=== PATIENT | male | born 1940 | race Caucasian/White ===

== ENCOUNTER 2017-03-15 11:11 | Inpatient (IN) | payer MEDICARE ==
[~2017-03-15] VITALS: Ht 170.2 cm; Wt 67.3 kg
[2017-03-15] VITALS (8 sets, daily range): BP systolic 90–130; BP diastolic 56–84; PULSE 89–118; RESP 20–40; TEMP 98.1; Ht 170.2 cm; Wt 67.3 kg
--- NOTE | 2017-03-15 11:39 | RADRPT ---
PROCEDURE: XR Chest. CLINICAL INDICATION: Shortness of breath TECHNIQUE: Chest AP portable. COMPARISON: No comparison available. FINDINGS: The mediastinal structures are unremarkable. There is calcification of the thoracic aorta (consiste nt with atherosclerosis). There is mild cardiomegaly. The pulmonary vascularity is normal. There is extensive bilateral interstitial nodular disease. No consolidation is identified. The pleural s paces are unremarkable. There are senescent changes of the axial skeleton. IMPRESSION: Calcification of the thoracic aorta (consistent with atherosclerosis) Mild cardiomegaly Extensive bilateral interstitial nodular disease Recommendations: CT chest for further evaluation RPTAT: HGDB .Louie Connelly MD, MD Date Time Electronically viewed and signed by .Louie Connelly MD, MD on 03/15/2017 11:38 .B/
[2017-03-15 11:44] LABS: AADO2 Arterial 403.9 mmHg (7.0-24.0); Allen Test ACCEPTAB; Arterial Base Excess 7.6 mmol/L (-3.0-3); Arterial COHb 0.8 % (0.0-3.0); Arterial HCO3 33.8 mmol/L (22.0-26.0); Arterial MetHb 0.4 % (0.0-1.5); Arterial Total Hemglobin 13.8 g/dl (12.0-18.0); Blood Gas IEPAP 15/8; Blood Gas PS 7; MODE MASK - BIPAP
[2017-03-15] MEDS ORDERED: LEVOFLOXACIN 750MG/D5W (PMX) 150 ML IVPB ONE (12:00)
[2017-03-15] MEDS ORDERED: VANCOMYCIN 1 GM (PMX) 250 ML IVPB SCH (12:00)
[2017-03-15] MEDS ORDERED: ACET325S PO (12:00)
[2017-03-15] MEDS ORDERED: PIPER-TAZO 3.375 GM IV (PMX) 100 ML IVPB ONE (12:00)
[2017-03-15 12:06] LABS: ADD SCAN DIFF NO
[2017-03-15 12:15] LABS: BASOPHILS % 0.3 % (0.0-2.0); EOSINOPHILS % 0.3 % (0.0-7.0); HEMATOCRIT 41.9 % (42.0-52.0); HEMOGLOBIN 13.8 g/dl (14.0-18.0); LYMPHOCYTES # 0.8 10^3/ul (0.8-2.9); LYMPHOCYTES % 8.3 % (15.0-51.0); MEAN CORPUSCULAR HEMOGLOBIN 31.3 pg (29.0-33.0); MEAN CORPUSCULAR HGB CONC 32.9 g/dl (32.0-37.0); MONOCYTE # 0.5 10^3/ul (0.3-0.9); MONOCYTES % 5.4 % (0.0-11.0); NEUTROPHIL # 8.4 10^3/ul (1.6-7.5); NEUTROPHILS % 83.7 % (39.0-77.0); PLATELET COUNT 243 10^3/UL (140-415); RED BLOOD COUNT 4.41 10^6/ul (4.70-6.10); RED CELL DISTRIBUTION WIDTH 13.2 % (11.5-14.5)
[2017-03-15] MEDS ORDERED: SERT25TA PO (12:17)
[2017-03-15] MEDS ORDERED: LACTINEX PO (12:17)
[2017-03-15] MEDS ORDERED: SENN-53 PO (12:17)
[2017-03-15] MEDS ORDERED: IPRA3AMP INHALATION (12:17)
[2017-03-15] MEDS ORDERED: MYL80 PO (12:17)
[2017-03-15] MEDS ORDERED: NOVO3I SC (12:17)
[2017-03-15] MEDS ORDERED: CHOL400T10 PO (12:17)
[2017-03-15] MEDS ORDERED: MIRT7.5T8 PO (12:17)
[2017-03-15] MEDS ORDERED: ATOR10TA65 PO (12:17)
[2017-03-15] MEDS ORDERED: CALC200T3 PO (12:17)
[2017-03-15] MEDS ORDERED: CLON-379 PO (12:17)
[2017-03-15] MEDS ORDERED: ALPR0.254 PO (12:17)
[2017-03-15] MEDS ORDERED: DICY10CA60 PO ×2 (12:17→12:19)
[2017-03-15] MEDS ORDERED: PANT40TA3 PO (12:17)
[2017-03-15] MEDS ORDERED: BISA10SU75 PR (12:17)
[2017-03-15] MEDS ORDERED: MULT-276 PO (12:17)
[2017-03-15] MEDS ORDERED: FLUT9.9S NASAL (12:17)
[2017-03-15] MEDS ORDERED: PRED10TA PO (12:17)
[2017-03-15] MEDS ORDERED: MAG355OR15 PO (12:17)
[2017-03-15] MEDS ORDERED: SYMB80120 INHALATION (12:17)
[2017-03-15] MEDS ORDERED: FOLI-49 PO (12:17)
[2017-03-15] MEDS ORDERED: GUAI120011 PO (12:17)
[2017-03-15 12:23] LABS: ALBUMIN 3.7 g/dl (3.3-4.9)
[2017-03-15 12:24] LABS: CHLORIDE 94 mmol/L (97-110); INR 0.96; PARTIAL THROMBOPLASTIN TIME 28.5 Sec (25.0-35.0); POTASSIUM 5.1 mmol/L (3.5-5.1); PROTIME 12.8 Sec (12.2-14.2); SODIUM 134 mmol/L (135-144)
[2017-03-15 12:26] LABS: BILIRUBIN,INDIRECT 0.5 mg/dl (0-1.1); BILIRUBIN,TOTAL 0.5 mg/dl (0.2-1.3); CREATININE 0.55 mg/dl (0.61-1.24)
[2017-03-15 12:27] LABS: ALANINE AMINOTRANSFERASE 43 IU/L (13-69); ALKALINE PHOSPHATASE 74 IU/L (42-121); ANION GAP 10 (8-16); ASPARTATE AMINO TRANSFERASE 27 IU/L (15-46); BLOOD UREA NITROGEN 14 mg/dl (7-20); CALCIUM 9.4 mg/dl (8.4-10.2); CARBON DIOXIDE 35 mmol/L (21-31); GLUCOSE 146 mg/dl (70-220); TOTAL PROTEIN 7.4 g/dl (6.1-8.1)
[2017-03-15 12:50] LABS: TROPONIN-I < 0.012 ng/ml (0.00-0.12)
--- NOTE | 2017-03-15 12:59 | ERA ---
ER Documentation Chief Complaint Date/Time DATE: 03/15/17 TIME: 1119 Chief Complaint BIB RA FOR EVAL OF SOB. CPAP ON ARRIVAL HPI 76-year-old male brought to the emergency department by ambulance for evaluation of shortness of breath. Patient arrives in respiratory distress unable to provide history. History available from my conversations with the patient's daughter. Patient has an extensive history of pulmonary fibrosis with previous episodes of decompensation. Over the last few hours, patient's been having increasing shortness of breath. He reports no chest pain, fevers, hemoptysis, sputum production. 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 Pre-hospital vital signs were reviewed. Pre-hospital diagnostic tests were reviewed. BiPAP was initiated from the paramedics Upon arrival, patient remains in respiratory distress. ROS All systems reviewed and are negative except as per history of present illness. Medications Home Meds Reported Medications Dicyclomine Hcl* (Bentyl*) 10 Mg Capsule, 20 MG PO QID, CAP 03/15/17 Cholecalciferol* (Vitamin D*) 400 Unit Tablet, 1200 UNIT PO DAILY, TAB 03/15/17 Simethicone* (Mylicon*) 80 Mg Tab, 80 MG PO Q8H, TAB 03/15/17 Sennosides* (Senna Lax*) 8.6 Mg Tablet, 1 TAB PO BID, TAB 03/15/17 Sertraline Hcl* (Zoloft*) 25 Mg Tablet, 25 MG PO DAILY, #30 TAB 03/15/17 Pantoprazole* (Protonix*) 40 Mg Tablet.dr, 40 MG PO DAILY, TAB 03/15/17 Multivit,Tx,Iron/Calcm/FA/Mins (Thera-M Caplet) 1 Each Tablet, 1 TAB PO DAILY, TAB 03/15/17 Prednisone* (Prednisone*) 10 Mg Tab, 10 MG PO DAILY, TAB 03/15/17 Mag Hydrox/Al Hydrox/Simeth (Maalox Plus X-Strength Susp) 355 Ml Oral.susp, 30 ML PO Q4H Y for STOMACH UPSET 03/15/17 Lactobacillus Acidophilus* (Lactinex*) 1 Tab Chew, 1 TAB PO DAILY, TAB 03/15/17 Insulin Aspart* (Novolog Insulin Pen*) 100 Unit/Ml Soln, 0-12 SC .SLIDING SCALE AC, EA 03/15/17 Guaifenesin (Mucinex) 1,200 Mg Tab.er.12h, 600 MG PO BID WITH MEALS, TAB 03/15/17 Fluticasone Propionate (Flonase Allergy Relief) 9.9 Ml Anthony.susp, 1 SPRAY NASAL BID, #1 BOTTLE TO EACH NOSTRIL 03/15/17 Ipratropium-Albuterol (Ipratropium-Albuterol) 0.5-3 Mg/3 Ml Ampul.neb, 3 ML INHALATION Q4, #30 VIAL 03/15/17 Dicyclomine Hcl* (Bentyl*) 10 Mg Capsule, 10 MG PO QID, CAP 03/15/17 Clonidine Hcl* (Clonidine Hcl*) 0.1 Mg Tab, 0.1 MG PO Q6 Y for HTN, TAB 03/15/17 Calcium Carbonate (Tums) 200MG Calcium Chew, 1000 TAB PO Q4 Y for heart burn, TAB.CHEW 03/15/17 Mirtazapine* (Mirtazapine*) 7.5 Mg Tablet, 7.5 MG PO HS, TAB 03/15/17 Budesonide-Formoterol Fumarate* (Symbicort*) 80-4.5 Inha, 2 PUFFS INHALATION BID , #1 EACH 03/15/17 Bisacodyl* (Bisacodyl*) 10 Mg Supp, 10 MG CA Q24H Y for CONSTIPATION, SUPP 03/15/17 Atorvastatin Calcium (Atorvastatin Calcium) 10 Mg Tablet, 10 MG PO QHS, #30 TAB 03/15/17 Folic Acid* (Folic Acid*) 1 Mg Tablet, 1 MG PO DAILY, TAB 03/15/17 Alprazolam* (Alprazolam*) 0.25 Mg Tablet, 0.25 MG PO DAILY Y for ANXIETY, TAB 03/15/17 Acetaminophen* (Acetaminophen* Susp) 325 Mg/10.15 Ml Solution, 650 MG PO Q4H Y for PAIN LEVEL 1-5, ML 03/15/17 Allergies Allergies: Coded Allergies: No Known Allergy (Unverified , 03/15/17) PMhx/Soc Medical and Surgical Hx: pt denies Surgical Hx Hx Respiratory Disorders: Yes (pulmonary fibrosis) Hx Cardiac Disorders: No Hx Psychiatric Problems: Yes (anxiety.) Hx Miscellaneous Medical Probl: No (gerd) Hx Alcohol Use: No Hx Substance Use: No Hx Tobacco Use: No Smoking Status: Never smoker FmHx Noncontributory for chief complaint Physical Exam Vitals Vital Signs Date Time Temp Pulse Resp B/P Pulse Ox O2 Delivery O2 Flow Rate FiO2 03/15/17 11:41 Simple Mask 03/15/17 11:20 119 100 100 03/15/17 11:18 117 19 152/93 97 Physical Exam GENERAL: Patient is well-developed well-nourished and significant respiratory distress HEENT: Pupils equal, round, and reactive to light. EOMI. There is no scleral icterus. NECK: C-spine is soft and supple, there is no meningismus. There is no cervical lymphadenopathy. No tracheal deviation or JVD LUNGS: Crackles at bilateral bases. Patient is tachypneic and requiring assistance with BiPAP HEART: Sinus tachycardia with no murmurs rubs or gallops ABDOMEN: Soft, non-tender, non-distended. There are bowel sounds in all four quadrants. No rebound or guarding. EXTREMITIES: There is no peripheral cyanosis or edema. No focal swelling or erythema. NEURO: The patient moves all four extremities with 5/5 strength. Cranial nerves II - XII are intact. Normal gait. Alert and oriented SKIN: There is no apparent rash or petechiae. HEME/LYMPHATIC: There is no evidence of excessive bruising or lymphedema. PSYCHIATRIC: The patient does not appear anxious or depressed. Result Diagram: 03/15/17 1150 03/15/17 1150 Results 24 hrs Laboratory Tests Test 03/15/17 11:19 03/15/17 11:50 Blood Gas Specimen Source Blood arterial Arterial Blood Date Drawn 03/15/2017 11:27:00 AM Arterial Blood pH (Temp corrected) 7.417 Arterial Blood pCO2 (Temp correct) 53.7mmhg Arterial Blood pO2 (Temp corrected) 255.4mmHG Arterial Blood HCO3 33.8mmol/L Arterial Blood Base Excess 7.6mmol/L Arterial Blood Oxygen Saturation 99.2mmHG Murtaza Test ACCEPTAB Arterial Blood Gas Puncture Site Left Radial Arterial Blood Carboxyhemoglobin 0.8% Arterial Blood Methemoglobin 0.4% Blood Gas A-a O2 Differential 403.9mmHg Oxyhemoglobin Percent 98.0% Total Hemoglobin 13.8g/dl Blood Gas Temperature 37.0C Blood Gas Respiration Rate 20.0 Blood Gas Actual Respiration Rate 36 Blood Gas Modality MASK - BIPAP FiO2 100.0% Blood Gas Pressure Support 7 Blood Gas IPAP/EPAP Ratio 15/8 Blood Gas Notified Whom Rena Blood Gas Notified Time 03/15/2017 11:43:50 AM White Blood Count 10.010^3/ul Red Blood Count 4.4110^6/ul Hemoglobin 13.8g/dl Hematocrit 41.9% Mean Corpuscular Volume 95.0fl Mean Corpuscular Hemoglobin 31.3pg Mean Corpuscular Hemoglobin Concent 32.9g/dl Red Cell Distribution Width 13.2% Platelet Count 58339^3/UL Mean Platelet Volume 9.0fl Neutrophils % 83.7% Lymphocytes % 8.3% Monocytes % 5.4% Eosinophils % 0.3% Basophils % 0.3% Nucleated Red Blood Cells % 0.0/100WBC Neutrophils # 8.410^3/ul Lymphocytes # 0.810^3/ul Monocytes # 0.510^3/ul Eosinophils # 0.010^3/ul Basophils # 0.010^3/ul Nucleated Red Blood Cells # 0.010^3/ul Prothrombin Time 12.8Sec Prothrombin Time Ratio 1.0 INR International Normalized Ratio 0.96 Activated Partial Thromboplast Time 28.5Sec Sodium Level 134mmol/L Potassium Level 5.1mmol/L Chloride Level 94mmol/L Carbon Dioxide Level 35mmol/L Anion Gap 10 Blood Urea Nitrogen 14mg/dl Creatinine 0.55mg/dl Glucose Level 146mg/dl Lactic Acid Level 3.5mmol/L Calcium Level 9.4mg/dl Total Bilirubin 0.5mg/dl Direct Bilirubin 0.00mg/dl Indirect Bilirubin 0.5mg/dl Aspartate Amino Transf (AST/SGOT) 27IU/L Alanine Aminotransferase (ALT/SGPT) 43IU/L Alkaline Phosphatase 74IU/L Troponin I < 0.012ng/ml Total Protein 7.4g/dl Albumin 3.7g/dl Globulin 3.70g/dl Albumin/Globulin Ratio 1.00 Current Medications Medications (Trade) Dose Ordered Sig/Kash Route PRN Reason Start Time Stop Time Status Last Admin Dose Admin Vancomycin HCl 250 ml @ 125 mls/hr ONCE IVPB 03/15/17 12:00 03/15/17 13:59 Piperacillin Sod/ Tazobactam Sod 100 ml @ 200 mls/hr ONCE ONCE IVPB 03/15/17 12:00 03/15/17 12:29 DC 03/15/17 11:52 Levofloxacin/ Dextrose (Levaquin 750 Mg/ D5W 150 ml (Pmx)) 150 ml @ 100 mls/hr ONCE ONCE IVPB 03/15/17 12:00 03/15/17 13:29 03/15/17 12:18 Procedures/MDM Patient was taken to a room, seen and evaluated. Comfort measures were initiated. BiPAP was continued. Intubation was considered, but the patient had stated that he did not wish to be intubated and therefore this was not done. Diagnostic tests were ordered and reviewed. 3 LEAD RHYTHM STRIP: Sinus tachycardia EK lead EKG reviewed by myself: Sinus tachycardia Normal Leroy and intervals Nonspecific ST and T-wave changes with no obvious ST elevation. There are T- wave inversion inferiorly and anteriorly Impression: Abnormal EKG RADIOLOGY: reviewed with the radiologist CONSULTATION: Dr. Lazar was notified for admission for the patient's primary care doctor REEVALUATION: Patient improved on BiPAP and did not require further intubation. His work of breathing improved as well. MEDICAL DECISION MAKING: Patient presents for shortness of breath. Differential diagnosis entertained included asthma, pneumonia, other cardiac and pulmonary concerns. After reviewing the patient's diagnostic tests and clinical presentation, patient appears to have a decompensation of his pulmonary fibrosis likely complicated by a pneumonia. His pneumonia is healthcare associated and he has been started on broad-spectrum antibiotics. Patient has required significant respiratory support with BiPAP and does not wish to be intubated. Fortunately, his saturations are being maintained and his work of breathing is improving with BiPAP. Patient's lactate is noted to be elevated and antibiotics have been initiated. I have withheld fluids, because of his tenuous respiratory status that I believe will be better served without aggressive high-volume fluid resuscitation. Patient will be admitted for further IV antibiotics and supportive care. CRITICAL CARE: Time:>35 minutes Patient has a significant chance of clinical deterioration Treatments/Evaluations: Close monitoring and treatment of unstable vital signs, cardiorespiratory, and neurologic status, while maintaining tight balance of fluid, respiratory, and cardiac interventions. Departure Diagnosis: Primary Impression: Respiratory failure Additional Impressions: Pulmonary fibrosis Healthcare-associated pneumonia Condition: Critical RAFIQ DEL TORO March 15, 2017 12:59
[2017-03-15] MEDS ORDERED: ONDANSETRON 4 MG INJ IV PRN (13:30)
[2017-03-15] MEDS ORDERED: morphine 2 MG INJ IV PRN (13:30)
[2017-03-15] MEDS ORDERED: LORAZEPAM 2 MG INJ ONE (15:44)
[2017-03-15] MEDS ORDERED: LORAZEPAM 2 MG INJ IV ONE (16:00)
[2017-03-15] MEDS ORDERED: GLUCOSE GEL 15 GRAM TUBE BUCCAL PRN (16:00)
[2017-03-15] MEDS ORDERED: GLUCAGON 1 MG INJ IM PRN (16:00)
[2017-03-15] MEDS ORDERED: GLUCOSE GEL 15 GRAM TUBE PO PRN ×2 (16:00)
[2017-03-15] MEDS ORDERED: LORAZEPAM 2 MG INJ IV PRN (16:00)
[2017-03-15] MEDS ORDERED: DEXTROSE 50% 50 ML SYRINGE IV PRN ×2 (16:00)
[2017-03-15] MEDS: METHYLPRED. NA SUCC 500 MG in DEXTROSE 5% 50 ML IVPB SCH (16:38)
--- NOTE | 2017-03-15 16:59 | CONS ---
DATE OF ADMISSION: 03/15/2017 DATE OF CONSULTATION: 03/15/2017 TYPE OF CONSULTATION: Pulmonary. PRIMARY PHYSICIAN: Dr. Tessa Lazar REASON FOR CONSULTATION: Hypoxemic respiratory insufficiency. HISTORY OF PRESENT ILLNESS: Briefly, this is a 76-year-old gentleman with a history of idiopathic p ulmonary fibrosis diagnosed approximately 1 year ago, initially treated at [facility] [place], followed more recently at [facility] and most recent prolonged stay at [facility] where he was managed and had his oxygen requirements reduced to 6 liters. He has subsequ ently been transferred to [facility] where he has been for the past 1 week. Of note, [place] [facility] [place] is currently not on either medication. PAST MEDICAL HISTORY: As noted above. PAST SURGICAL HISTORY: None. MEDICATIONS: Please see MAR. ALLERGIES: NONE. SOCIAL HISTORY: No tobacco, alcohol or illicit drug use. FAMILY HISTORY: Noncontributory. REVIEW OF SYSTEMS: As noted in the HPI. MEDICATIONS: See MAR. PHYSICAL EXAMINATION VITAL SIGNS: Oxygen saturation 98% on 10 liter high flow nasal cannula, blood pressure 105/71, hear t rate is 100, temperature is 98.1. HEENT: Normocephalic, atraumatic. NECK: Jugular venous pressures are mildly distended. CARDIOVASCULAR: Regular rate and rhythm, prominent S2 of the second heart sound with a II/ systol ic murmur heard at the left upper sternal border. CHEST: There are bibasilar fine rales heard bilaterally. ABDOMEN: Soft, nontender. EXTREMITIES: No cyanosis, clubbing or edema. Mucous membranes actually appear dry. LABORATORY DATA: WBC is 10.1, hemoglobin is 13.8. Bicarbonate is 35. ABG: pH is 7.42, pCO2 is 54 , pO2 is 255. BNP is 1980. Chest x-ray shows extremely low lung volumes, very advanced bilateral r eticular interstitial markings noted. IMPRESSION: Hypoxemic respiratory insufficiency secondary to possible acute exacerbated of IPF. The re is no evidence of significant volume overload despite the BNP, although this may represent some R V overload. Also, there is no obvious evidence of an active infectious process. RECOMMENDATIONS: 1. Vapotherm via high-flow nasal cannula to keep sats 88% to 92. 2. Pulse dose steroids with Solu-Medrol 500 IV daily x3 days and then rapid titration. 3. Check a 2D echo. 4. Will hold off diuresis given that he appears somewhat dry; however, overall would favor slight d iuresis. 5. Broad spectrum antibiotics for the time being with plans to de-escalate. 6. DVT and gastrointestinal prophylaxis to be implemented. 7. Very close monitoring of fingersticks and insulin sliding scale. Dictated By: EFRAIN FLORES MD NK/AMY Conf#: [id number] DID#: [id number] CC: LIZ FISHER MD; DE BENSON MD; Cady;*Delores*
[2017-03-15] MEDS ORDERED: PENDING SANTYL ORDER FOR WOUND CARE XX PRN (19:30)
[2017-03-15] MEDS: INSULIN ASPART [NOVOLOG] 3 ML PEN SC SCH ×2 (19:30→20:54)
[2017-03-15] MEDS: FAMOTIDINE 20 MG INJ IV SCH (20:54)
[2017-03-16] VITALS (22 sets, daily range): BP systolic 92–124; BP diastolic 64–86; PULSE 100–118; RESP 20–41
[2017-03-16 06:19] LABS: ADD SCAN DIFF NO
[2017-03-16 06:27] LABS: HEMATOCRIT 38.8 % (42.0-52.0); LYMPHOCYTES # 0.6 10^3/ul (0.8-2.9); LYMPHOCYTES % 8.5 % (15.0-51.0); MEAN CORPUSCULAR HEMOGLOBIN 31.6 pg (29.0-33.0); MEAN CORPUSCULAR HGB CONC 33.5 g/dl (32.0-37.0); MEAN CORPUSCULAR VOLUME 94.4 fl (82.0-101.0); MEAN PLATELET VOLUME 9.2 fl (7.4-10.4); MONOCYTE # 0.2 10^3/ul (0.3-0.9); MONOCYTES % 3.4 % (0.0-11.0); NEUTROPHIL # 6.1 10^3/ul (1.6-7.5); NEUTROPHILS % 85.8 % (39.0-77.0); PLATELET COUNT 206 10^3/UL (140-415); RED BLOOD COUNT 4.11 10^6/ul (4.70-6.10); RED CELL DISTRIBUTION WIDTH 13.1 % (11.5-14.5); WHITE BLOOD COUNT 7.1 10^3/ul (4.8-10.8)
[2017-03-16 06:58] LABS: CALCIUM 9.3 mg/dl (8.4-10.2); CREATININE 0.53 mg/dl (0.61-1.24)
[2017-03-16] MEDS: INSULIN ASPART [NOVOLOG] 3 ML PEN SC SCH ×4 (07:45→20:47)
[2017-03-16 08:01] LABS: AADO2 Arterial 566.5 mmHg (7.0-24.0); Allen Test ACCEPTAB; Arterial Base Excess 8.6 mmol/L (-3.0-3); Arterial COHb 0.6 % (0.0-3.0); Arterial Fraction of Oxyhgb 95.3 % (93.0-99.0); Arterial HCO3 35.4 mmol/L (22.0-26.0); Arterial MetHb 0.4 % (0.0-1.5); Arterial Total Hemglobin 13.9 g/dl (12.0-18.0); MODE HFNC
[2017-03-16] MEDS ORDERED: ENOXAPARIN 30 MG/0.3 ML SYG SC SCH (09:00)
[2017-03-16] MEDS: FAMOTIDINE 20 MG INJ IV SCH ×2 (09:12→20:32)
[2017-03-16] MEDS: METHYLPRED. NA SUCC 500 MG in DEXTROSE 5% 50 ML IVPB SCH (09:13)
[2017-03-16] MEDS: ENOXAPARIN 40 MG/0.4 ML SYG SC SCH (09:16)
--- NOTE | 2017-03-16 09:32 | CONS ---
Date/Time of Note Date/Time of Note DATE: 03/16/17 TIME: 09:27 Assessment/Plan Assessment/Plan Additional Assessment/Plan Assessment recommendations; next 1. Patient admitted with exacerbation of primary fibrosis currently on Solu- Medrol. Also getting high flow oxygen. Patient did not tolerate BiPAP well. 2. Possibly some element of bronchopneumonia, patient on broad-spectrum antibiotic coverage. 3. Mild CHF. Continue current treatment. Patient can be transferred to medical floor. Prognosis is poor. Consultation Date/Type/Reason Admit Date/Time March 15, 2017 at 12:55 Initial Consult Date Type of Consultation: Pulmonary/critical care 24 HR Interval Summary Free Text/Dictation Patient condition is tenuous but stable. Patient reports minimal shortness of breath. Denies any wheezing, chest pain, fever chills. General exam; elderly male, awake alert currently in no distress. Exam/Review of Systems Vital Signs Vitals Vital Signs Date Time Temp Pulse Resp B/P Pulse Ox O2 Delivery O2 Flow Rate FiO2 03/16/17 08:00 107 03/16/17 07:42 94 100 03/16/17 06:00 29 109/82 High Flow 03/16/17 04:00 97.8 03/15/17 17:26 10.0 Intake and Output 03/15/17 03/15/17 03/16/17 15:00 23:00 07:00 Output Total 400 ml Balance -400 ml Exam HEENT exam is; supple neck, no JVD. No lymphadenopathy. Midline trachea. No thyromegaly. Patient has upper denture. Has multiple lower jaw carious teeth. Has bilateral intraocular lens implants. Chest examination; diffuse bilateral crackles. S1-S2 audible, no murmurs. Regular rhythm. Abdomen examination; protuberant. No organomegaly. Bowel sounds audible. No clubbing. Extremity examination; no peripheral edema. TRAVEL CLERK examination; no focal deficit. Results Result Diagram: 03/16/17 0556 03/16/17 0556 Results 24 hrs Laboratory Tests Test 03/15/17 11:19 03/15/17 11:50 03/15/17 12:45 03/15/17 19:30 Blood Gas Specimen Source Blood arterial Arterial Blood Date Drawn 03/15/2017 11:27:00 AM Arterial Blood pH (Temp corrected) 7.417 Arterial Blood pCO2 (Temp correct) 53.7 H Arterial Blood pO2 (Temp corrected) 255.4 H Arterial Blood HCO3 33.8 H Arterial Blood Base Excess 7.6 H Arterial Blood Oxygen Saturation 99.2 Murtaza Test ACCEPTAB Arterial Blood Gas Puncture Site Left Radial Arterial Blood Carboxyhemoglobin 0.8 Arterial Blood Methemoglobin 0.4 Blood Gas A-a O2 Differential 403.9 H Oxyhemoglobin Percent 98.0 Total Hemoglobin 13.8 Blood Gas Temperature 37.0 Blood Gas Respiration Rate 20.0 Blood Gas Actual Respiration Rate 36 Blood Gas Modality MASK - BIPAP FiO2 100.0 Blood Gas Pressure Support 7 Blood Gas IPAP/EPAP Ratio 15/8 Blood Gas Notified Whom M.DPetey Blood Gas Notified Time 03/15/2017 11:43:50 AM White Blood Count 10.0 Red Blood Count 4.41 L Hemoglobin 13.8 L Hematocrit 41.9 L Mean Corpuscular Volume 95.0 Mean Corpuscular Hemoglobin 31.3 Mean Corpuscular Hemoglobin Concent 32.9 Red Cell Distribution Width 13.2 Platelet Count 243 Mean Platelet Volume 9.0 Neutrophils % 83.7 H Lymphocytes % 8.3 L Monocytes % 5.4 Eosinophils % 0.3 Basophils % 0.3 Nucleated Red Blood Cells % 0.0 Neutrophils # 8.4 H Lymphocytes # 0.8 Monocytes # 0.5 Eosinophils # 0.0 Basophils # 0.0 Nucleated Red Blood Cells # 0.0 Prothrombin Time 12.8 Prothrombin Time Ratio 1.0 INR International Normalized Ratio 0.96 Activated Partial Thromboplast Time 28.5 Sodium Level 134 L Potassium Level 5.1 Chloride Level 94 L Carbon Dioxide Level 35 H Anion Gap 10 Blood Urea Nitrogen 14 Creatinine 0.55 L Glucose Level 146 Lactic Acid Level 3.5 H 1.3 1.0 Calcium Level 9.4 Total Bilirubin 0.5 Direct Bilirubin 0.00 Indirect Bilirubin 0.5 Aspartate Amino Transf (AST/SGOT) 27 Alanine Aminotransferase (ALT/SGPT) 43 Alkaline Phosphatase 74 Troponin I < 0.012 B-Type Natriuretic Peptide 1980 H Total Protein 7.4 Albumin 3.7 Globulin 3.70 H Albumin/Globulin Ratio 1.00 Test 03/15/17 20:53 03/16/17 05:56 03/16/17 07:00 03/16/17 07:52 Bedside Glucose 126 120 White Blood Count 7.1 # Red Blood Count 4.11 L Hemoglobin 13.0 L Hematocrit 38.8 L Mean Corpuscular Volume 94.4 Mean Corpuscular Hemoglobin 31.6 Mean Corpuscular Hemoglobin Concent 33.5 Red Cell Distribution Width 13.1 Platelet Count 206 Mean Platelet Volume 9.2 Neutrophils % 85.8 H Lymphocytes % 8.5 L Monocytes % 3.4 Eosinophils % 0.0 Basophils % 0.0 Nucleated Red Blood Cells % 0.0 Neutrophils # 6.1 Lymphocytes # 0.6 L Monocytes # 0.2 L Eosinophils # 0.0 Basophils # 0.0 Nucleated Red Blood Cells # 0.0 Sodium Level 133 L Potassium Level 5.0 Chloride Level 97 Carbon Dioxide Level 33 H Anion Gap 8 Blood Urea Nitrogen 19 Creatinine 0.53 L Glucose Level 124 Calcium Level 9.3 Blood Gas Specimen Source Blood arterial Arterial Blood Date Drawn 03/16/2017 7:52:34 AM Arterial Blood pH (Temp corrected) 7.406 Arterial Blood pCO2 (Temp correct) 57.6 H Arterial Blood pO2 (Temp corrected) 88.9 Arterial Blood HCO3 35.4 H Arterial Blood Base Excess 8.6 H Arterial Blood Oxygen Saturation 96.3 Murtaza Test ACCEPTAB Arterial Blood Gas Puncture Site Right Radial Arterial Blood Carboxyhemoglobin 0.6 Arterial Blood Methemoglobin 0.4 Blood Gas A-a O2 Differential 566.5 H Oxyhemoglobin Percent 95.3 Total Hemoglobin 13.9 Blood Gas Temperature 37.0 Blood Gas Modality HFNC FiO2 100.0 Blood Gas Notified Whom JLD Blood Gas Notified Time 03/16/2017 8:01:13 AM Medications Medications Current Medications Ondansetron HCl (Zofran Inj) 4 mg Q6H PRN IV NAUSEA AND/OR VOMITING; Start at 13:30 Acetaminophen (Tylenol Liquid) 650 mg Q6H PRN PO PAIN LEVEL 1-3 OR FEVER; Start 03/15/17 at 13:30 Morphine Sulfate (morphine) 2 mg Q4H PRN IV PAIN LEVEL 7-10; Start 03/15/17 at 13:30 Famotidine 20 mg 20 mg Q12 IV Last administered on 03/16/17 09:12; Admin Dose 20 MG; Start 03/15/17 at 21:00 Methylprednisolone Sodium Succinate/ Dextrose (Solu-Medrol/D5W) 50 ml @ 100 mls /hr DAILY IVPB Last administered on 03/16/17 09:13; Admin Dose 100 MLS/HR; Start 03/15/17 at 15:30; Stop 03/18/17 at 15:29 Enoxaparin Sodium (Lovenox) 40 mg DAILY SC Last administered on 03/16/17 09:16 ; Admin Dose 40 MG; Start 03/16/17 at 09:00 Lorazepam (Ativan) 1 mg Q2H PRN IV ANXIETY Last administered on 03/15/17 23:21 ; Admin Dose 1 MG; Start 03/15/17 at 16:00 Miscellaneous Information 1 ea NOTE XX ; Start 03/15/17 at 16:00 Glucose (Glutose) 15 gm Q15M PRN PO DECREASED GLUCOSE; Start 03/15/17 at 16:00 Glucose (Glutose) 22.5 gm Q15M PRN PO DECREASED GLUCOSE; Start 03/15/17 at 16: 00 Dextrose (D50w Syringe) 25 ml Q15M PRN IV DECREASED GLUCOSE; Start 03/15/17 at 16:00 Dextrose (D50w Syringe) 50 ml Q15M PRN IV DECREASED GLUCOSE; Start 03/15/17 at 16:00 Glucagon (Glucagen) 1 mg Q15M PRN IM DECREASED GLUCOSE; Start 03/15/17 at 16:00 Glucose (Glutose) 15 gm Q15M PRN BUCCAL DECREASED GLUCOSE; Start 03/15/17 at 16 :00 [facility]iscellaneous [facility] This patient meade... PRN PRN XX WOUND CARE; Start 03/15/17 at 19:30 POLO HOOKS March 16, 2017 09:32
--- NOTE | 2017-03-16 10:58 | RADRPT ---
Echocardiogram Report Patient Name: NEW ABDUL Gender: Male Date: 1940 Study Date: 16-Mar-2017 Manager Customs: Joe Ziegler RDCS Location: [address] [place] [address]. Physician: EFRAIN FLORES Quality: Technically Difficult Study Procedures: Transthoracic echocardiogram with complete 2D, M-Mode, and doppler examination. Indications: IPF. 2D/M Mode Doppler Measurement Value Normal Ranges Measurement Value Normal Ranges LVIDd 2D 4.1 3.5 - 5.6 cm DANTE Vmax 0.5 cm2 LVIDs 2D 3.7 2.1 - 4.1 cm DANTE VTI 0.5 cm2 LVPWd 2D 1.0 0.6 - 1.1 cm AV Mean Neptali 2.7 m/sec IVSd 2D 1.4 0.6 - 1.1 cm AV Mean PG 35.3 mmHg AoR Diam 2D 2.0 2.0 - 3.7 cm AV Peak Neptali 4.0 m/sec EDV 2D 73.4 cm3 AV Peak PG 63.6 mmHg ESV 2D 49.5 cm3 AV VTI 73.3 cm LA Dimen 2D 4.3 2.3 - 4.0 cm LVOT Mean Neptali 0.5 m/sec LVOT Diam 1.8 cm LVOT Mean PG 1.3 mmHg LVOT Peak Neptali 0.8 m/sec LVOT Peak PG 2.6 mmHg LVOT VTI 17.4 cm MV E Peak Neptali 0.4 m/sec MV A Peak Neptali 0.3 m/sec MV E/A 1.2 MV Decel Time 66 msec MV Decel [place] 6 MV E/A 1.2 Findings Left Ventricle: Normal left ventricular systolic function. Normal left ventricular cavity size. Mild asymmetric septal hypertrophy. Ejection fraction is visually estimated at 65 %. Right Ventricle: Normal right ventricular size. Normal right ventricular systolic function. Left Atrium: There is mild enlargement of left atrium. Right Atrium: The right atrium is normal in size. Mitral Valve: Mild mitral leaflet calcification. Moderate mitral annular calcification. Mild mitral valve regurgitation. Aortic Valve: Aortic valve not well visualized. Severe aortic stenosis. Max PG 63.60 mmHg. Mean PG 35.30 mmHg. Aortic valve area 0.60 cm2. Aortic cusps appear severely calcified. No aortic regurgitation. Tricuspid Valve: Normal appearance of the tricuspid valve. Unable to obtain RVSP due to minimal presence of tricuspid regurgitation. Pulmonic Valve: Pulmonic valve not well visualized. Pericardium: Normal pericardium with no significant pericardial effusion. Aorta: Normal aortic root. IVC: The IVC is not well visualized. Conclusions 1.Normal left ventricular systolic function. Normal left ventricular cavity size. Mild asymmetric septal hypertrophy. Ejection fraction is visually estimated at 65 %. 2.There is mild enlargement of left atrium. 3.Mild mitral leaflet calcification. Moderate mitral annular calcification. Mild mitral valve regurgitation. 4.Aortic valve not well visualized. Severe aortic stenosis. Max PG 63.60 mmHg. Mean PG 35.30 mmHg. Aortic valve area 0.60 cm2. Aortic cusps appear severely calcified. No aortic regurgitation. 5.Normal appearance of the tricuspid valve. Unable to obtain RVSP due to minimal presence of tricuspid regurgitation. 6.The IVC is not well visualized. Electronically Signed By: Yohannes Pereira 16-Mar-2017 10:58:04 -0700 Patient Name: NEW ABDUL Study Date: 16-Mar-2017 [id number]
--- NOTE | 2017-03-16 12:40 | HP ---
DATE OF ADMISSION: 03/15/2017 CHIEF COMPLAINT: Shortness of breath. HISTORY OF PRESENT ILLNESS: The patient is a 76-year-old gentleman with history of pulmonary fibros is. The patient was recuperating at [facility] and was brought to the emergency room for increasing shortness of breath. The patient was on supplemental oxygen via nasal cannula at [facility]. The patient was on BiPAP on arrival by paramedics. The patient underwent a chest x-ray in the emergency room which revealed calcification of thoracic aorta consistent with ath erosclerosis, mild cardiomegaly, extensive bilateral interstitial nodular disease. The patient was placed on BiPAP and started on broad-spectrum antibiotics for possible pneumonia and admitted for fu rther evaluation and management to intensive care unit. No fever reported. The patient is tachycar dic. No nausea, vomiting, diarrhea reported. PAST MEDICAL HISTORY: Positive for GERD, anxiety, and pulmonary fibrosis. PAST SURGICAL HISTORY: The patient is status post bilateral cataract surgery. Denies any other toshia gical interventions. FAMILY HISTORY: Noncontributory. 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 The patient denies any tobacco use , denies any illicit drug use, denies any alcohol use, denies any prior exposure to any chemicals. ALLERGIES: NO KNOWN ALLERGIES. MEDICATIONS ON ADMISSION: 1. Include Bentyl. 2. Vitamin D. 3. Mylicon. 4. Senna. 5. Zoloft. 6. Protonix. 7. Multivitamins. 8. Prednisone. 9. Maalox p.r.n. 10. Lactinex. 11. NovoLog. 12. Flonase. 13. DuoNeb. 14. Clonidine. 15. Symbicort. 16. Dulcolax. 17. Atorvastatin. 18. Folic acid. 19. Alprazolam. 20. Tylenol p.r.n. REVIEW OF SYSTEMS: A 12-point review of systems is negative unless what was mentioned in the HPI. PHYSICAL EXAMINATION: GENERAL: Well-developed, well-nourished gentleman currently is on high-flow oxygen. The patient is awake, alert. VITAL SIGNS: Temperature is 97.8, pulse is 107, blood pressure 109/82, respiratory rate 29, oxygen saturation is 92% on 100% FIO2 Vapotherm. HEENT: Head is atraumatic, normocephalic. Pupils equal, round, reactive to light and accommodation . Oral mucosa is pink and moist. NECK: Supple, no cervical lymphadenopathy. No thyromegaly. CHEST: Lung sounds diminished with diminished air entry bilaterally. CARDIOVASCULAR: Normal S1 and S2. No murmurs, gallops, clicks, rubs noted. ABDOMEN: Round, soft, nondistended, nontender. Bowel sounds present. EXTREMITIES: There is no edema, clubbing, cyanosis. Pulses equal bilaterally, 2+. SKIN: There is no rash, petechiae noted. NEUROLOGIC: The patient is awake, alert, and oriented x4. No focal deficits noted. Motor strength is 5/5 in all extremities. LABORATORY DATA: On admission, CBC: White blood cells 10.0, hemoglobin 13.8, hematocrit 41.9, plat elets 243. Chemistry: Sodium is 133, potassium 5.0, chloride 97, carbon dioxide 33, anion gap 8, B UN is 19, creatinine 0.53, glucose 124, calcium is 9.3. PT is 12.8, INR 0.96, aPTT is 28.5. ASSESSMENT AND PLAN: 1. Hypoxemic respiratory insufficiency secondary to acute exacerbation of idiopathic pulmonary fibr osis. Dr. Santamaria is following in pulmonology consultation. Continue Vapotherm via nasal cannula. C ontinue steroids. 2. Severe aortic stenosis per echocardiogram. Dr. Pereira will be following patient in cardiology c onsultation. 3. Gastroesophageal reflux disease. Will continue Protonix. 4. Anxiety. Continue Xanax p.r.n. Also continue Accu-Cheks with moderate ____ sliding scale cover age for possible hyperglycemia secondary to high-dose steroid use. Continue Lovenox for venous thro mbosis prophylaxis. 5. Possible pneumonia. The patient is started on broad-spectrum antibiotics. Will repeat chest x- ray. Further recommendations based on clinical course. Plan of care discussed with Dr. Benson. Dictated By: CHRISTIANA HARDIN HOE RUNNER for DE BENSON MD SR/NTS Conf#: [id number] DID#: [id number]
--- NOTE | 2017-03-16 13:03 | CONS ---
DATE OF ADMISSION: 03/15/2017 DATE OF CONSULTATION: 03/16/2017 TYPE OF CONSULTATION: Cardiology consultation. REFERRING PHYSICIAN: Dr. Tessa Carey. REASON FOR CONSULTATION: Aortic stenosis. CHIEF COMPLAINT: Respiratory failure. HISTORY OF PRESENT ILLNESS: Thank you for this referral. History obtained from the patient, compa lakeon with the staff and physician, with Dr. Santamaria, extensive review of the chart. This is a very pl easant 76-year-old gentleman with history of diagnosed idiopathic pulmonary fibrosis that was diagno sed about a year ago, who was transferred to the ICU because of increasing respiratory failure. The patient has been transferred to [facility] about a week ago; however, has had increasing worse kylah shortness of breath. He has required increasing oxygen requirement and was transferred to ICU for respiratory care. Echocardiogram was done which shows severe aortic stenosis for which I was ki ndly asked to ____. The patient denies any chest pain or pressure to me. Denies any history of con gestive heart failure, as far as he can tell us. He tells me that about 8 years ago he was told he had valve problems, but has not had any followup since then. PAST MEDICAL HISTORY: History of pulmonary fibrosis, history of dyslipidemia, on statins at home, history of depression, on Zoloft. SOCIAL HISTORY: Patient does not smoke or drink. FAMILY HISTORY: No reported coronary artery disease. ALLERGIES: NO REPORTED ALLERGIES. MEDICATIONS: Per medication reconciliation, personally reviewed. REVIEW OF SYSTEMS: As above mentioned with severe dyspnea on very limited activity. PHYSICAL EXAMINATION: VITAL SIGNS: Temperature 97.8, heart rate of 117, blood pressure of 109/82, respiratory rate of 29, saturating 87%. HEENT: Normocephalic, atraumatic. Appears in mild to moderate respiratory distress, on oxygen. CARDIOVASCULAR: Tachycardic. PULMONARY: With diffuse rhonchi. GENERAL: Tachycardic, systolic ejection murmur radiating to carotids. LUNGS: With diffuse rhonchi. PULSES: Delayed carotid pulses. GASTROINTESTINAL: Soft, nontender. EXTREMITIES: No significant lower extremity edema. NEUROLOGIC: Awake and alert, oriented x3. PSYCHIATRIC: Appears to be calm and very pleasant. DERMATOLOGIC: With no active bleeding signs. LABORATORY DATA: EKG was personally reviewed, shows sinus tachycardia. ST-T abnormalities with ant erior inferior ischemia. LABORATORY: WBC 7.1, hemoglobin 13, platelets of 206. Sodium 133, potassium 5, BUN of 19, creatini ne 0.53, glucose 124 ____. Chest x-ray was also personally reviewed. Radiology report shows calcif ication of thoracic aorta, mild cardiomegaly with bilateral interstitial nodular disease. Echocardi ogram was also personally reviewed, which showed normal LV size and ejection fraction of about 65%. Aortic valve was not well seen, but appeared to be heavily calcified with a mean gradient of 35, pe ak gradient of 63. Calculated aortic valve area was 0.6 cm2. IVC was not well visualized. ASSESSMENT AND PLAN: 1. Hypoxemic ____ respiratory failure, acute on chronic. 2. Severe aortic stenosis. 3. History of hypertension, currently stable. 4. Abnormal EKG secondary to above. 4. Question of mild congestive heart failure. Clinically does not appear to be fluid overloaded at this point. RECOMMENDATIONS: We will continue with the respiratory care which has managed as per pulmonary. Di uresis will be given as needed. Steroid management as per pulmonary team. We will continue to foll ow closely. Oxygen supplement will be continued in the ICU. Dictated By: JIAN RESTREPO MD AV/NTS Conf#: [id number] DID#: [id number] CC: TESSA CAREY MD;*EndCC*
[2017-03-16] MEDS ORDERED: BISACODYL 10 MG SUPP PR PRN (15:30)
[2017-03-16] MEDS ORDERED: CALCIUM CARBONATE 500 MG CHEW TAB PO PRN (15:30)
[2017-03-16] MEDS: DICYCLOMINE 10 MG CAP PO SCH ×2 (18:28→20:34)
[2017-03-16] MEDS: NYSTATIN SUSP 5 ML CUP PO SCH (20:32)
[2017-03-16] MEDS: ASCORBIC ACID 500 MG TAB PO SCH (20:32)
[2017-03-16] MEDS: FLUTICASONE 0.05% 16 GM NAS SPRAY NASAL SCH (20:32)
[2017-03-16] MEDS: SENNA/DOCUSATE NA (8.6MG/50MG) TAB PO SCH ×2 (20:33→20:40)
[2017-03-16] MEDS: DOCUSATE SODIUM 100 MG CAP PO SCH ×2 (20:33→20:39)
[2017-03-16] MEDS: LACTOBACILLUS RHAMNOSUS CAP PO SCH (20:33)
[2017-03-16] MEDS: CALCIUM/VITAMIN D (500/200) TAB PO SCH (20:33)
[2017-03-16] MEDS: ATORVASTATIN 10 MG TAB PO SCH (20:33)
[2017-03-16] MEDS: BUSPIRONE 5 MG TAB PO SCH (20:33)
[2017-03-16] MEDS: GUAIFENESIN/DM (SR) TAB PO SCH (20:34)
[2017-03-16] MEDS: ALPRAZOLAM 0.25 MG TAB PO SCH (22:56)
[2017-03-17] VITALS (12 sets, daily range): BP systolic 101–110; BP diastolic 43–73; PULSE 89–134; RESP 16–26
[2017-03-17] MEDS: ALPRAZOLAM 0.25 MG TAB PO SCH ×3 (06:35→20:33)
[2017-03-17] MEDS: INSULIN ASPART [NOVOLOG] 3 ML PEN SC SCH ×4 (07:55→22:01)
[2017-03-17] MEDS: DICYCLOMINE 10 MG CAP PO SCH ×4 (08:27→20:24)
[2017-03-17] MEDS: FAMOTIDINE 20 MG INJ IV SCH (08:28)
[2017-03-17] MEDS: ASPIRIN 81 MG TAB PO SCH (08:28)
[2017-03-17] MEDS: BUSPIRONE 5 MG TAB PO SCH ×3 (08:29→20:23)
[2017-03-17] MEDS: GUAIFENESIN/DM (SR) TAB PO SCH ×2 (08:30→20:26)
[2017-03-17] MEDS: NYSTATIN SUSP 5 ML CUP PO SCH ×3 (08:30→20:24)
[2017-03-17] MEDS: DOCUSATE SODIUM 100 MG CAP PO SCH ×2 (08:30→20:26)
[2017-03-17] MEDS: LACTOBACILLUS RHAMNOSUS CAP PO SCH ×2 (08:30→20:24)
[2017-03-17] MEDS: CALCIUM/VITAMIN D (500/200) TAB PO SCH ×2 (08:30→20:24)
[2017-03-17] MEDS: ASCORBIC ACID 500 MG TAB PO SCH ×2 (08:31→20:23)
[2017-03-17] MEDS: SENNA/DOCUSATE NA (8.6MG/50MG) TAB PO SCH ×2 (08:31→20:25)
[2017-03-17] MEDS: MULTIVITAMINS THERAPEUTIC TAB PO SCH (08:31)
[2017-03-17] MEDS: SERTRALINE 50 MG TAB PO SCH (08:32)
[2017-03-17] MEDS: CHOLECALCIFEROL 400 UNITS TAB PO SCH (08:32)
[2017-03-17] MEDS: ENOXAPARIN 40 MG/0.4 ML SYG SC SCH (08:49)
[2017-03-17] MEDS: METHYLPRED. NA SUCC 500 MG in DEXTROSE 5% 50 ML IVPB SCH (08:50)
[2017-03-17] MEDS: FLUTICASONE 0.05% 16 GM NAS SPRAY NASAL SCH ×2 (08:50→20:26)
--- NOTE | 2017-03-17 09:59 | PN ---
DATE: 03/17/2017 CARDIOLOGY FOLLOWUP SUBJECTIVE: Discussed with the staff. Rhythm strip was reviewed. The patient continues to complai n of shortness of breath. No chest pain or pressure, does remain tachycardic, also has been hypoxem ic, intermittently down to 80s O2 sat. No palpitation. No chest pain. No bleeding. MEDICATIONS: Reviewed, which include: 1. Aspirin. 2. Multivitamins. 3. Zoloft. 4. Xanax. 5. Vitamins. 6. Lipitor. 7. BuSpar. 8. Docusate. 9. Lovenox 40. 10. Pepcid. 11. Insulin. 12. Albuterol. PHYSICAL EXAMINATION: VITAL SIGNS: Temperature 98, heart rate of 100, blood pressure 110/71, respiratory rate of 24, satu rating 92% on 100% FIO2. HEENT: Normocephalic, atraumatic. GENERAL: Appears in mild to moderate respiratory distress. CARDIOVASCULAR: Tachycardic, systolic ejection murmur radiating to carotids. PULMONARY: With mild rhonchi, diffuse. GASTROINTESTINAL: Soft, nontender. EXTREMITIES: No cyanosis or edema. NEUROLOGIC: Awake and alert. PSYCHIATRIC: Appears to be calm and pleasant. LABORATORY: Most recent glucose 136. ASSESSMENT AND PLAN: 1. Severe aortic stenosis. 2. Hypoxemic hypercapnic respiratory failure. 3. History of documented pulmonary fibrosis. 4. History of hypertension, currently stable. 5. Abnormal EKG as above. 6. Mild congestive heart failure, probably secondary to valvular heart disease. At this point does not appear to be too fluid overloaded. RECOMMENDATIONS: Continue with the respiratory care. Diuresis will be given p.r.n. Statin correct ed will be continued. Will continue to monitor on telemetry. Blood pressure currently remains stab le off any blood pressure medication. Dictated By: JIAN RESTREPO MD AV/AMY Conf#: [id number] DID#: [id number] CC: CHRISTIANA HARDIN AUTHOR'S AGENT;*EndCC*
[2017-03-17 10:00] LABS: ADD SCAN DIFF NO
[2017-03-17 10:04] LABS: ABNORMAL IP MESSAGE 1; BASOPHILS % 0.1 % (0.0-2.0); HEMATOCRIT 37.5 % (42.0-52.0); HEMOGLOBIN 12.3 g/dl (14.0-18.0); LYMPHOCYTES # 0.5 10^3/ul (0.8-2.9); LYMPHOCYTES % 3.3 % (15.0-51.0); MEAN CORPUSCULAR HEMOGLOBIN 31.1 pg (29.0-33.0); MEAN CORPUSCULAR HGB CONC 32.8 g/dl (32.0-37.0); MEAN CORPUSCULAR VOLUME 94.7 fl (82.0-101.0); MONOCYTE # 0.6 10^3/ul (0.3-0.9); MONOCYTES % 3.9 % (0.0-11.0); NEUTROPHIL # 13.6 10^3/ul (1.6-7.5); PLATELET COUNT 192 10^3/UL (140-415); RED BLOOD COUNT 3.96 10^6/ul (4.70-6.10); RED CELL DISTRIBUTION WIDTH 13.2 % (11.5-14.5); WHITE BLOOD COUNT 14.8 10^3/ul (4.8-10.8)
[2017-03-17 10:21] LABS: POTASSIUM 4.3 mmol/L (3.5-5.1)
[2017-03-17 10:23] LABS: CREATININE 0.51 mg/dl (0.61-1.24)
[2017-03-17 10:24] LABS: CALCIUM 8.9 mg/dl (8.4-10.2)
--- NOTE | 2017-03-17 13:02 | CONS ---
Date/Time of Note Date/Time of Note DATE: 03/17/17 TIME: 13:00 Assessment/Plan Assessment/Plan Additional Assessment/Plan Assessment recommendations; next 1. Patient admitted for pulmonary fibrosis exacerbation with significant clinical improvement. On high-dose Solu-Medrol. 2. Some element of CHF, clinically compensated now. 3. Chronic hypoxemia, patient on high flow nasal cannula. Continue current treatment. Patient responding well to current treatment regimen. Steroid tapering starting in 24 hours. Consultation Date/Type/Reason Admit Date/Time March 15, 2017 at 12:55 Type of Consultation: Pulmonary/critical care 24 HR Interval Summary Free Text/Dictation Patient condition is stable. Patient reporting decreased shortness of breath. Denies any coughing chest pain, sputum production. Patient has been transferred out of ICU to telemetry unit. General exam; elderly male, awake alert currently in no distress. Exam/Review of Systems Vital Signs Vitals Vital Signs Date Time Temp Pulse Resp B/P Pulse Ox O2 Delivery O2 Flow Rate FiO2 03/17/17 12:35 113 03/17/17 11:28 98.5 24 109/72 90 03/17/17 11:15 100 03/16/17 20:00 High Flow 03/15/17 17:26 10.0 Intake and Output 03/16/17 03/16/17 03/17/17 15:00 23:00 07:00 Intake Total 530 ml 560 ml 200 ml Output Total 200 ml 150 ml 350 ml Balance 330 ml 410 ml -150 ml Exam HEENT exam; supple neck, no JVD. No lymphadenopathy. Midline trachea. No thyromegaly. Patient has upper dentures and multiple lower jaw carious teeth. Has bilateral intraocular lens implants. Chest examination; diffuse bilateral crackles more pronounced in overdose. Upper lobes are fairly clear. S1-S2 audible, no murmurs. Regular rhythm. Abdomen examination; soft, nondistended. No organomegaly. Bowel sounds audible. Extremity exam; no peripheral edema. 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 Results Result Diagram: 03/17/1755 03/17/17 0955 Results 24 hrs Laboratory Tests Test 03/16/17 17:31 03/16/17 20:44 03/17/17 08:24 03/17/17 09:55 Bedside Glucose 127 136 100 White Blood Count 14.8 #H Red Blood Count 3.96 L Hemoglobin 12.3 L Hematocrit 37.5 L Mean Corpuscular Volume 94.7 Mean Corpuscular Hemoglobin 31.1 Mean Corpuscular Hemoglobin Concent 32.8 Red Cell Distribution Width 13.2 Platelet Count 192 Mean Platelet Volume 9.0 Neutrophils % 92.0 H Lymphocytes % 3.3 L Monocytes % 3.9 Eosinophils % 0.0 Basophils % 0.1 Nucleated Red Blood Cells % 0.0 Neutrophils # 13.6 H Lymphocytes # 0.5 L Monocytes # 0.6 Eosinophils # 0.0 Basophils # 0.0 Nucleated Red Blood Cells # 0.0 Sodium Level 133 L Potassium Level 4.3 Chloride Level 99 Carbon Dioxide Level 31 Anion Gap 7 L Blood Urea Nitrogen 23 H Creatinine 0.51 L Glucose Level 142 Calcium Level 8.9 Test 03/17/17 11:48 Bedside Glucose 93 Medications Medications Current Medications Ondansetron HCl (Zofran Inj) 4 mg Q6H PRN IV NAUSEA AND/OR VOMITING; Start at 13:30 Acetaminophen (Tylenol Liquid) 650 mg Q6H PRN PO PAIN LEVEL 1-3 OR FEVER; Start 03/15/17 at 13:30 Morphine Sulfate (morphine) 2 mg Q4H PRN IV PAIN LEVEL 7-10; Start 03/15/17 at 13:30 Famotidine 20 mg 20 mg Q12 IV Last administered on 03/17/17 08:28; Admin Dose 20 MG; Start 03/15/17 at 21:00 Methylprednisolone Sodium Succinate/ Dextrose (Solu-Medrol/D5W) 50 ml @ 100 mls /hr DAILY IVPB Last administered on 03/17/17 08:50; Admin Dose 100 MLS/HR; Start 03/15/17 at 15:30; Stop 03/18/17 at 15:29 Enoxaparin Sodium (Lovenox) 40 mg DAILY SC Last administered on 03/17/17 08:49 ; Admin Dose 40 MG; Start 03/16/17 at 09:00 Miscellaneous Information 1 ea NOTE XX ; Start 03/15/17 at 16:00 Glucose (Glutose) 15 gm Q15M PRN PO DECREASED GLUCOSE; Start 03/15/17 at 16:00 Glucose (Glutose) 22.5 gm Q15M PRN PO DECREASED GLUCOSE; Start 03/15/17 at 16: 00 Dextrose (D50w Syringe) 25 ml Q15M PRN IV DECREASED GLUCOSE; Start 03/15/17 at 16:00 Dextrose (D50w Syringe) 50 ml Q15M PRN IV DECREASED GLUCOSE; Start 03/15/17 at 16:00 Glucagon (Glucagen) 1 mg Q15M PRN IM DECREASED GLUCOSE; Start 03/15/17 at 16:00 Glucose (Glutose) 15 gm Q15M PRN BUCCAL DECREASED GLUCOSE; Start 03/15/17 at 16 :00 Miscellaneous Information (Pending Santyl Order For Wound Care) This patient meade... PRN PRN XX WOUND CARE; Start 03/15/17 at 19:30 Ascorbic Acid (Vitamin C) 500 mg BID PO Last administered on 03/17/17 08:31; Admin Dose 500 MG; Start 03/16/17 at 21:00 Aspirin (Aspirin) 81 mg DAILY PO Last administered on 03/17/17 08:28; Admin Dose 81 MG; Start 03/17/17 at 09:00 Atorvastatin Calcium (Lipitor) 10 mg HS PO Last administered on 03/16/17 20:33 ; Admin Dose 10 MG; Start 03/16/17 at 21:00 Bisacodyl (Dulcolax Supp) 10 mg DAILY PRN [place] CONSTIPATION; Start 03/16/17 at 15 :30 Buspirone HCl (Buspar) 7.5 mg TID PO Last administered on 03/17/17 08:29; Admin Dose 7.5 MG; Start 03/16/17 at 21:00 Calcium Carbonate (Tums) 1,000 mg Q4H PRN PO indigestion; Start 03/16/17 at 15: 30 Calcium/Vitamin D (Oyster Shell/ Vit-D (500/200)) 1 tab BID PO Last administered on 03/17/17 08:30; Admin Dose 1 TAB; Start 03/16/17 at 21:00 Clonidine (Catapres) 0.1 mg Q6H PRN PO ELEVATED SYSTOLIC BP; Start 03/16/17 at 15:30 Docusate Sodium (Colace) 200 mg BID PO Last administered on 03/17/17 08:30; Admin Dose 200 MG; Start 03/16/17 at 21:00 Fluticasone Propionate (Flonase 0.05% Nasal) 2 spray BID NASAL Last administered on 03/17/17 08:50; Admin Dose 2 SPRAY; Start 03/16/17 at 21:00 Guaifenesin/ Dextromethorphan (Mucinex Dm) 1 tab BID PO Last administered on 08:30; Admin Dose 1 TAB; Start 03/16/17 at 21:00 Lactobacillus Acidophilus/ Rhamnosus (Culturelle) 1 cap BID PO Last administered on 03/17/17 08:30; Admin Dose 1 CAP; Start 03/16/17 at 21:00 Multivitamins Therapeutic (Theragran) 1 tab DAILY PO Last administered on 08:31; Admin Dose 1 TAB; Start 03/17/17 at 09:00 Nystatin (Nystatin Susp) 5 ml TID PO Last administered on 03/17/17 08:30; Admin Dose 5 ML; Start 03/16/17 at 21:00 Senna/Docusate Sodium (Senokot-S) 1 tab BID PO Last administered on 03/17/17 08:31; Admin Dose 1 TAB; Start 03/16/17 at 21:00 Sertraline HCl (Zoloft) 25 mg DAILY PO Last administered on 03/17/17 08:32; Admin Dose 25 MG; Start 03/17/17 at 09:00 Cholecalciferol (Vitamin D) 1,200 units DAILY PO Last administered on 08:32; Admin Dose 1,200 UNITS; Start 03/17/17 at 09:00 Alprazolam (Xanax) 0.25 mg Q8 PO Last administered on 03/17/17 06:35; Admin Dose 0.25 MG; Start 03/16/17 at 22:00 POLO HOOKS March 17, 2017 13:02
[2017-03-17] MEDS: ACETAMINOPHEN 650MG/20.3ML CUP PO PRN ×2 (14:48→20:33)
--- NOTE | 2017-03-17 17:29 | PN ---
Date/Time of Note Date/Time of Note DATE: 03/17/17 TIME: 17:25 Assessment/Plan VTE Prophylaxis VTE Prophylaxis Intervention: SCD's Lines/[facility]ters [facility] [facility] Urinary Cath still in place: No Assessment/Plan Chief Complaint/Hosp Course Patient is comfortable on Vapotherm, with tachycardia, complains of headache which is not relieved by Tylenol. ASSESSMENT AND PLAN: 1. Hypoxemic respiratory insufficiency secondary to acute exacerbation of idiopathic pulmonary fibrosis. Dr. Santamaria is following in pulmonology consultation. Continue Vapotherm via nasal cannula. Continue steroids. 2. Severe aortic stenosis per echocardiogram. Dr. Preeira is following patient in cardiology consultation. 3. Gastroesophageal reflux disease. Continue Protonix. 4. Anxiety. Continue Xanax p.r.n. Further recommendations based on clinical course. Plan of care discussed with Dr. Cobian. Problems: Exam/Review of Systems Vital Signs Vitals Vital Signs Date Time Temp Pulse Resp B/P Pulse Ox O2 Delivery O2 Flow Rate FiO2 03/17/17 16:41 106 03/17/17 15:12 98.2 26 101/43 86 03/17/17 14:57 100 03/16/17 20:00 High Flow 03/15/17 17:26 10.0 Intake and Output 03/16/17 03/16/17 03/17/17 15:00 23:00 07:00 Intake Total 530 ml 560 ml 200 ml Output Total 200 ml 150 ml 350 ml Balance 330 ml 410 ml -150 ml Exam Constitutional: alert, oriented Head: atraumatic, normocephalic Neck: supple Respiratory: diminished breath sounds Cardiovascular: nl pulses Gastrointestinal: non-tender, soft Musculoskeletal: nl extremities to inspection Extremities: normal pulses Results Result Diagram: 03/17/17 0955 03/17/17 0955 Results 24 hrs Laboratory Tests Test 03/16/17 17:31 03/16/17 20:44 03/17/17 08:24 03/17/17 09:55 Bedside Glucose 127 136 100 White Blood Count 14.8 #H Red Blood Count 3.96 L Hemoglobin 12.3 L Hematocrit 37.5 L Mean Corpuscular Volume 94.7 Mean Corpuscular Hemoglobin 31.1 Mean Corpuscular Hemoglobin Concent 32.8 Red Cell Distribution Width 13.2 Platelet Count 192 Mean Platelet Volume 9.0 Neutrophils % 92.0 H Lymphocytes % 3.3 L Monocytes % 3.9 Eosinophils % 0.0 Basophils % 0.1 Nucleated Red Blood Cells % 0.0 Neutrophils # 13.6 H Lymphocytes # 0.5 L Monocytes # 0.6 Eosinophils # 0.0 Basophils # 0.0 Nucleated Red Blood Cells # 0.0 Sodium Level 133 L Potassium Level 4.3 Chloride Level 99 Carbon Dioxide Level 31 Anion Gap 7 L Blood Urea Nitrogen 23 H Creatinine 0.51 L Glucose Level 142 Calcium Level 8.9 Test 03/17/17 11:48 03/17/17 17:14 Bedside Glucose 93 124 Medications Medications Current Medications Ondansetron HCl (Zofran Inj) 4 mg Q6H PRN IV NAUSEA AND/OR VOMITING; Start at 13:30 Acetaminophen (Tylenol Liquid) 650 mg Q6H PRN PO PAIN LEVEL 1-3 OR FEVER Last administered on 03/17/17 14:48; Admin Dose 650 MG; Start 03/15/17 at 13:30 Morphine Sulfate 2 mg 2 mg Q4H PRN IV PAIN LEVEL 7-10; Start 03/15/17 at 13:30 Methylprednisolone Sodium Succinate/ Dextrose (Solu-Medrol/D5W) 50 ml @ 100 mls /hr DAILY IVPB Last administered on 03/17/17 08:50; Admin Dose 100 MLS/HR; Start 03/15/17 at 15:30; Stop 03/18/17 at 15:29 Enoxaparin Sodium (Lovenox) 40 mg DAILY SC Last administered on 03/17/17 08:49 ; Admin Dose 40 MG; Start 03/16/17 at 09:00 Miscellaneous Information 1 ea NOTE XX ; Start 03/15/17 at 16:00 Glucose (Glutose) 15 gm Q15M PRN PO DECREASED GLUCOSE; Start 03/15/17 at 16:00 Glucose (Glutose) 22.5 gm Q15M PRN PO DECREASED GLUCOSE; Start 03/15/17 at 16: 00 Dextrose (D50w Syringe) 25 ml Q15M PRN IV DECREASED GLUCOSE; Start 03/15/17 at 16:00 Dextrose (D50w Syringe) 50 ml Q15M PRN IV DECREASED GLUCOSE; Start 03/15/17 at 16:00 Glucagon (Glucagen) 1 mg Q15M PRN IM DECREASED GLUCOSE; Start 03/15/17 at 16:00 Glucose (Glutose) 15 gm Q15M PRN BUCCAL DECREASED GLUCOSE; Start 03/15/17 at 16 :00 [facility] This patient meade... PRN PRN XX WOUND CARE; Start 03/15/17 at 19:30 Ascorbic Acid (Vitamin C) 500 mg BID PO Last administered on 03/17/17 08:31; Admin Dose 500 MG; Start 03/16/17 at 21:00 Aspirin (Aspirin) 81 mg DAILY PO Last administered on 03/17/17 08:28; Admin Dose 81 MG; Start 03/17/17 at 09:00 Atorvastatin Calcium (Lipitor) 10 mg HS PO Last administered on 03/16/17 20:33 ; Admin Dose 10 MG; Start 03/16/17 at 21:00 Bisacodyl (Dulcolax Supp) 10 mg DAILY PRN [place] CONSTIPATION; Start 03/16/17 at 15 :30 Buspirone HCl (Buspar) 7.5 mg TID PO Last administered on 03/17/17 13:27; Admin Dose 7.5 MG; Start 03/16/17 at 21:00 Calcium Carbonate (Tums) 1,000 mg Q4H PRN PO indigestion; Start 03/16/17 at 15: 30 Calcium/Vitamin D (Oyster Shell/ Vit-D (500/200)) 1 tab BID PO Last administered on 03/17/17 08:30; Admin Dose 1 TAB; Start 03/16/17 at 21:00 Clonidine (Catapres) 0.1 mg Q6H PRN PO ELEVATED SYSTOLIC BP; Start 03/16/17 at 15:30 Docusate Sodium (Colace) 200 mg BID PO Last administered on 03/17/17 08:30; Admin Dose 200 MG; Start 03/16/17 at 21:00 Fluticasone Propionate (Flonase 0.05% Nasal) 2 spray BID NASAL Last administered on 03/17/17 08:50; Admin Dose 2 SPRAY; Start 03/16/17 at 21:00 Guaifenesin/ Dextromethorphan (Mucinex Dm) 1 tab BID PO Last administered on 08:30; Admin Dose 1 TAB; Start 03/16/17 at 21:00 Lactobacillus Acidophilus/ Rhamnosus (Culturelle) 1 cap BID PO Last administered on 03/17/17 08:30; Admin Dose 1 CAP; Start 03/16/17 at 21:00 Multivitamins Therapeutic (Theragran) 1 tab DAILY PO Last administered on 08:31; Admin Dose 1 TAB; Start 03/17/17 at 09:00 Nystatin (Nystatin Susp) 5 ml TID PO Last administered on 03/17/17 13:27; Admin Dose 5 ML; Start 03/16/17 at 21:00 Senna/Docusate Sodium (Senokot-S) 1 tab BID PO Last administered on 03/17/17 08:31; Admin Dose 1 TAB; Start 03/16/17 at 21:00 Sertraline HCl (Zoloft) 25 mg DAILY PO Last administered on 03/17/17 08:32; Admin Dose 25 MG; Start 03/17/17 at 09:00 Cholecalciferol (Vitamin D) 1,200 units DAILY PO Last administered on 08:32; Admin Dose 1,200 UNITS; Start 03/17/17 at 09:00 Alprazolam (Xanax) 0.25 mg Q8 PO Last administered on 03/17/17 13:27; Admin Dose 0.25 MG; Start 03/16/17 at 22:00 Famotidine (Pepcid) 20 mg Q12 PO ; Start 03/17/17 at 21:00 CHRISTIANA HARDIN March 17, 2017 17:28
[2017-03-17] MEDS: HYDROCODONE/APAP (5/325) TAB PO PRN (17:46)
[2017-03-17] MEDS: ATORVASTATIN 10 MG TAB PO SCH (20:24)
[2017-03-17] MEDS: FAMOTIDINE 20 MG TAB PO SCH (20:24)
[2017-03-18] VITALS (12 sets, daily range): BP systolic 92–148; BP diastolic 63–76; PULSE 82–107; RESP 15–18
[2017-03-18] MEDS: ALPRAZOLAM 0.25 MG TAB PO SCH ×3 (06:20→20:35)
[2017-03-18 06:49] LABS: ADD SCAN DIFF NO
[2017-03-18 07:04] LABS: BASOPHILS % 0.1 % (0.0-2.0); HEMATOCRIT 38.6 % (42.0-52.0); HEMOGLOBIN 12.7 g/dl (14.0-18.0); LYMPHOCYTES # 0.7 10^3/ul (0.8-2.9); LYMPHOCYTES % 6.9 % (15.0-51.0); MEAN CORPUSCULAR HEMOGLOBIN 31.4 pg (29.0-33.0); MEAN CORPUSCULAR HGB CONC 32.9 g/dl (32.0-37.0); MEAN CORPUSCULAR VOLUME 95.3 fl (82.0-101.0); MEAN PLATELET VOLUME 9.3 fl (7.4-10.4); MONOCYTE # 0.5 10^3/ul (0.3-0.9); MONOCYTES % 4.9 % (0.0-11.0); NEUTROPHIL # 9.2 10^3/ul (1.6-7.5); NEUTROPHILS % 86.7 % (39.0-77.0); PLATELET COUNT 204 10^3/UL (140-415); RED BLOOD COUNT 4.05 10^6/ul (4.70-6.10); RED CELL DISTRIBUTION WIDTH 13.1 % (11.5-14.5); WHITE BLOOD COUNT 10.6 10^3/ul (4.8-10.8)
[2017-03-18 07:27] LABS: CREATININE 0.51 mg/dl (0.61-1.24); POTASSIUM 4.6 mmol/L (3.5-5.1)
[2017-03-18] MEDS: INSULIN ASPART [NOVOLOG] 3 ML PEN SC SCH ×4 (07:55→20:38)
[2017-03-18] MEDS: DICYCLOMINE 10 MG CAP PO SCH ×4 (08:26→20:29)
[2017-03-18] MEDS: METHYLPRED. NA SUCC 500 MG in DEXTROSE 5% 50 ML IVPB SCH (08:27)
[2017-03-18] MEDS: ASPIRIN 81 MG TAB PO SCH (08:27)
[2017-03-18] MEDS: FLUTICASONE 0.05% 16 GM NAS SPRAY NASAL SCH ×2 (08:27→20:35)
[2017-03-18] MEDS: DOCUSATE SODIUM 100 MG CAP PO SCH ×2 (08:28→20:30)
[2017-03-18] MEDS: BUSPIRONE 5 MG TAB PO SCH ×3 (08:28→20:31)
[2017-03-18] MEDS: CALCIUM/VITAMIN D (500/200) TAB PO SCH ×2 (08:29→20:29)
[2017-03-18] MEDS: LACTOBACILLUS RHAMNOSUS CAP PO SCH ×2 (08:29→20:29)
[2017-03-18] MEDS: GUAIFENESIN/DM (SR) TAB PO SCH ×2 (08:29→20:30)
[2017-03-18] MEDS: FAMOTIDINE 20 MG TAB PO SCH ×2 (08:29→20:31)
[2017-03-18] MEDS: NYSTATIN SUSP 5 ML CUP PO SCH ×3 (08:29→20:30)
[2017-03-18] MEDS: MULTIVITAMINS THERAPEUTIC TAB PO SCH (08:30)
[2017-03-18] MEDS: SENNA/DOCUSATE NA (8.6MG/50MG) TAB PO SCH ×2 (08:30→20:29)
[2017-03-18] MEDS: ASCORBIC ACID 500 MG TAB PO SCH ×2 (08:30→20:31)
[2017-03-18] MEDS: CHOLECALCIFEROL 400 UNITS TAB PO SCH (08:31)
[2017-03-18] MEDS: SERTRALINE 50 MG TAB PO SCH (08:31)
[2017-03-18] MEDS: ENOXAPARIN 40 MG/0.4 ML SYG SC SCH (08:52)
--- NOTE | 2017-03-18 09:05 | PN ---
DATE: 03/18/2017 CARDIOLOGY FOLLOWUP SUBJECTIVE: Discussed with the staff. Rhythm strip was reviewed. The patient remains in sinus rhy thm. Heart rate has improved. Less tachycardic. His breathing has improved as well, appeared to b e less short of breath and distressed. MEDICATIONS: Reviewed, as per medication reconciliation, was personally reviewed. PHYSICAL EXAMINATION: VITAL SIGNS: Temperature 98.2, heart rate of 98, blood pressure 109/67, respiratory rate of 18, sat urating 98%. HEENT: Normocephalic, atraumatic. Appears in mild respiratory distress. CARDIOVASCULAR: Regular rate and rhythm, a systolic ejection murmur. PULMONARY: Anteriorly with no wheezes with mild diffuse rhonchi. GASTROINTESTINAL: Soft, nontender. No rebound or guarding. EXTREMITIES: With no significant lower extremity edema. No cyanosis. NEUROLOGIC: Awake, alert and oriented x3. PSYCHIATRIC: Appears to be calm and very pleasant. DERMATOLOGIC: With multiple ecchymoses, but no active bleeding site. LABORATORY: WBC of 10.6, hemoglobin 12.7, platelets of 204. Sodium 134, potassium 4.6, BUN of 23, creatinine 0.51, glucose 103. ASSESSMENT AND PLAN: 1. Aortic stenosis. Appears to be severe based on the echo. 2. Congestive heart failure. Appears to be stable, mostly related to above, but at this point does not appear to be fluid overloaded. 3. Severe hypoxemic and hypercapneic respiratory failure. 4. History of pulmonary fibrosis. 5. Hypertension, under good control. 6. Abnormal EKG, secondary to above. RECOMMENDATIONS: Continue with the respiratory care. Diuresis will be given on an needed basis. S tatins will be continued as tolerated. Will continue to monitor on telemetry. Dictated By: JIAN RESTREPO MD AV/AMY Conf#: [id number] DID#: [id number] CC: DE BENSON MD;*End*
[2017-03-18] MEDS: ALBUTEROL/IPRATROPIUM (NEB) 3 ML AMP NEB PRN (12:00)
--- NOTE | 2017-03-18 12:34 | CONS ---
Date/Time of Note Date/Time of Note DATE: 03/18/17 TIME: 12:32 Assessment/Plan Assessment/Plan Additional Assessment/Plan Assessment recommendations; next 1. Patient admitted for pulmonary fibrosis exacerbation with significant clinical improvement. Currently on high-dose Solu-Medrol. 2. Mild CHF, clinically compensated. 3. Chronic hypoxemia. Discontinue Solu-Medrol at current dosing. Start Solu-Medrol at 40 mg IV every 6 hours. Continue current supportive measures. Overall prognosis remains poor. Consultation Date/Type/Reason Admit Date/Time March 15, 2017 at 12:55 Type of Consultation: Pulmonary/critical care 24 HR Interval Summary Free Text/Dictation Patient condition is stable. Denies any chest pain, complains of very scant cough. Denies any wheezing. Any hemoptysis. Any sputum production. Shortness of breath is continually improving. General exam; elderly male, awake alert currently in no distress. Exam/Review of Systems Vital Signs Vitals Vital Signs Date Time Temp Pulse Resp B/P Pulse Ox O2 Delivery O2 Flow Rate FiO2 03/18/17 12:01 96 26 91 100 03/18/17 11:50 97.2 107/72 03/16/17 20:00 High Flow 03/15/17 17:26 10.0 Intake and Output 03/17/17 03/17/17 03/18/17 15:00 23:00 07:00 Intake Total 50 ml 800 ml 250 ml Output Total 600 ml 480 ml Balance 50 ml 200 ml -230 ml Exam HEENT exam; supple neck, no JVD. No lymphadenopathy. Midline trachea. No thyromegaly. Patient has bilateral intraocular lens implants. He wears upper dentures. Patient has a multiple carious teeth and lower jaw. Chest examined; upper lobes are clear with bibasilar crackles. S1-S2 audible, no murmurs. Regular rhythm. Abdomen examination; soft, nontender. No organomegaly. Bowel sounds audible. Extremity examination; no peripheral edema. No clubbing. Pulses 1+ bilaterally. PO[employer] examination; no focal deficit. Results Result Diagram: 03/18/17 0630 03/18/17 0630 Results 24 hrs Laboratory Tests Test 03/17/17 17:14 03/17/17 20:28 03/18/17 06:30 03/18/17 07:48 Bedside Glucose 124 194 112 White Blood Count 10.6 # Red Blood Count 4.05 L Hemoglobin 12.7 L Hematocrit 38.6 L Mean Corpuscular Volume 95.3 Mean Corpuscular Hemoglobin 31.4 Mean Corpuscular Hemoglobin Concent 32.9 Red Cell Distribution Width 13.1 Platelet Count 204 Mean Platelet Volume 9.3 Neutrophils % 86.7 H Lymphocytes % 6.9 L Monocytes % 4.9 Eosinophils % 0.0 Basophils % 0.1 Nucleated Red Blood Cells % 0.0 Neutrophils # 9.2 H Lymphocytes # 0.7 L Monocytes # 0.5 Eosinophils # 0.0 Basophils # 0.0 Nucleated Red Blood Cells # 0.0 Sodium Level 134 L Potassium Level 4.6 Chloride Level 95 L Carbon Dioxide Level 36 H Anion Gap 8 Blood Urea Nitrogen 23 H Creatinine 0.51 L Glucose Level 103 Calcium Level 9.0 Test 03/18/17 11:37 Bedside Glucose 118 Medications Medications Current Medications Ondansetron HCl (Zofran Inj) 4 mg Q6H PRN IV NAUSEA AND/OR VOMITING; Start at 13:30 Acetaminophen (Tylenol Liquid) 650 mg Q6H PRN PO PAIN LEVEL 1-3 OR FEVER Last administered on 03/17/17 20:33; Admin Dose 650 MG; Start 03/15/17 at 13:30 Morphine Sulfate 2 mg 2 mg Q4H PRN IV PAIN LEVEL 7-10; Start 03/15/17 at 13:30 Methylprednisolone Sodium Succinate/ Dextrose (Solu-Medrol/D5W) 50 ml @ 100 mls /hr DAILY IVPB Last administered on 03/18/17 08:27; Admin Dose 100 MLS/HR; Start 03/15/17 at 15:30; Stop 03/18/17 at 15:29 Enoxaparin Sodium (Lovenox) 40 mg DAILY SC Last administered on 03/18/17 08:52 ; Admin Dose 40 MG; Start 03/16/17 at 09:00 Miscellaneous Information 1 ea NOTE XX ; Start 03/15/17 at 16:00 Glucose (Glutose) 15 gm Q15M PRN PO DECREASED GLUCOSE; Start 03/15/17 at 16:00 Glucose (Glutose) 22.5 gm Q15M PRN PO DECREASED GLUCOSE; Start 03/15/17 at 16: 00 Dextrose (D50w Syringe) 25 ml Q15M PRN IV DECREASED GLUCOSE; Start 03/15/17 at 16:00 Dextrose (D50w Syringe) 50 ml Q15M PRN IV DECREASED GLUCOSE; Start 03/15/17 at 16:00 Glucagon (Glucagen) 1 mg Q15M PRN IM DECREASED GLUCOSE; Start 03/15/17 at 16:00 Glucose (Glutose) 15 gm Q15M PRN BUCCAL DECREASED GLUCOSE; Start 03/15/17 at 16 :00 [facility]iscellaneous Information [facility] This patient meade... PRN PRN XX WOUND CARE; Start 03/15/17 at 19:30 Ascorbic Acid (Vitamin C) 500 mg BID PO Last administered on 03/18/17 08:30; Admin Dose 500 MG; Start 03/16/17 at 21:00 Aspirin (Aspirin) 81 mg DAILY PO Last administered on 03/18/17 08:27; Admin Dose 81 MG; Start 03/17/17 at 09:00 Atorvastatin Calcium (Lipitor) 10 mg HS PO Last administered on 03/17/17 20:24 ; Admin Dose 10 MG; Start 03/16/17 at 21:00 Bisacodyl (Dulcolax Supp) 10 mg DAILY PRN [place] CONSTIPATION; Start 03/16/17 at 15 :30 Buspirone HCl (Buspar) 7.5 mg TID PO Last administered on 03/18/17 12:12; Admin Dose 7.5 MG; Start 03/16/17 at 21:00 Calcium Carbonate (Tums) 1,000 mg Q4H PRN PO indigestion; Start 03/16/17 at 15: 30 Calcium/Vitamin D (Oyster Shell/ Vit-D (500/200)) 1 tab BID PO Last administered on 03/18/17 08:29; Admin Dose 1 TAB; Start 03/16/17 at 21:00 Clonidine (Catapres) 0.1 mg Q6H PRN PO ELEVATED SYSTOLIC BP; Start 03/16/17 at 15:30 Docusate Sodium (Colace) 200 mg BID PO Last administered on 03/17/17 08:30; Admin Dose 200 MG; Start 03/16/17 at 21:00 Fluticasone Propionate (Flonase 0.05% Nasal) 2 spray BID NASAL Last administered on 03/18/17 08:27; Admin Dose 2 SPRAY; Start 03/16/17 at 21:00 Guaifenesin/ Dextromethorphan (Mucinex Dm) 1 tab BID PO Last administered on 08:29; Admin Dose 1 TAB; Start 03/16/17 at 21:00 Lactobacillus Acidophilus/ Rhamnosus (Culturelle) 1 cap BID PO Last administered on 03/18/17 08:29; Admin Dose 1 CAP; Start 03/16/17 at 21:00 Multivitamins Therapeutic (Theragran) 1 tab DAILY PO Last administered on 08:30; Admin Dose 1 TAB; Start 03/17/17 at 09:00 Nystatin (Nystatin Susp) 5 ml TID PO Last administered on 03/18/17 12:12; Admin Dose 5 ML; Start 03/16/17 at 21:00 Senna/Docusate Sodium (Senokot-S) 1 tab BID PO Last administered on 03/17/17 08:31; Admin Dose 1 TAB; Start 03/16/17 at 21:00 Sertraline HCl (Zoloft) 25 mg DAILY PO Last administered on 03/18/17 08:31; Admin Dose 25 MG; Start 03/17/17 at 09:00 Cholecalciferol (Vitamin D) 1,200 units DAILY PO Last administered on 03/18/17 08:31; Admin Dose 1,200 UNITS; Start 03/17/17 at 09:00 Alprazolam (Xanax) 0.25 mg Q8 PO Last administered on 03/18/17 06:20; Admin Dose 0.25 MG; Start 03/16/17 at 22:00 Famotidine (Pepcid) 20 mg Q12 PO Last administered on 03/18/17 08:29; Admin Dose 20 MG; Start 03/17/17 at 21:00 Acetaminophen/ Hydrocodone Bitart ([place] (5/325)) 1 tab Q4H PRN PO PAIN LEVEL 4 -6 Last administered on 03/17/17 17:46; Admin Dose 1 TAB; Start 03/17/17 at 17: 30 POLO HOOKS Mar 18, 2017 12:34
--- NOTE | 2017-03-18 15:08 | PN ---
Date/Time of Note Date/Time of Note DATE: 03/18/17 TIME: 15:02 Assessment/Plan VTE Prophylaxis VTE Prophylaxis Intervention: other Lines/Catheters IV [facility] Type ([facility] Urinary Cath still in place: No Assessment/Plan Assessment/Plan 1. Hypoxemic respiratory insufficiency secondary to acute exacerbation of idiopathic pulmonary fibrosis. Dr. Santamaria is following in pulmonology consultation. Continue Vapotherm via nasal cannula. Continue steroids. 2. Severe aortic stenosis per echocardiogram. Dr. Pereira is following patient in cardiology consultation. 3. 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 Gastroesophageal reflux disease. Continue Protonix. 4. Anxiety. Continue Xanax p.r.n. Further recommendations based on clinical course. Plan of care discussed with Dr. Cobian. Subjective 24 Hr Interval Summary Free Text/Dictation alert, desats on gladys flow 35% o2 - arnulfo Santamaria is following.stated he has hx of Deviated Nasal Septum. Also hx of vocal cord Palsy- will get Dr Aguero- notified. dw staff Eyes: no complaints ENT: other (Deviated Nasal Septum. Also hx of vocal cord Palsy-) Respiratory: shortness of breath Cardiovascular: no complaints Gastrointestinal: no complaints Genitourinary: no complaints Musculoskeletal: no complaints Exam/Review of Systems Vital Signs Vitals Vital Signs Date Time Temp Pulse Resp B/P Pulse Ox O2 Delivery O2 Flow Rate FiO2 03/18/17 13:21 88 100 03/18/17 12:01 96 26 03/18/17 11:50 97.2 107/72 03/16/17 20:00 High Flow 03/15/17 17:26 10.0 Intake and Output 03/17/17 03/17/17 03/18/17 15:00 23:00 07:00 Intake Total 50 ml 800 ml 250 ml Output Total 600 ml 480 ml Balance 50 ml 200 ml -230 ml Exam Constitutional: alert ENMT: nl external ears & nose Neck: non-tender, supple Respiratory: other, wheezing Cardiovascular: nl pulses, regular rate and rhythm Gastrointestinal: non-tender, soft Musculoskeletal: nl extremities to inspection Extremities: normal pulses Neurological: nl mental status, nl speech Skin: nl turgor Lymph: nontender Results Result Diagram: 03/18/1730 6/1/17 0630 Results 24 hrs Laboratory Tests Test 03/17/17 17:14 03/17/17 20:28 03/18/17 06:30 03/18/17 07:48 Bedside Glucose 124 194 112 White Blood Count 10.6 # Red Blood Count 4.05 L Hemoglobin 12.7 L Hematocrit 38.6 L Mean Corpuscular Volume 95.3 Mean Corpuscular Hemoglobin 31.4 Mean Corpuscular Hemoglobin Concent 32.9 Red Cell Distribution Width 13.1 Platelet Count 204 Mean Platelet Volume 9.3 Neutrophils % 86.7 H Lymphocytes % 6.9 L Monocytes % 4.9 Eosinophils % 0.0 Basophils % 0.1 Nucleated Red Blood Cells % 0.0 Neutrophils # 9.2 H Lymphocytes # 0.7 L Monocytes # 0.5 Eosinophils # 0.0 Basophils # 0.0 Nucleated Red Blood Cells # 0.0 Sodium Level 134 L Potassium Level 4.6 Chloride Level 95 L Carbon Dioxide Level 36 H Anion Gap 8 Blood Urea Nitrogen 23 H Creatinine 0.51 L Glucose Level 103 Calcium Level 9.0 Test 03/18/17 11:37 Bedside Glucose 118 Medications Medications Current Medications Ondansetron HCl (Zofran Inj) 4 mg Q6H PRN IV NAUSEA AND/OR VOMITING; Start at 13:30 Acetaminophen (Tylenol Liquid) 650 mg Q6H PRN PO PAIN LEVEL 1-3 OR FEVER Last administered on 03/17/17 20:33; Admin Dose 650 MG; Start 03/15/17 at 13:30 Morphine Sulfate (morphine) 2 mg Q4H PRN IV PAIN LEVEL 7-10; Start 03/15/17 at 13:30 Enoxaparin Sodium (Lovenox) 40 mg DAILY SC Last administered on 03/18/17 08:52 ; Admin Dose 40 MG; Start 03/16/17 at 09:00 Miscellaneous Information 1 ea NOTE XX ; Start 03/15/17 at 16:00 Glucose (Glutose) 15 gm Q15M PRN PO DECREASED GLUCOSE; Start 03/15/17 at 16:00 Glucose (Glutose) 22.5 gm Q15M PRN PO DECREASED GLUCOSE; Start 03/15/17 at 16: 00 Dextrose (D50w Syringe) 25 ml Q15M PRN IV DECREASED GLUCOSE; Start 03/15/17 at 16:00 Dextrose (D50w Syringe) 50 ml Q15M PRN IV DECREASED GLUCOSE; Start 03/15/17 at 16:00 Glucagon (Glucagen) 1 mg Q15M PRN IM DECREASED GLUCOSE; Start 03/15/17 at 16:00 Glucose (Glutose) 15 gm Q15M PRN BUCCAL DECREASED GLUCOSE; Start 03/15/17 at 16 :00 Miscellaneous Information ([facility] This patient meade... PRN PRN XX WOUND CARE; Start 03/15/17 at 19:30 Ascorbic Acid (Vitamin C) 500 mg BID PO Last administered on 03/18/17 08:30; Admin Dose 500 MG; Start 03/16/17 at 21:00 Aspirin (Aspirin) 81 mg DAILY PO Last administered on 03/18/17 08:27; Admin Dose 81 MG; Start 03/17/17 at 09:00 Atorvastatin Calcium (Lipitor) 10 mg HS PO Last administered on 03/17/17 20:24 ; Admin Dose 10 MG; Start 03/16/17 at 21:00 Bisacodyl (Dulcolax Supp) 10 mg DAILY PRN [place] CONSTIPATION; Start 03/16/17 at 15 :30 Buspirone HCl (Buspar) 7.5 mg TID PO Last administered on 03/18/17 12:12; Admin Dose 7.5 MG; Start 03/16/17 at 21:00 Calcium Carbonate (Tums) 1,000 mg Q4H PRN PO indigestion; Start 03/16/17 at 15: 30 Calcium/Vitamin D (Oyster Shell/ Vit-D (500/200)) 1 tab BID PO Last administered on 03/18/17 08:29; Admin Dose 1 TAB; Start 03/16/17 at 21:00 Clonidine (Catapres) 0.1 mg Q6H PRN PO ELEVATED SYSTOLIC BP; Start 03/16/17 at 15:30 Docusate Sodium (Colace) 200 mg BID PO Last administered on 03/17/17 08:30; Admin Dose 200 MG; Start 03/16/17 at 21:00 Fluticasone Propionate (Flonase 0.05% Nasal) 2 spray BID NASAL Last administered on 03/18/17 08:27; Admin Dose 2 SPRAY; Start 03/16/17 at 21:00 Guaifenesin/ Dextromethorphan (Mucinex Dm) 1 tab BID PO Last administered on 08:29; Admin Dose 1 TAB; Start 03/16/17 at 21:00 Lactobacillus Acidophilus/ Rhamnosus (Culturelle) 1 cap BID PO Last administered on 03/18/17 08:29; Admin Dose 1 CAP; Start 03/16/17 at 21:00 Multivitamins Therapeutic (Theragran) 1 tab DAILY PO Last administered on 08:30; Admin Dose 1 TAB; Start 03/17/17 at 09:00 Nystatin (Nystatin Susp) 5 ml TID PO Last administered on 03/18/17 12:12; Admin Dose 5 ML; Start 03/16/17 at 21:00 Senna/Docusate Sodium (Senokot-S) 1 tab BID PO Last administered on 03/17/17 08:31; Admin Dose 1 TAB; Start 03/16/17 at 21:00 Sertraline HCl (Zoloft) 25 mg DAILY PO Last administered on 03/18/17 08:31; Admin Dose 25 MG; Start 03/17/17 at 09:00 Cholecalciferol (Vitamin D) 1,200 units DAILY PO Last administered on 03/18/17 08:31; Admin Dose 1,200 UNITS; Start 03/17/17 at 09:00 Alprazolam (Xanax) 0.25 mg Q8 PO Last administered on 03/18/17 14:03; Admin Dose 0.25 MG; Start 03/16/17 at 22:00 Famotidine (Pepcid) 20 mg Q12 PO Last administered on 03/18/17 08:29; Admin Dose 20 MG; Start 03/17/17 at 21:00 Acetaminophen/ Hydrocodone Bitart ([place] (5/325)) 1 tab Q4H PRN PO PAIN LEVEL 4 -6 Last administered on 03/17/17 17:46; Admin Dose 1 TAB; Start 03/17/17 at 17: 30 Methylprednisolone Sodium Succinate (Solu-Medrol) 40 mg Q6 IV ; Start 03/18/17 at 18:00 MAXIMUS SANCHEZ Mar 18, 2017 15:08
--- NOTE | 2017-03-18 17:05 | HP ---
DATE OF ADMISSION: 03/15/2017 HISTORY OF PRESENT ILLNESS: Mushtaq Sol is a 76-year-old gentleman with a history of idiopathic pulmonary fibrosis who was admitted 3 days ago to [facility] with hypoxic respira tory failure. He is presently on the floor getting nasal cannula oxygen, but he has been having cru sting in his nose and ENT was consulted to evaluate for difficulty breathing and a deviated septum. PAST MEDICAL HISTORY: Pulmonary fibrosis, CHF. PAST SURGICAL HISTORY: None. ALLERGIES: NO KNOWN DRUG ALLERGIES. MEDICATIONS: Was reviewed. SOCIAL HISTORY: Negative for tobacco, alcohol or drug abuse. FAMILY HISTORY: Negative for any heart, lung, kidney failure, liver disease. REVIEW OF SYSTEMS: A 12-point review of systems otherwise noncontributory. PHYSICAL EXAMINATION: HEENT: On examination today, his ear canals show mild cerumen. Eardrums are intact. There is no f luid, erythema, infection. Bilateral nasal endoscopy was performed. He has significant crusting bi laterally and inferiorly, there is a good airway. I see no evidence of a deviated septum yet with c rusting I am not getting any great view of the oral cavity. Oropharynx showed tongue and floor of m outh are normal. Oropharynx shows thick mucoid discharge. NECK: Reveals no lymphadenopathy or thyromegaly. Trachea is midline. ___ lesion. IMPRESSION: Hypoxic chronic respiratory failure, nasal obstruction due to crusting. PLAN: At this point, I believe the cause is his high volume nasal cannula oxygen. While he is refu sing face mask oxygen, it is reasonable to try humidified face tent. That may work better for him t schaeffer what he is getting which is drying him out quite a bit. Even if we remove the crusting that is there now, it will come right back. I would also suggest using a lot of saline nasal spray every ho ur while he is awake to help moisturize and allow him to remove some that crusting. The humidified face tent in the meanwhile may prevent this recurring in the future. Dictated By: KASHIF CAMARENA/AMY Conf#: [id number] DID#: [id number]
[2017-03-18] MEDS: METHYLPREDNISOLONE 40 MG INJ IV SCH (17:16)
[2017-03-18] MEDS: ATORVASTATIN 10 MG TAB PO SCH (20:30)
[2017-03-19] VITALS (11 sets, daily range): BP systolic 102–115; BP diastolic 68–77; PULSE 81–106; RESP 15–22
[2017-03-19] MEDS: METHYLPREDNISOLONE 40 MG INJ IV SCH ×4 (00:32→17:15)
[2017-03-19] MEDS: ALBUTEROL/IPRATROPIUM (NEB) 3 ML AMP NEB PRN (04:50)
[2017-03-19 06:02] LABS: ADD SCAN DIFF NO
[2017-03-19] MEDS: ALPRAZOLAM 0.25 MG TAB PO SCH ×3 (06:03→21:42)
[2017-03-19 06:09] LABS: ABNORMAL IP MESSAGE 1; BASOPHILS % 0.1 % (0.0-2.0); HEMATOCRIT 37.8 % (42.0-52.0); HEMOGLOBIN 12.5 g/dl (14.0-18.0); LYMPHOCYTES # 0.5 10^3/ul (0.8-2.9); LYMPHOCYTES % 4.3 % (15.0-51.0); MEAN CORPUSCULAR HEMOGLOBIN 31.3 pg (29.0-33.0); MEAN CORPUSCULAR HGB CONC 33.1 g/dl (32.0-37.0); MEAN CORPUSCULAR VOLUME 94.5 fl (82.0-101.0); MEAN PLATELET VOLUME 9.6 fl (7.4-10.4); MONOCYTE # 0.4 10^3/ul (0.3-0.9); MONOCYTES % 3.6 % (0.0-11.0); NEUTROPHIL # 9.4 10^3/ul (1.6-7.5); NEUTROPHILS % 90.7 % (39.0-77.0); PLATELET COUNT 167 10^3/UL (140-415); WHITE BLOOD COUNT 10.4 10^3/ul (4.8-10.8)
[2017-03-19 06:50] LABS: CALCIUM 8.8 mg/dl (8.4-10.2); CREATININE 0.42 mg/dl (0.61-1.24); POTASSIUM 4.3 mmol/L (3.5-5.1)
[2017-03-19] MEDS: DICYCLOMINE 10 MG CAP PO SCH ×4 (08:22→21:23)
[2017-03-19] MEDS: INSULIN ASPART [NOVOLOG] 3 ML PEN SC SCH ×4 (08:25→21:00)
[2017-03-19] MEDS: SENNA/DOCUSATE NA (8.6MG/50MG) TAB PO SCH ×2 (09:00→21:00)
[2017-03-19] MEDS: DOCUSATE SODIUM 100 MG CAP PO SCH ×2 (09:00→21:00)
[2017-03-19] MEDS: FLUTICASONE 0.05% 16 GM NAS SPRAY NASAL SCH ×2 (09:00→21:21)
[2017-03-19] MEDS: LACTOBACILLUS RHAMNOSUS CAP PO SCH ×2 (09:01→21:24)
[2017-03-19] MEDS: CHOLECALCIFEROL 400 UNITS TAB PO SCH (09:01)
[2017-03-19] MEDS: GUAIFENESIN/DM (SR) TAB PO SCH ×2 (09:01→21:24)
[2017-03-19] MEDS: BUSPIRONE 5 MG TAB PO SCH ×3 (09:01→21:24)
[2017-03-19] MEDS: NYSTATIN SUSP 5 ML CUP PO SCH ×3 (09:01→21:25)
[2017-03-19] MEDS: ASPIRIN 81 MG TAB PO SCH (09:01)
[2017-03-19] MEDS: ASCORBIC ACID 500 MG TAB PO SCH ×2 (09:02→21:25)
[2017-03-19] MEDS: FAMOTIDINE 20 MG TAB PO SCH ×2 (09:02→21:25)
[2017-03-19] MEDS: MULTIVITAMINS THERAPEUTIC TAB PO SCH (09:02)
[2017-03-19] MEDS: SERTRALINE 50 MG TAB PO SCH (09:02)
[2017-03-19] MEDS: CALCIUM/VITAMIN D (500/200) TAB PO SCH ×2 (09:02→21:24)
[2017-03-19] MEDS: ENOXAPARIN 40 MG/0.4 ML SYG SC SCH (09:04)
--- NOTE | 2017-03-19 11:31 | CONS ---
Date/Time of Note Date/Time of Note DATE: 03/19/17 TIME: 11:29 Consult Date/Type/Reason Admit Date/Time March 15, 2017 at 12:55 Initial Consult Date Type of Consultation: Pulmonary/critical care Subjective Patient continues high flow O2 states his breathing is somewhat worse this morning Currently on 35 L/min Objective Vital Signs Date Time Temp Pulse Resp B/P Pulse Ox O2 Delivery O2 Flow Rate FiO2 03/19/17 11:16 90 100 03/19/17 08:00 91 03/19/17 07:21 98.1 21 108/74 03/16/17 20:00 High Flow 03/15/17 17:26 10.0 Intake and Output 03/18/17 03/18/17 03/19/17 15:00 23:00 07:00 Intake Total 800 ml 240 ml Output Total 1200 ml 800 ml Balance -400 ml -560 ml Exam GENERAL: Elderly appearing gentleman comfortable at rest talking in full complete sentences on high flow oxygen VITAL SIGNS: per chart NECK: Supple. No JVD or lymphadenopathy. CARDIAC EXAM: S1, S2. No added sounds or murmurs. CHEST: Diminished air entry bilaterally with crackles ABDOMEN: Soft, nontender. No guarding or rebound. EXTREMITIES: No cyanosis, clubbing or edema. NEUROLOGIC: Generalized weakness. No focal deficits. Results/Medications Result Diagram: 03/19/17 0540 03/19/17 0540 Results 24 hrs Laboratory Tests Test 03/18/17 11:37 03/18/17 17:12 03/18/17 17:14 03/18/17 20:37 Bedside Glucose 118 260 H 137 129 Test 03/19/17 05:40 03/19/17 08:19 White Blood Count 10.4 Red Blood Count 4.00 L Hemoglobin 12.5 L Hematocrit 37.8 L Mean Corpuscular Volume 94.5 Mean Corpuscular Hemoglobin 31.3 Mean Corpuscular Hemoglobin Concent 33.1 Red Cell Distribution Width 13.0 Platelet Count 167 Mean Platelet Volume 9.6 Neutrophils % 90.7 H Lymphocytes % 4.3 L Monocytes % 3.6 Eosinophils % 0.0 Basophils % 0.1 Nucleated Red Blood Cells % 0.0 Neutrophils # 9.4 H Lymphocytes # 0.5 L Monocytes # 0.4 Eosinophils # 0.0 Basophils # 0.0 Nucleated Red Blood Cells # 0.0 Sodium Level 136 Potassium Level 4.3 Chloride Level 96 L Carbon Dioxide Level 33 H Anion Gap 11 Blood Urea Nitrogen 24 H Creatinine 0.42 L Glucose Level 115 Calcium Level 8.8 Bedside Glucose 155 Medications Current Medications Ondansetron HCl (Zofran Inj) 4 mg Q6H PRN IV NAUSEA AND/OR VOMITING; Start at 13:30 Acetaminophen (Tylenol Liquid) 650 mg Q6H PRN PO PAIN LEVEL 1-3 OR FEVER Last administered on 03/17/17 20:33; Admin Dose 650 MG; Start 03/15/17 at 13:30 Morphine Sulfate (morphine) 2 mg Q4H PRN IV PAIN LEVEL 7-10; Start 03/15/17 at 13:30 Enoxaparin Sodium (Lovenox) 40 mg DAILY SC Last administered on 03/19/17 09:04 ; Admin Dose 40 MG; Start 03/16/17 at 09:00 Miscellaneous Information 1 ea NOTE XX ; Start 03/15/17 at 16:00 Glucose (Glutose) 15 gm Q15M PRN PO DECREASED GLUCOSE; Start 03/15/17 at 16:00 Glucose (Glutose) 22.5 gm Q15M PRN PO DECREASED GLUCOSE; Start 03/15/17 at 16: 00 Dextrose (D50w Syringe) 25 ml Q15M PRN IV DECREASED GLUCOSE; Start 03/15/17 at 16:00 Dextrose (D50w Syringe) 50 ml Q15M PRN IV DECREASED GLUCOSE; Start 03/15/17 at 16:00 Glucagon (Glucagen) 1 mg Q15M PRN IM DECREASED GLUCOSE; Start 03/15/17 at 16:00 Glucose (Glutose) 15 gm Q15M PRN BUCCAL DECREASED GLUCOSE; Start 03/15/17 at 16 :00 Miscellaneous Information (Pending [facility] Order For Wound Care) This patient meade... PRN PRN XX WOUND CARE; Start 03/15/17 at 19:30 Ascorbic Acid (Vitamin C) 500 mg BID PO Last administered on 03/19/17 09:02; Admin Dose 500 MG; Start 03/16/17 at 21:00 Aspirin (Aspirin) 81 mg DAILY PO Last administered on 03/19/17 09:01; Admin Dose 81 MG; Start 03/17/17 at 09:00 Atorvastatin Calcium (Lipitor) 10 mg HS PO Last administered on 03/18/17 20:30 ; Admin Dose 10 MG; Start 03/16/17 at 21:00 Bisacodyl (Dulcolax Supp) 10 mg DAILY PRN [place] CONSTIPATION; Start 03/16/17 at 15 :30 Buspirone HCl (Buspar) 7.5 mg TID PO Last administered on 03/19/17 09:01; Admin Dose 7.5 MG; Start 03/16/17 at 21:00 Calcium Carbonate (Tums) 1,000 mg Q4H PRN PO indigestion; Start 03/16/17 at 15: 30 Calcium/Vitamin D (Oyster Shell/ Vit-D (500/200)) 1 tab BID PO Last administered on 03/19/17 09:02; Admin Dose 1 TAB; Start 03/16/17 at 21:00 Clonidine (Catapres) 0.1 mg Q6H PRN PO ELEVATED SYSTOLIC BP; Start 03/16/17 at 15:30 Docusate Sodium (Colace) 200 mg BID PO Last administered on 03/17/17 08:30; Admin Dose 200 MG; Start 03/16/17 at 21:00 Fluticasone Propionate (Flonase 0.05% Nasal) 2 spray BID NASAL Last administered on 03/19/17 09:00; Admin Dose 2 SPRAY; Start 03/16/17 at 21:00 Guaifenesin/ Dextromethorphan (Mucinex Dm) 1 tab BID PO Last administered on 09:01; Admin Dose 1 TAB; Start 03/16/17 at 21:00 Lactobacillus Acidophilus/ Rhamnosus (Culturelle) 1 cap BID PO Last administered on 03/19/17 09:01; Admin Dose 1 CAP; Start 03/16/17 at 21:00 Multivitamins Therapeutic (Theragran) 1 tab DAILY PO Last administered on 09:02; Admin Dose 1 TAB; Start 03/17/17 at 09:00 Nystatin (Nystatin Susp) 5 ml TID PO Last administered on 03/19/17 09:01; Admin Dose 5 ML; Start 03/16/17 at 21:00 Senna/Docusate Sodium (Senokot-S) 1 tab BID PO Last administered on 03/18/17 20 :29; Admin Dose 1 TAB; Start 03/16/17 at 21:00 Sertraline HCl (Zoloft) 25 mg DAILY PO Last administered on 03/19/17 09:02; Admin Dose 25 MG; Start 03/17/17 at 09:00 Cholecalciferol (Vitamin D) 1,200 units DAILY PO Last administered on 03/19/17 09:01; Admin Dose 1,200 UNITS; Start 03/17/17 at 09:00 Alprazolam (Xanax) 0.25 mg Q8 PO Last administered on 03/19/17 06:03; Admin Dose 0.25 MG; Start 03/16/17 at 22:00 Famotidine (Pepcid) 20 mg Q12 PO Last administered on 03/19/17 09:02; Admin Dose 20 MG; Start 03/17/17 at 21:00 Acetaminophen/ Hydrocodone Bitart ([place] (5/325)) 1 tab Q4H PRN PO PAIN LEVEL 4 -6 Last administered on 03/17/17 17:46; Admin Dose 1 TAB; Start 03/17/17 at 17: 30 Methylprednisolone Sodium Succinate (Solu-Medrol) 40 mg Q6 IV Last administered on 03/19/17 06:03; Admin Dose 40 MG; Start 03/18/17 at 18:00 Collagenase (Santyl) 1 applic DAILY TOP ; Start 03/19/17 at 11:00 Assessment/Plan Chief Complaint/Hosp Course Assessment 1. Acute on chronic hypoxemic respiratory failure likely secondary to exacerbation of underlying idiopathic pulmonary fibrosis 2. History of gastroesophageal reflux disease 3. Severe aortic stenosis Plan 1. Continue steroids 2. Diuretics as tolerated 3. Supplemental O2 4. Aspiration precautions Prognosis remains guarded. Problems: LIZ FISHER MD, [facility] Mar 19, 2017 11:31
--- NOTE | 2017-03-19 13:42 | PN ---
Date/Time of Note Date/Time of Note DATE: 03/19/17 TIME: 13:38 Assessment/Plan VTE Prophylaxis VTE Prophylaxis Intervention: SCD's Lines/Catheters IV [facility] Type [facility]from [facility] Urinary Cath still in place: No Assessment/Plan Chief Complaint/Hosp Course Patient is a slightly anxious, oxygen saturation is 88% on Vapotherm 35%, however patient does not want BiPAP, remains tachycardic afebrile, continue to monitor on telemetry. ASSESSMENT AND PLAN: 1. Hypoxemic respiratory insufficiency secondary to acute exacerbation of idiopathic pulmonary fibrosis. Dr. Santamaria is following in pulmonology consultation. Continue Vapotherm via nasal cannula. Continue steroids. 2. Severe aortic stenosis per echocardiogram. Dr. Pereira is following patient in cardiology consultation. 3. Gastroesophageal reflux disease. Continue Protonix. 4. Anxiety. Continue Xanax p.r.n. Plan of care discussed with patient and patient's daughter at the bedside. Further recommendations based on clinical course. Plan of care discussed with Dr. Cobian. Problems: Exam/Review of Systems Vital Signs Vitals Vital Signs Date Time Temp Pulse Resp B/P Pulse Ox O2 Delivery O2 Flow Rate FiO2 03/19/17 12:00 99 03/19/17 11:55 97.9 22 103/69 97 03/19/17 11:16 100 03/16/17 20:00 High Flow 03/15/17 17:26 10.0 Intake and Output 03/18/17 03/18/17 03/19/17 15:00 23:00 07:00 Intake Total 800 ml 240 ml Output Total 1200 ml 800 ml Balance -400 ml -560 ml Exam Constitutional: alert, oriented Head: atraumatic, normocephalic Neck: supple Respiratory: diminished breath sounds Cardiovascular: nl pulses Gastrointestinal: non-tender, soft Musculoskeletal: nl extremities to inspection Extremities: normal pulses Results Result Diagram: 03/19/17 0540 03/19/17 0540 Results 24 hrs Laboratory Tests Test 03/18/17 17:12 03/18/17 17:14 03/18/17 20:37 03/19/17 05:40 Bedside Glucose 260 H 137 129 White Blood Count 10.4 Red Blood Count 4.00 L Hemoglobin 12.5 L Hematocrit 37.8 L Mean Corpuscular Volume 94.5 Mean Corpuscular Hemoglobin 31.3 Mean Corpuscular Hemoglobin Concent 33.1 Red Cell Distribution Width 13.0 Platelet Count 167 Mean Platelet Volume 9.6 Neutrophils % 90.7 H Lymphocytes % 4.3 L Monocytes % 3.6 Eosinophils % 0.0 Basophils % 0.1 Nucleated Red Blood Cells % 0.0 Neutrophils # 9.4 H Lymphocytes # 0.5 L Monocytes # 0.4 Eosinophils # 0.0 Basophils # 0.0 Nucleated Red Blood Cells # 0.0 Sodium Level 136 Potassium Level 4.3 Chloride Level 96 L Carbon Dioxide Level 33 H Anion Gap 11 Blood Urea Nitrogen 24 H Creatinine 0.42 L Glucose Level 115 Calcium Level 8.8 Test 03/19/17 08:19 03/19/17 11:37 Bedside Glucose 155 143 Medications Medications Current Medications Ondansetron HCl (Zofran Inj) 4 mg Q6H PRN IV NAUSEA AND/OR VOMITING; Start at 13:30 Acetaminophen (Tylenol Liquid) 650 mg Q6H PRN PO PAIN LEVEL 1-3 OR FEVER Last administered on 03/17/17 20:33; Admin Dose 650 MG; Start 03/15/17 at 13:30 Morphine Sulfate (morphine) 2 mg Q4H PRN IV PAIN LEVEL 7-10; Start 03/15/17 at 13:30 Enoxaparin Sodium (Lovenox) 40 mg DAILY SC Last administered on 03/19/17 09:04 ; Admin Dose 40 MG; Start 03/16/17 at 09:00 Miscellaneous Information 1 ea NOTE XX ; Start 03/15/17 at 16:00 Glucose (Glutose) 15 gm Q15M PRN PO DECREASED GLUCOSE; Start 03/15/17 at 16:00 Glucose (Glutose) 22.5 gm Q15M PRN PO DECREASED GLUCOSE; Start 03/15/17 at 16: 00 Dextrose (D50w Syringe) 25 ml Q15M PRN IV DECREASED GLUCOSE; Start 03/15/17 at 16:00 Dextrose (D50w Syringe) 50 ml Q15M PRN IV DECREASED GLUCOSE; Start 03/15/17 at 16:00 Glucagon (Glucagen) 1 mg Q15M PRN IM DECREASED GLUCOSE; Start 03/15/17 at 16:00 Glucose (Glutose) 15 gm Q15M PRN BUCCAL DECREASED GLUCOSE; Start 03/15/17 at 16 :00 Miscellaneous Information (Pending [facility] Order For Wound Care) This patient meade... PRN PRN XX WOUND CARE; Start 03/15/17 at 19:30 Ascorbic Acid (Vitamin C) 500 mg BID PO Last administered on 03/19/17 09:02; Admin Dose 500 MG; Start 03/16/17 at 21:00 Aspirin (Aspirin) 81 mg DAILY PO Last administered on 03/19/17 09:01; Admin Dose 81 MG; Start 03/17/17 at 09:00 Atorvastatin Calcium (Lipitor) 10 mg HS PO Last administered on 03/18/17 20:30 ; Admin Dose 10 MG; Start 03/16/17 at 21:00 Bisacodyl (Dulcolax Supp) 10 mg DAILY PRN [place] CONSTIPATION; Start 03/16/17 at 15 :30 Buspirone HCl (Buspar) 7.5 mg TID PO Last administered on 03/19/17 09:01; Admin Dose 7.5 MG; Start 03/16/17 at 21:00 Calcium Carbonate (Tums) 1,000 mg Q4H PRN PO indigestion; Start 03/16/17 at 15: 30 Calcium/Vitamin D (Oyster Shell/ Vit-D (500/200)) 1 tab BID PO Last administered on 03/19/17 09:02; Admin Dose 1 TAB; Start 03/16/17 at 21:00 Clonidine (Catapres) 0.1 mg Q6H PRN PO ELEVATED SYSTOLIC BP; Start 03/16/17 at 15:30 Docusate Sodium (Colace) 200 mg BID PO Last administered on 03/17/17 08:30; Admin Dose 200 MG; Start 03/16/17 at 21:00 Fluticasone Propionate (Flonase 0.05% Nasal) 2 spray BID NASAL Last administered on 03/19/17 09:00; Admin Dose 2 SPRAY; Start 03/16/17 at 21:00 Guaifenesin/ Dextromethorphan (Mucinex Dm) 1 tab BID PO Last administered on 09:01; Admin Dose 1 TAB; Start 03/16/17 at 21:00 Lactobacillus Acidophilus/ Rhamnosus (Culturelle) 1 cap BID PO Last administered on 03/19/17 09:01; Admin Dose 1 CAP; Start 03/16/17 at 21:00 Multivitamins Therapeutic (Theragran) 1 tab DAILY PO Last administered on 09:02; Admin Dose 1 TAB; Start 03/17/17 at 09:00 Nystatin (Nystatin Susp) 5 ml TID PO Last administered on 03/19/17 09:01; Admin Dose 5 ML; Start 03/16/17 at 21:00 Senna/Docusate Sodium (Senokot-S) 1 tab BID PO Last administered on 03/18/17 20 :29; Admin Dose 1 TAB; Start 03/16/17 at 21:00 Sertraline HCl (Zoloft) 25 mg DAILY PO Last administered on 03/19/17 09:02; Admin Dose 25 MG; Start 03/17/17 at 09:00 Cholecalciferol (Vitamin D) 1,200 units DAILY PO Last administered on 03/19/17 09:01; Admin Dose 1,200 UNITS; Start 03/17/17 at 09:00 Alprazolam (Xanax) 0.25 mg Q8 PO Last administered on 03/19/17 06:03; Admin Dose 0.25 MG; Start 03/16/17 at 22:00 Famotidine (Pepcid) 20 mg Q12 PO Last administered on 03/19/17 09:02; Admin Dose 20 MG; Start 03/17/17 at 21:00 Acetaminophen/ Hydrocodone Bitart ([place] (5/325)) 1 tab Q4H PRN PO PAIN LEVEL 4 -6 Last administered on 03/17/17 17:46; Admin Dose 1 TAB; Start 03/17/17 at 17: 30 Methylprednisolone Sodium Succinate (Solu-Medrol) 40 mg Q6 IV Last administered on 03/19/17 06:03; Admin Dose 40 MG; Start 03/18/17 at 18:00 Collagenase (Santyl) 1 applic DAILY TOP ; Start 03/19/17 at 11:00 CHRISTIANA HARDIN Mar 19, 2017 13:42
--- NOTE | 2017-03-19 13:56 | CONS ---
DATE OF ADMISSION: 03/15/2017 DATE OF CONSULTATION: Mushtaq Sol had significant crusting of bilateral nasal cavities. It was hard to see everything even with endoscopy. I was, however, able to get into the choanae bilaterally, so I returned today to debride all the crusting. The nose was sprayed with topical lidocaine with oxymetazoline. After sufficient period of time had elapsed, using suction and forceps, I was able to gently debride all the crusting from the inside o f the nose. He does have a moderate-sized septal perforation. He does have an inferior deviation t o the right side as well as significant scar tissue. He has had previous sinus surgery as I can see into the sphenoid sinus bilaterally just with a headlight. With that being said, his breathing is much better. He did complain of wax in his ears, so this too I cleaned using suction. The oral cav ity and oropharynx are quite clear. Tongue, floor and mouth are normal. Neck reveals no lymphadeno quynh or thyromegaly. Trachea is midline. Parotid and submandibular glands without lesion. IMPRESSION: 1. Nasal obstruction. 2. Septal perforation. 3. Deviated septum. 4. Chronic rhinitis. 5. Cerumen impaction. PLAN: At this point, he is feeling much better. Please feel free to reconsult at any time. Dictated By: KASHIF CAMARENA/AMY Conf#: [id number] DID#: [id number]
[2017-03-19] MEDS: COLLAGENASE 30 GM TUBE TOP SCH (15:08)
--- NOTE | 2017-03-19 16:53 | PN ---
DATE: 03/19/2017 CARDIOLOGY FOLLOWUP SUBJECTIVE: Discussed with the staff. Discussed with the patient's daughter. Rhythm strip was rev iewed. The patient remains in sinus rhythm, sinus tachycardia. He is having increasing dyspnea, sh ortness of breath today again. No chest pain or pressure. No palpitation. MEDICATIONS: Reviewed as per medication reconciliation, personally reviewed. PHYSICAL EXAMINATION: VITAL SIGNS: Temperature 97.9, heart rate of 99, blood pressure 103/69, respiratory rate of 22, sat urating 97%. HEENT: Normocephalic, atraumatic. Appears in mild to moderate respiratory distress. CARDIOVASCULAR: Regular rate and rhythm, systolic ejection murmur. PULMONARY: With no wheezes heard. Minimal rhonchi. GASTROINTESTINAL: Soft, nontender. EXTREMITIES: No significant lower extremity edema. NEUROLOGIC: Awake and alert. PSYCHIATRIC: Appears to be calm, pleasant. LABORATORY DATA: WBC of 10.4, hemoglobin 12.5, platelet 167. Sodium 136, potassium 4.3, BUN of 24, creatinine 0.42, glucose 115. ASSESSMENT AND PLAN: 1. Aortic stenosis, severe, based on the echo. 2. Congestive heart failure secondary to above, currently appears to be euvolemic. 3. Severe hypoxemia and hypercapnic respiratory failure. 4. Pulmonary fibrosis. 5. Hypertension, under good control. 6. Abnormal EKG due to above. RECOMMENDATIONS: Continue with patient's respiratory care and management as per pulmonary. Diuresi s as needed. At this point does not appear to be fluid overloaded though. Monitor on telemetry. Dictated By: JIAN RESTREPO MD AV/AMY Conf#: [id number] DID#: [id number] CC: DE BENSON MD;*EndCC*
[2017-03-19] MEDS: ATORVASTATIN 10 MG TAB PO SCH (21:25)
[2017-03-19] MEDS: HYDROCODONE/APAP (5/325) TAB PO PRN (21:42)
[2017-03-20] VITALS (12 sets, daily range): BP systolic 99–123; BP diastolic 71–84; PULSE 77–108; RESP 15–18
[2017-03-20] MEDS: METHYLPREDNISOLONE 40 MG INJ IV SCH ×4 (00:53→17:13)
[2017-03-20] MEDS: ALPRAZOLAM 0.25 MG TAB PO SCH ×3 (06:00→21:01)
[2017-03-20 06:44] LABS: ADD SCAN DIFF NO
[2017-03-20 06:58] LABS: ABNORMAL IP MESSAGE 1; BASOPHILS % 0.1 % (0.0-2.0); HEMATOCRIT 38.3 % (42.0-52.0); LYMPHOCYTES # 0.6 10^3/ul (0.8-2.9); LYMPHOCYTES % 4.8 % (15.0-51.0); MEAN CORPUSCULAR HEMOGLOBIN 32.3 pg (29.0-33.0); MEAN CORPUSCULAR HGB CONC 33.9 g/dl (32.0-37.0); MONOCYTE # 0.3 10^3/ul (0.3-0.9); MONOCYTES % 2.4 % (0.0-11.0); NEUTROPHIL # 10.6 10^3/ul (1.6-7.5); NEUTROPHILS % 91.1 % (39.0-77.0); PLATELET COUNT 193 10^3/UL (140-415); RED BLOOD COUNT 4.03 10^6/ul (4.70-6.10); RED CELL DISTRIBUTION WIDTH 13.1 % (11.5-14.5); WHITE BLOOD COUNT 11.6 10^3/ul (4.8-10.8)
[2017-03-20 07:10] LABS: CALCIUM 8.6 mg/dl (8.4-10.2); CREATININE 0.39 mg/dl (0.61-1.24); POTASSIUM 4.7 mmol/L (3.5-5.1)
[2017-03-20] MEDS: INSULIN ASPART [NOVOLOG] 3 ML PEN SC SCH ×4 (07:55→21:00)
[2017-03-20] MEDS: FLUTICASONE 0.05% 16 GM NAS SPRAY NASAL SCH ×2 (08:44→21:05)
[2017-03-20] MEDS: DICYCLOMINE 10 MG CAP PO SCH ×4 (08:45→21:01)
[2017-03-20] MEDS: ASPIRIN 81 MG TAB PO SCH (08:45)
[2017-03-20] MEDS: LACTOBACILLUS RHAMNOSUS CAP PO SCH ×2 (08:45→21:01)
[2017-03-20] MEDS: NYSTATIN SUSP 5 ML CUP PO SCH ×3 (08:45→21:00)
[2017-03-20] MEDS: FAMOTIDINE 20 MG TAB PO SCH ×2 (08:45→21:00)
[2017-03-20] MEDS: CHOLECALCIFEROL 400 UNITS TAB PO SCH (08:45)
[2017-03-20] MEDS: MULTIVITAMINS THERAPEUTIC TAB PO SCH (08:45)
[2017-03-20] MEDS: BUSPIRONE 5 MG TAB PO SCH ×3 (08:45→22:25)
[2017-03-20] MEDS: SERTRALINE 50 MG TAB PO SCH (08:46)
[2017-03-20] MEDS: ASCORBIC ACID 500 MG TAB PO SCH ×2 (08:46→21:00)
[2017-03-20] MEDS: GUAIFENESIN/DM (SR) TAB PO SCH ×2 (08:46→21:01)
[2017-03-20] MEDS: CALCIUM/VITAMIN D (500/200) TAB PO SCH ×2 (08:46→21:00)
[2017-03-20] MEDS: ENOXAPARIN 40 MG/0.4 ML SYG SC SCH (08:47)
[2017-03-20] MEDS: DOCUSATE SODIUM 100 MG CAP PO SCH ×2 (08:52→21:00)
[2017-03-20] MEDS: SENNA/DOCUSATE NA (8.6MG/50MG) TAB PO SCH ×2 (08:52→21:00)
[2017-03-20] MEDS: COLLAGENASE 30 GM TUBE TOP SCH ×2 (09:00→16:55)
--- NOTE | 2017-03-20 11:46 | CONS ---
Date/Time of Note Date/Time of Note DATE: 03/20/17 TIME: 11:44 Assessment/Plan Assessment/Plan Additional Assessment/Plan Assessment recommendations; 1. Patient admitted for exacerbation of underlying pulmonary fibrosis, no currently on Solu-Medrol 40 mg every 6 hours. Patient also received pulse high- dose Solu-Medrol for 3 days. 2. History of underlying aortic stenosis. 3. Compensated mild congestive heart failure. 4. Severe persistent hypoxemia ID, patient on high flow oxygen. Continue current treatment. Further steroid tapering in 24 hours. Prognosis is poor. Consultation Date/Type/Reason Admit Date/Time March 15, 2017 at 12:55 Type of Consultation: Pulmonary/critical care 24 HR Interval Summary Free Text/Dictation Patient condition is stable. Denies any shortness of breath at rest. But does complain of significant shortness of breath upon minimal exertion. Complains of scant chest congestion. Scant cough. General exam; elderly male, awake alert currently in no distress. Exam/Review of Systems Vital Signs Vitals Vital Signs Date Time Temp Pulse Resp B/P Pulse Ox O2 Delivery O2 Flow Rate FiO2 03/20/17 11:10 91 100 03/20/17 08:46 77 03/20/17 08:00 98.2 17 119/81 03/16/17 20:00 High Flow Intake and Output 03/19/17 03/19/17 03/20/17 15:00 23:00 07:00 Intake Total 960 ml 700 ml Output Total 1200 ml 1200 ml Balance -240 ml -500 ml Exam HEENT exam; supple neck, no JVD. No lymphadenopathy. Midline trachea. No thyromegaly. Patient wears upper dentures. Patient has a multiple carious teeth in the lower jaw. Chest examination; diffuse crackles in lower lobes bilaterally upper lobes are fairly clear. S1-S2 audible, no murmurs. Regular rhythm. Abdomen examination; soft, nondistended. No organomegaly. Bowel sounds audible. Extremity examination; no peripheral edema. No clubbing. Pulses 1+ bilaterally. 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 Results Result Diagram: 03/20/17 0625 03/20/17 0625 Results 24 hrs Laboratory Tests Test 03/19/17 17:14 03/19/17 21:44 03/20/17 06:25 03/20/17 07:27 Bedside Glucose 110 138 109 White Blood Count 11.6 H Red Blood Count 4.03 L Hemoglobin 13.0 L Hematocrit 38.3 L Mean Corpuscular Volume 95.0 Mean Corpuscular Hemoglobin 32.3 Mean Corpuscular Hemoglobin Concent 33.9 Red Cell Distribution Width 13.1 Platelet Count 193 Mean Platelet Volume 10.0 Neutrophils % 91.1 H Lymphocytes % 4.8 L Monocytes % 2.4 Eosinophils % 0.0 Basophils % 0.1 Nucleated Red Blood Cells % 0.0 Neutrophils # 10.6 H Lymphocytes # 0.6 L Monocytes # 0.3 Eosinophils # 0.0 Basophils # 0.0 Nucleated Red Blood Cells # 0.0 Sodium Level 135 Potassium Level 4.7 Chloride Level 95 L Carbon Dioxide Level 37 H Anion Gap 8 Blood Urea Nitrogen 24 H Creatinine 0.39 L Glucose Level 102 Calcium Level 8.6 Medications Medications Current Medications Ondansetron HCl (Zofran Inj) 4 mg Q6H PRN IV NAUSEA AND/OR VOMITING; Start at 13:30 Acetaminophen (Tylenol Liquid) 650 mg Q6H PRN PO PAIN LEVEL 1-3 OR FEVER Last administered on 03/17/17 20:33; Admin Dose 650 MG; Start 03/15/17 at 13:30 Morphine Sulfate (morphine) 2 mg Q4H PRN IV PAIN LEVEL 7-10; Start 03/15/17 at 13:30 Enoxaparin Sodium (Lovenox) 40 mg DAILY SC Last administered on 03/20/17 08:47 ; Admin Dose 40 MG; Start 03/16/17 at 09:00 Miscellaneous Information 1 ea NOTE XX ; Start 03/15/17 at 16:00 Glucose (Glutose) 15 gm Q15M PRN PO DECREASED GLUCOSE; Start 03/15/17 at 16:00 Glucose (Glutose) 22.5 gm Q15M PRN PO DECREASED GLUCOSE; Start 03/15/17 at 16: 00 Dextrose (D50w Syringe) 25 ml Q15M PRN IV DECREASED GLUCOSE; Start 03/15/17 at 16:00 Dextrose (D50w Syringe) 50 ml Q15M PRN IV DECREASED GLUCOSE; Start 03/15/17 at 16:00 Glucagon (Glucagen) 1 mg Q15M PRN IM DECREASED GLUCOSE; Start 03/15/17 at 16:00 Glucose (Glutose) 15 gm Q15M PRN BUCCAL DECREASED GLUCOSE; Start 03/15/17 at 16 :00 [facility] This patient meade... PRN PRN XX WOUND CARE; Start 03/15/17 at 19:30 Ascorbic Acid (Vitamin C) 500 mg BID PO Last administered on 03/20/17 08:46; Admin Dose 500 MG; Start 03/16/17 at 21:00 Aspirin (Aspirin) 81 mg DAILY PO Last administered on 03/20/17 08:45; Admin Dose 81 MG; Start 03/17/17 at 09:00 Atorvastatin Calcium (Lipitor) 10 mg HS PO Last administered on 03/19/17 21:25 ; Admin Dose 10 MG; Start 03/16/17 at 21:00 Bisacodyl (Dulcolax Supp) 10 mg DAILY PRN [place] CONSTIPATION; Start 03/16/17 at 15 :30 Buspirone HCl (Buspar) 7.5 mg TID PO Last administered on 03/20/17 08:45; Admin Dose 7.5 MG; Start 03/16/17 at 21:00 Calcium Carbonate (Tums) 1,000 mg Q4H PRN PO indigestion; Start 03/16/17 at 15: 30 Calcium/Vitamin D (Oyster Shell/ Vit-D (500/200)) 1 tab BID PO Last administered on 03/20/17 08:46; Admin Dose 1 TAB; Start 03/16/17 at 21:00 Clonidine (Catapres) 0.1 mg Q6H PRN PO ELEVATED SYSTOLIC BP; Start 03/16/17 at 15:30 Docusate Sodium (Colace) 200 mg BID PO Last administered on 03/17/17 08:30; Admin Dose 200 MG; Start 03/16/17 at 21:00 Fluticasone Propionate (Flonase 0.05% Nasal) 2 spray BID NASAL Last administered on 03/20/17 08:44; Admin Dose 2 SPRAY; Start 03/16/17 at 21:00 Guaifenesin/ Dextromethorphan (Mucinex Dm) 1 tab BID PO Last administered on 08:46; Admin Dose 1 TAB; Start 03/16/17 at 21:00 Lactobacillus Acidophilus/ Rhamnosus (Culturelle) 1 cap BID PO Last administered on 03/20/17 08:45; Admin Dose 1 CAP; Start 03/16/17 at 21:00 Multivitamins Therapeutic (Theragran) 1 tab DAILY PO Last administered on 08:45; Admin Dose 1 TAB; Start 03/17/17 at 09:00 Nystatin (Nystatin Susp) 5 ml TID PO Last administered on 03/20/17 08:45; Admin Dose 5 ML; Start 03/16/17 at 21:00 Senna/Docusate Sodium (Senokot-S) 1 tab BID PO Last administered on 03/18/17 20 :29; Admin Dose 1 TAB; Start 03/16/17 at 21:00 Sertraline HCl (Zoloft) 25 mg DAILY PO Last administered on 03/20/17 08:46; Admin Dose 25 MG; Start 03/17/17 at 09:00 Cholecalciferol (Vitamin D) 1,200 units DAILY PO Last administered on 03/20/17 08:45; Admin Dose 1,200 UNITS; Start 03/17/17 at 09:00 Alprazolam (Xanax) 0.25 mg Q8 PO Last administered on 03/19/17 21:42; Admin Dose 0.25 MG; Start 03/16/17 at 22:00 Famotidine (Pepcid) 20 mg Q12 PO Last administered on 03/20/17 08:45; Admin Dose 20 MG; Start 03/17/17 at 21:00 Acetaminophen/ Hydrocodone Bitart ([place] (5/325)) 1 tab Q4H PRN PO PAIN LEVEL 4 -6 Last administered on 03/19/17 21:42; Admin Dose 1 TAB; Start 03/17/17 at 17: 30 Methylprednisolone Sodium Succinate (Solu-Medrol) 40 mg Q6 IV Last administered on 03/20/17 05:14; Admin Dose 40 MG; Start 03/18/17 at 18:00 Collagenase (Santyl) 1 applic DAILY TOP Last administered on 03/19/17 15:08; Admin Dose 1 APPLIC; Start 03/19/17 at 11:00 POLO HOOKS Mar 20, 2017 11:46
--- NOTE | 2017-03-20 15:33 | PN ---
Date/Time of Note Date/Time of Note DATE: 03/20/17 TIME: 15:28 Assessment/Plan VTE Prophylaxis VTE Prophylaxis Intervention: other Lines/Catheters IV [facility]ter Type [facility]from [facility] Sal[facility] Lock Urinary Cath still in place: No Assessment/Plan Assessment/Plan 1. Hypoxemic respiratory insufficiency secondary to acute exacerbation of idiopathic pulmonary fibrosis. Dr. Santamaria is following in pulmonology consultation. Continue Vapotherm via nasal cannula. Continue steroids. 2. Severe aortic stenosis per echocardiogram. Dr. Pereira is following patient in cardiology consultation. 3. Gastroesophageal reflux disease. Continue Protonix. 4. Anxiety. Continue Xanax p.r.n. Further recommendations based on clinical course. Plan of care discussed with Dr. Cobian. Subjective 24 Hr Interval Summary Respiratory: shortness of breath Genitourinary: no complaints Musculoskeletal: no complaints Skin: no complaints Exam/Review of Systems Vital Signs Vitals Vital Signs Date Time Temp Pulse Resp B/P Pulse Ox O2 Delivery O2 Flow Rate FiO2 03/20/17 12:27 96 03/20/17 12:00 98.0 18 99/71 96 03/20/17 11:10 100 03/16/17 20:00 High Flow Intake and Output 03/19/17 03/19/17 03/20/17 15:00 23:00 07:00 Intake Total 960 ml 700 ml Output Total 1200 ml 1200 ml Balance -240 ml -500 ml Exam Constitutional: alert, oriented, well developed Respiratory: clear to auscultation, normal air movement Cardiovascular: nl pulses, regular rate and rhythm Gastrointestinal: non-tender, soft Musculoskeletal: nl extremities to inspection Extremities: normal pulses Neurological: nl mental status, nl speech Skin: nl turgor Lymph: nontender Results Result Diagram: 03/20/17 0625 03/20/17 0625 Results 24 hrs Laboratory Tests Test 03/19/17 17:14 03/19/17 21:44 03/20/17 06:25 03/20/17 07:27 Bedside Glucose 110 138 109 White Blood Count 11.6 H Red Blood Count 4.03 L Hemoglobin 13.0 L Hematocrit 38.3 L Mean Corpuscular Volume 95.0 Mean Corpuscular Hemoglobin 32.3 Mean Corpuscular Hemoglobin Concent 33.9 Red Cell Distribution Width 13.1 Platelet Count 193 Mean Platelet Volume 10.0 Neutrophils % 91.1 H Lymphocytes % 4.8 L Monocytes % 2.4 Eosinophils % 0.0 Basophils % 0.1 Nucleated Red Blood Cells % 0.0 Neutrophils # 10.6 H Lymphocytes # 0.6 L Monocytes # 0.3 Eosinophils # 0.0 Basophils # 0.0 Nucleated Red Blood Cells # 0.0 Sodium Level 135 Potassium Level 4.7 Chloride Level 95 L Carbon Dioxide Level 37 H Anion Gap 8 Blood Urea Nitrogen 24 H Creatinine 0.39 L Glucose Level 102 Calcium Level 8.6 Test 03/20/17 12:03 Bedside Glucose 117 Medications Medications Current Medications Ondansetron HCl (Zofran Inj) 4 mg Q6H PRN IV NAUSEA AND/OR VOMITING; Start at 13:30 Acetaminophen (Tylenol Liquid) 650 mg Q6H PRN PO PAIN LEVEL 1-3 OR FEVER Last administered on 03/17/17 20:33; Admin Dose 650 MG; Start 03/15/17 at 13:30 Morphine Sulfate (morphine) 2 mg Q4H PRN IV PAIN LEVEL 7-10; Start 03/15/17 at 13:30 Enoxaparin Sodium (Lovenox) 40 mg DAILY SC Last administered on 03/20/17 08:47 ; Admin Dose 40 MG; Start 03/16/17 at 09:00 Miscellaneous Information 1 ea NOTE XX ; Start 03/15/17 at 16:00 Glucose (Glutose) 15 gm Q15M PRN PO DECREASED GLUCOSE; Start 03/15/17 at 16:00 Glucose (Glutose) 22.5 gm Q15M PRN PO DECREASED GLUCOSE; Start 03/15/17 at 16: 00 Dextrose (D50w Syringe) 25 ml Q15M PRN IV DECREASED GLUCOSE; Start 03/15/17 at 16:00 Dextrose (D50w Syringe) 50 ml Q15M PRN IV DECREASED GLUCOSE; Start 03/15/17 at 16:00 Glucagon (Glucagen) 1 mg Q15M PRN IM DECREASED GLUCOSE; Start 03/15/17 at 16:00 Glucose (Glutose) 15 gm Q15M PRN BUCCAL DECREASED GLUCOSE; Start 03/15/17 at 16 :00 Miscellaneous Information (Pending [facility] Order For Wound Care) This patient meade... PRN PRN XX WOUND CARE; Start 03/15/17 at 19:30 Ascorbic Acid (Vitamin C) 500 mg BID PO Last administered on 03/20/17 08:46; Admin Dose 500 MG; Start 03/16/17 at 21:00 Aspirin (Aspirin) 81 mg DAILY PO Last administered on 03/20/17 08:45; Admin Dose 81 MG; Start 03/17/17 at 09:00 Atorvastatin Calcium (Lipitor) 10 mg HS PO Last administered on 03/19/17 21:25 ; Admin Dose 10 MG; Start 03/16/17 at 21:00 Bisacodyl (Dulcolax Supp) 10 mg DAILY PRN [place] CONSTIPATION; Start 03/16/17 at 15 :30 Buspirone HCl (Buspar) 7.5 mg TID PO Last administered on 03/20/17 13:16; Admin Dose 7.5 MG; Start 03/16/17 at 21:00 Calcium Carbonate (Tums) 1,000 mg Q4H PRN PO indigestion; Start 03/16/17 at 15: 30 Calcium/Vitamin D ([place]yster Shell/ Vit-D (500/200)) 1 tab BID PO Last administered on 03/20/17 08:46; Admin Dose 1 TAB; Start 03/16/17 at 21:00 Clonidine (Catapres) 0.1 mg Q6H PRN PO ELEVATED SYSTOLIC BP; Start 03/16/17 at 15:30 Docusate Sodium (Colace) 200 mg BID PO Last administered on 03/17/17 08:30; Admin Dose 200 MG; Start 03/16/17 at 21:00 Fluticasone Propionate (Flonase 0.05% Nasal) 2 spray BID NASAL Last administered on 03/20/17 08:44; Admin Dose 2 SPRAY; Start 03/16/17 at 21:00 Guaifenesin/ Dextromethorphan (Mucinex Dm) 1 tab BID PO Last administered on 08:46; Admin Dose 1 TAB; Start 03/16/17 at 21:00 Lactobacillus Acidophilus/ Rhamnosus (Culturelle) 1 cap BID PO Last administered on 03/20/17 08:45; Admin Dose 1 CAP; Start 03/16/17 at 21:00 Multivitamins Therapeutic (Theragran) 1 tab DAILY PO Last administered on 08:45; Admin Dose 1 TAB; Start 03/17/17 at 09:00 Nystatin (Nystatin Susp) 5 ml TID PO Last administered on 03/20/17 13:17; Admin Dose 5 ML; Start 03/16/17 at 21:00 Senna/Docusate Sodium (Senokot-S) 1 tab BID PO Last administered on 03/18/17 20 :29; Admin Dose 1 TAB; Start 03/16/17 at 21:00 Sertraline HCl (Zoloft) 25 mg DAILY PO Last administered on 03/20/17 08:46; Admin Dose 25 MG; Start 03/17/17 at 09:00 Cholecalciferol (Vitamin D) 1,200 units DAILY PO Last administered on 03/20/17 08:45; Admin Dose 1,200 UNITS; Start 03/17/17 at 09:00 Alprazolam (Xanax) 0.25 mg Q8 PO Last administered on 03/20/17 13:17; Admin Dose 0.25 MG; Start 03/16/17 at 22:00 Famotidine (Pepcid) 20 mg Q12 PO Last administered on 03/20/17 08:45; Admin Dose 20 MG; Start 03/17/17 at 21:00 Acetaminophen/ Hydrocodone Bitart ([place] (5/325)) 1 tab Q4H PRN PO PAIN LEVEL 4 -6 Last administered on 03/19/17 21:42; Admin Dose 1 TAB; Start 03/17/17 at 17: 30 Methylprednisolone Sodium Succinate (Solu-Medrol) 40 mg Q6 IV Last administered on 03/20/17 12:04; Admin Dose 40 MG; Start 03/18/17 at 18:00 Collagenase (Santyl) 1 applic DAILY TOP Last administered on 03/19/17 15:08; Admin Dose 1 APPLIC; Start 03/19/17 at 11:00 MAXIMUS SANCHEZ Mar 20, 2017 15:33
[2017-03-20] MEDS: ATORVASTATIN 10 MG TAB PO SCH (21:00)
[2017-03-20] MEDS: HYDROCODONE/APAP (5/325) TAB PO PRN (21:01)
[2017-03-21] VITALS (13 sets, daily range): BP systolic 108–115; BP diastolic 50–76; PULSE 63–102; RESP 15–21
[2017-03-21] MEDS: METHYLPREDNISOLONE 40 MG INJ IV SCH ×5 (00:35→23:38)
[2017-03-21] MEDS: ALPRAZOLAM 0.25 MG TAB PO SCH ×4 (06:00→21:25)
[2017-03-21] MEDS: DICYCLOMINE 10 MG CAP PO SCH ×4 (06:46→21:25)
[2017-03-21 07:06] LABS: ADD SCAN DIFF NO
[2017-03-21 07:17] LABS: ABNORMAL IP MESSAGE 1; BASOPHILS % 0.2 % (0.0-2.0); HEMATOCRIT 39.2 % (42.0-52.0); HEMOGLOBIN 12.9 g/dl (14.0-18.0); LYMPHOCYTES # 0.5 10^3/ul (0.8-2.9); LYMPHOCYTES % 4.1 % (15.0-51.0); MEAN CORPUSCULAR HEMOGLOBIN 31.3 pg (29.0-33.0); MEAN CORPUSCULAR HGB CONC 32.9 g/dl (32.0-37.0); MEAN CORPUSCULAR VOLUME 95.1 fl (82.0-101.0); MEAN PLATELET VOLUME 9.8 fl (7.4-10.4); MONOCYTE # 0.4 10^3/ul (0.3-0.9); NEUTROPHIL # 11.6 10^3/ul (1.6-7.5); NEUTROPHILS % 90.6 % (39.0-77.0); PLATELET COUNT 191 10^3/UL (140-415); RED BLOOD COUNT 4.12 10^6/ul (4.70-6.10); RED CELL DISTRIBUTION WIDTH 13.1 % (11.5-14.5); WHITE BLOOD COUNT 12.8 10^3/ul (4.8-10.8)
[2017-03-21 07:34] LABS: CALCIUM 8.7 mg/dl (8.4-10.2); CREATININE 0.45 mg/dl (0.61-1.24); POTASSIUM 4.5 mmol/L (3.5-5.1)
[2017-03-21] MEDS: INSULIN ASPART [NOVOLOG] 3 ML PEN SC SCH ×4 (07:46→21:00)
[2017-03-21] MEDS: FLUTICASONE 0.05% 16 GM NAS SPRAY NASAL SCH ×2 (08:21→21:25)
[2017-03-21] MEDS: BUSPIRONE 5 MG TAB PO SCH ×3 (08:22→21:25)
[2017-03-21] MEDS: NYSTATIN SUSP 5 ML CUP PO SCH ×3 (08:22→21:24)
[2017-03-21] MEDS: FAMOTIDINE 20 MG TAB PO SCH ×2 (08:22→21:24)
[2017-03-21] MEDS: SERTRALINE 50 MG TAB PO SCH (08:22)
[2017-03-21] MEDS: MULTIVITAMINS THERAPEUTIC TAB PO SCH (08:22)
[2017-03-21] MEDS: ASCORBIC ACID 500 MG TAB PO SCH ×2 (08:22→21:25)
[2017-03-21] MEDS: GUAIFENESIN/DM (SR) TAB PO SCH ×2 (08:22→21:24)
[2017-03-21] MEDS: CALCIUM/VITAMIN D (500/200) TAB PO SCH ×2 (08:22→21:24)
[2017-03-21] MEDS: CHOLECALCIFEROL 400 UNITS TAB PO SCH (08:23)
[2017-03-21] MEDS: ASPIRIN 81 MG TAB PO SCH (08:23)
[2017-03-21] MEDS: LACTOBACILLUS RHAMNOSUS CAP PO SCH ×2 (08:23→21:24)
[2017-03-21] MEDS: ENOXAPARIN 40 MG/0.4 ML SYG SC SCH (08:30)
[2017-03-21] MEDS: DOCUSATE SODIUM 100 MG CAP PO SCH ×2 (09:00→21:00)
[2017-03-21] MEDS: SENNA/DOCUSATE NA (8.6MG/50MG) TAB PO SCH ×2 (09:00→21:24)
[2017-03-21] MEDS: ALBUTEROL/IPRATROPIUM (NEB) 3 ML AMP NEB PRN ×2 (10:12→20:10)
--- NOTE | 2017-03-21 14:04 | CONS ---
Date/Time of Note Date/Time of Note DATE: 03/21/17 TIME: 14:02 Assessment/Plan Assessment/Plan Additional Assessment/Plan Assessment recommendations; next 1. Patient admitted for pulmonary fibrosis exacerbation status post high-dose pulse Solu-Medrol now maintained on 40 mg every 6 hours. 2. History of underlying aortic stenosis. 3. Congestive heart failure which is clinically compensated. 4. Persistent severe hypoxemia, patient on high flow nasal cannula. Continue current treatment. Patient to be transferred to pulmonary rehab center today. Prognosis remains poor. Consultation Date/Type/Reason Admit Date/Time March 15, 2017 at 12:55 Type of Consultation: Pulmonary/critical care 24 HR Interval Summary Free Text/Dictation Patient's condition is tenuous at best. Still complains of shortness of breath at rest. Denies any wheezing. Chest pain. Fever chills. Complains of scant cough. General exam; elderly male, awake and alert appears mildly anxious. Currently in no distress. Exam/Review of Systems Vital Signs Vitals Vital Signs Date Time Temp Pulse Resp B/P Pulse Ox O2 Delivery O2 Flow Rate FiO2 03/21/17 12:07 97 03/21/17 11:29 98.0 18 108/68 96 03/21/17 10:13 100 Intake and Output 03/20/17 03/20/17 03/21/17 15:00 23:00 07:00 Intake Total 650 ml Output Total 300 ml Balance 350 ml Exam HEENT examination; supple neck, no JVD. No lymphadenopathy. Midline trachea. No thyromegaly. Pupils are midsize and reactive to light. Upper jaw is edentulous. Patient has a multiple carious teeth in the lower jaw. Chest examined; diffuse bilateral crackles more pronounced on lung bases. S1- S2 audible, no murmurs. Regular rhythm. Abdomen examination; soft, nontender. No organomegaly. Nondistended. Bowel sounds audible. Extremity examination; no peripheral edema. 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 Results Result Diagram: 03/21/17 0615 03/21/17 0615 Results 24 hrs Laboratory Tests Test 03/20/17 17:12 03/20/17 20:48 03/21/17 06:15 03/21/17 07:46 Bedside Glucose 108 121 102 White Blood Count 12.8 H Red Blood Count 4.12 L Hemoglobin 12.9 L Hematocrit 39.2 L Mean Corpuscular Volume 95.1 Mean Corpuscular Hemoglobin 31.3 Mean Corpuscular Hemoglobin Concent 32.9 Red Cell Distribution Width 13.1 Platelet Count 191 Mean Platelet Volume 9.8 Neutrophils % 90.6 H Lymphocytes % 4.1 L Monocytes % 3.0 Eosinophils % 0.0 Basophils % 0.2 Nucleated Red Blood Cells % 0.0 Neutrophils # 11.6 H Lymphocytes # 0.5 L Monocytes # 0.4 Eosinophils # 0.0 Basophils # 0.0 Nucleated Red Blood Cells # 0.0 Sodium Level 135 Potassium Level 4.5 Chloride Level 95 L Carbon Dioxide Level 36 H Anion Gap 9 Blood Urea Nitrogen 22 H Creatinine 0.45 L Glucose Level 97 Calcium Level 8.7 Test 03/21/17 11:26 Bedside Glucose 180 Medications Medications Current Medications Ondansetron HCl (Zofran Inj) 4 mg Q6H PRN IV NAUSEA AND/OR VOMITING; Start at 13:30 Acetaminophen (Tylenol Liquid) 650 mg Q6H PRN PO PAIN LEVEL 1-3 OR FEVER Last administered on 03/17/17 20:33; Admin Dose 650 MG; Start 03/15/17 at 13:30 Morphine Sulfate (morphine) 2 mg Q4H PRN IV PAIN LEVEL 7-10; Start 03/15/17 at 13:30 Enoxaparin Sodium (Lovenox) 40 mg DAILY SC Last administered on 03/21/17 08:30 ; Admin Dose 40 MG; Start 03/16/17 at 09:00 Miscellaneous Information 1 ea NOTE XX ; Start 03/15/17 at 16:00 Glucose (Glutose) 15 gm Q15M PRN PO DECREASED GLUCOSE; Start 03/15/17 at 16:00 Glucose (Glutose) 22.5 gm Q15M PRN PO DECREASED GLUCOSE; Start 03/15/17 at 16: 00 Dextrose (D50w Syringe) 25 ml Q15M PRN IV DECREASED GLUCOSE; Start 03/15/17 at 16:00 Dextrose (D50w Syringe) 50 ml Q15M PRN IV DECREASED GLUCOSE; Start 03/15/17 at 16:00 Glucagon (Glucagen) 1 mg Q15M PRN IM DECREASED GLUCOSE; Start 03/15/17 at 16:00 Glucose (Glutose) 15 gm Q15M PRN BUCCAL DECREASED GLUCOSE; Start 03/15/17 at 16 :00 Miscellaneous Information (Pending Santyl Order For Wound Care) This patient meade... PRN PRN XX WOUND CARE; Start 03/15/17 at 19:30 Ascorbic Acid (Vitamin C) 500 mg BID PO Last administered on 03/21/17 08:22; Admin Dose 500 MG; Start 03/16/17 at 21:00 Aspirin (Aspirin) 81 mg DAILY PO Last administered on 03/21/17 08:23; Admin Dose 81 MG; Start 03/17/17 at 09:00 Atorvastatin Calcium (Lipitor) 10 mg HS PO Last administered on 03/20/17 21:00 ; Admin Dose 10 MG; Start 03/16/17 at 21:00 Bisacodyl (Dulcolax Supp) 10 mg DAILY PRN [place] CONSTIPATION; Start 03/16/17 at 15 :30 Buspirone HCl (Buspar) 7.5 mg TID PO Last administered on 03/21/17 13:01; Admin Dose 7.5 MG; Start 03/16/17 at 21:00 Calcium Carbonate (Tums) 1,000 mg Q4H PRN PO indigestion; Start 03/16/17 at 15: 30 Calcium/Vitamin D (Oyster Shell/ Vit-D (500/200)) 1 tab BID PO Last administered on 03/21/17 08:22; Admin Dose 1 TAB; Start 03/16/17 at 21:00 Clonidine (Catapres) 0.1 mg Q6H PRN PO ELEVATED SYSTOLIC BP; Start 03/16/17 at 15:30 Docusate Sodium (Colace) 200 mg BID PO Last administered on 03/17/17 08:30; Admin Dose 200 MG; Start 03/16/17 at 21:00 Fluticasone Propionate (Flonase 0.05% Nasal) 2 spray BID NASAL Last administered on 03/21/17 08:21; Admin Dose 2 SPRAY; Start 03/16/17 at 21:00 Guaifenesin/ Dextromethorphan (Mucinex Dm) 1 tab BID PO Last administered on 08:22; Admin Dose 1 TAB; Start 03/16/17 at 21:00 Lactobacillus Acidophilus/ Rhamnosus (Culturelle) 1 cap BID PO Last administered on 03/21/17 08:23; Admin Dose 1 CAP; Start 03/16/17 at 21:00 Multivitamins Therapeutic (Theragran) 1 tab DAILY PO Last administered on 08:22; Admin Dose 1 TAB; Start 03/17/17 at 09:00 Nystatin (Nystatin Susp) 5 ml TID PO Last administered on 03/21/17 13:01; Admin Dose 5 ML; Start 03/16/17 at 21:00 Senna/Docusate Sodium (Senokot-S) 1 tab BID PO Last administered on 03/20/17 21 :00; Admin Dose 1 TAB; Start 03/16/17 at 21:00 Sertraline HCl (Zoloft) 25 mg DAILY PO Last administered on 03/21/17 08:22; Admin Dose 25 MG; Start 03/17/17 at 09:00 Cholecalciferol (Vitamin D) 1,200 units DAILY PO Last administered on 03/21/17 08:23; Admin Dose 1,200 UNITS; Start 03/17/17 at 09:00 Famotidine (Pepcid) 20 mg Q12 PO Last administered on 03/21/17 08:22; Admin Dose 20 MG; Start 03/17/17 at 21:00 Acetaminophen/ Hydrocodone Bitart ([place] (5/325)) 1 tab Q4H PRN PO PAIN LEVEL 4 -6 Last administered on 03/20/17 21:01; Admin Dose 1 TAB; Start 03/17/17 at 17: 30 Methylprednisolone Sodium Succinate (Solu-Medrol) 40 mg Q6 IV Last administered on 03/21/17 11:23; Admin Dose 40 MG; Start 03/18/17 at 18:00 Collagenase (Santyl) 1 applic DAILY TOP Last administered on 03/20/17 09:00; Admin Dose 1 APPLIC; Start 03/19/17 at 11:00 Alprazolam (Xanax) 0.25 mg Q8 PO Last administered on 03/21/17 11:22; Admin Dose 0.25 MG; Start 03/21/17 at 11:30 POLO HOOKS Mar 21, 2017 14:04
[2017-03-21] MEDS: COLLAGENASE 30 GM TUBE TOP SCH (15:51)
--- NOTE | 2017-03-21 15:57 | PN ---
Date/Time of Note Date/Time of Note DATE: 03/21/17 TIME: 15:56 Assessment/Plan VTE Prophylaxis VTE Prophylaxis Intervention: other Lines/Catheters IV C[facility]ter Type [facility]from [facility] Urinary Cath still in place: No Assessment/Plan Assessment/Plan 1. Hypoxemic respiratory insufficiency secondary to acute exacerbation of idiopathic pulmonary fibrosis. Dr. Santamaria is following in pulmonology consultation. Continue Vapotherm via nasal cannula. Continue steroids. 2. Severe aortic stenosis per echocardiogram. Dr. Pereira is following patient in cardiology consultation. 3. Gastroesophageal reflux disease. Continue Protonix. 4. Anxiety. Continue Xanax p.r.n. Further recommendations based on clinical course. Plan of care discussed with Dr. Cobian. [facility] transfer pending. Subjective 24 Hr Interval Summary Free Text/Dictation resting, seems comfortable, afebrile, no new events reported overnight. dw staff Respiratory: shortness of breath Cardiovascular: no complaints Gastrointestinal: no complaints Musculoskeletal: no complaints Skin: no complaints Exam/Review of Systems Vital Signs Vitals Vital Signs Date Time Temp Pulse Resp B/P Pulse Ox O2 Delivery O2 Flow Rate FiO2 03/21/17 15:32 97.9 121 18 109/73 90 03/21/17 10:13 100 Intake and Output 03/20/17 03/20/17 03/21/17 15:00 23:00 07:00 Intake Total 650 ml Output Total 300 ml Balance 350 ml Exam Constitutional: alert, well developed Respiratory: diminished breath sounds Cardiovascular: nl pulses, regular rate and rhythm Gastrointestinal: non-tender, soft Musculoskeletal: nl extremities to inspection Extremities: normal pulses Neurological: nl mental status, nl speech Skin: nl turgor Lymph: nontender Results Result Diagram: 03/21/17 0615 03/21/17 0615 Results 24 hrs Laboratory Tests Test 03/20/17 17:12 03/20/17 20:48 03/21/17 06:15 03/21/17 07:46 Bedside Glucose 108 121 102 White Blood Count 12.8 H Red Blood Count 4.12 L Hemoglobin 12.9 L Hematocrit 39.2 L Mean Corpuscular Volume 95.1 Mean Corpuscular Hemoglobin 31.3 Mean Corpuscular Hemoglobin Concent 32.9 Red Cell Distribution Width 13.1 Platelet Count 191 Mean Platelet Volume 9.8 Neutrophils % 90.6 H Lymphocytes % 4.1 L Monocytes % 3.0 Eosinophils % 0.0 Basophils % 0.2 Nucleated Red Blood Cells % 0.0 Neutrophils # 11.6 H Lymphocytes # 0.5 L Monocytes # 0.4 Eosinophils # 0.0 Basophils # 0.0 Nucleated Red Blood Cells # 0.0 Sodium Level 135 Potassium Level 4.5 Chloride Level 95 L Carbon Dioxide Level 36 H Anion Gap 9 Blood Urea Nitrogen 22 H Creatinine 0.45 L Glucose Level 97 Calcium Level 8.7 Test 03/21/17 11:26 Bedside Glucose 180 Medications Medications Current Medications Ondansetron HCl (Zofran Inj) 4 mg Q6H PRN IV NAUSEA AND/OR VOMITING; Start at 13:30 Acetaminophen (Tylenol Liquid) 650 mg Q6H PRN PO PAIN LEVEL 1-3 OR FEVER Last administered on 03/17/17 20:33; Admin Dose 650 MG; Start 03/15/17 at 13:30 Morphine Sulfate (morphine) 2 mg Q4H PRN IV PAIN LEVEL 7-10; Start 03/15/17 at 13:30 Enoxaparin Sodium (Lovenox) 40 mg DAILY SC Last administered on 03/21/17 08:30 ; Admin Dose 40 MG; Start 03/16/17 at 09:00 Miscellaneous Information 1 ea NOTE XX ; Start 03/15/17 at 16:00 Glucose (Glutose) 15 gm Q15M PRN PO DECREASED GLUCOSE; Start 03/15/17 at 16:00 Glucose (Glutose) 22.5 gm Q15M PRN PO DECREASED GLUCOSE; Start 03/15/17 at 16: 00 Dextrose (D50w Syringe) 25 ml Q15M PRN IV DECREASED GLUCOSE; Start 03/15/17 at 16:00 Dextrose (D50w Syringe) 50 ml Q15M PRN IV DECREASED GLUCOSE; Start 03/15/17 at 16:00 Glucagon (Glucagen) 1 mg Q15M PRN IM DECREASED GLUCOSE; Start 03/15/17 at 16:00 Glucose (Glutose) 15 gm Q15M PRN BUCCAL DECREASED GLUCOSE; Start 03/15/17 at 16 :00 [facility] This patient meade... PRN PRN XX WOUND CARE; Start 03/15/17 at 19:30 Ascorbic Acid (Vitamin C) 500 mg BID PO Last administered on 03/21/17 08:22; Admin Dose 500 MG; Start 03/16/17 at 21:00 Aspirin (Aspirin) 81 mg DAILY PO Last administered on 03/21/17 08:23; Admin Dose 81 MG; Start 03/17/17 at 09:00 Atorvastatin Calcium (Lipitor) 10 mg HS PO Last administered on 03/20/17 21:00 ; Admin Dose 10 MG; Start 03/16/17 at 21:00 Bisacodyl (Dulcolax Supp) 10 mg DAILY PRN [place] CONSTIPATION; Start 03/16/17 at 15 :30 Buspirone HCl (Buspar) 7.5 mg TID PO Last administered on 03/21/17 13:01; Admin Dose 7.5 MG; Start 03/16/17 at 21:00 Calcium Carbonate (Tums) 1,000 mg Q4H PRN PO indigestion; Start 03/16/17 at 15: 30 Calcium/Vitamin D (Oyster Shell/ Vit-D (500/200)) 1 tab BID PO Last administered on 03/21/17 08:22; Admin Dose 1 TAB; Start 03/16/17 at 21:00 Clonidine (Catapres) 0.1 mg Q6H PRN PO ELEVATED SYSTOLIC BP; Start 03/16/17 at 15:30 Docusate Sodium (Colace) 200 mg BID PO Last administered on 03/17/17 08:30; Admin Dose 200 MG; Start 03/16/17 at 21:00 Fluticasone Propionate (Flonase 0.05% Nasal) 2 spray BID NASAL Last administered on 03/21/17 08:21; Admin Dose 2 SPRAY; Start 03/16/17 at 21:00 Guaifenesin/ Dextromethorphan (Mucinex Dm) 1 tab BID PO Last administered on 08:22; Admin Dose 1 TAB; Start 03/16/17 at 21:00 Lactobacillus Acidophilus/ Rhamnosus (Culturelle) 1 cap BID PO Last administered on 03/21/17 08:23; Admin Dose 1 CAP; Start 03/16/17 at 21:00 Multivitamins Therapeutic (Theragran) 1 tab DAILY PO Last administered on 08:22; Admin Dose 1 TAB; Start 03/17/17 at 09:00 Nystatin (Nystatin Susp) 5 ml TID PO Last administered on 03/21/17 13:01; Admin Dose 5 ML; Start 03/16/17 at 21:00 Senna/Docusate Sodium (Senokot-S) 1 tab BID PO Last administered on 03/20/17 21 :00; Admin Dose 1 TAB; Start 03/16/17 at 21:00 Sertraline HCl (Zoloft) 25 mg DAILY PO Last administered on 03/21/17 08:22; Admin Dose 25 MG; Start 03/17/17 at 09:00 Cholecalciferol (Vitamin D) 1,200 units DAILY PO Last administered on 03/21/17 08:23; Admin Dose 1,200 UNITS; Start 03/17/17 at 09:00 Famotidine (Pepcid) 20 mg Q12 PO Last administered on 03/21/17 08:22; Admin Dose 20 MG; Start 03/17/17 at 21:00 Acetaminophen/ Hydrocodone Bitart ([place] (5/325)) 1 tab Q4H PRN PO PAIN LEVEL 4 -6 Last administered on 03/20/17 21:01; Admin Dose 1 TAB; Start 03/17/17 at 17: 30 Methylprednisolone Sodium Succinate (Solu-Medrol) 40 mg Q6 IV Last administered on 03/21/17 11:23; Admin Dose 40 MG; Start 03/18/17 at 18:00 Collagenase (Santyl) 1 applic DAILY TOP Last administered on 03/21/17 15:51; Admin Dose 1 APPLIC; Start 03/19/17 at 11:00 Alprazolam (Xanax) 0.25 mg Q8 PO Last administered on 03/21/17 11:22; Admin Dose 0.25 MG; Start 03/21/17 at 11:30 MAXIMUS SANCHEZ Mar 21, 2017 15:57
[2017-03-21] MEDS: HYDROCODONE/APAP (5/325) TAB PO PRN (21:25)
[2017-03-21] MEDS: ATORVASTATIN 10 MG TAB PO SCH (21:25)
[2017-03-22] VITALS (11 sets, daily range): BP systolic 107–117; BP diastolic 46–79; PULSE 73–123; RESP 18–20
[2017-03-22] MEDS: METHYLPREDNISOLONE 40 MG INJ IV SCH ×3 (05:49→17:45)
[2017-03-22] MEDS: ALPRAZOLAM 0.25 MG TAB PO SCH ×2 (05:51→13:21)
[2017-03-22 07:08] LABS: ADD SCAN DIFF NO
[2017-03-22 07:13] LABS: BASOPHILS % 0.1 % (0.0-2.0); HEMATOCRIT 39.5 % (42.0-52.0); HEMOGLOBIN 13.1 g/dl (14.0-18.0); LYMPHOCYTES # 0.7 10^3/ul (0.8-2.9); LYMPHOCYTES % 4.2 % (15.0-51.0); MEAN CORPUSCULAR HEMOGLOBIN 31.7 pg (29.0-33.0); MEAN CORPUSCULAR HGB CONC 33.2 g/dl (32.0-37.0); MEAN CORPUSCULAR VOLUME 95.6 fl (82.0-101.0); MEAN PLATELET VOLUME 10.2 fl (7.4-10.4); MONOCYTE # 0.4 10^3/ul (0.3-0.9); MONOCYTES % 2.8 % (0.0-11.0); NEUTROPHIL # 14.4 10^3/ul (1.6-7.5); NEUTROPHILS % 90.8 % (39.0-77.0); PLATELET COUNT 172 10^3/UL (140-415); RED BLOOD COUNT 4.13 10^6/ul (4.70-6.10); RED CELL DISTRIBUTION WIDTH 13.2 % (11.5-14.5); WHITE BLOOD COUNT 15.9 10^3/ul (4.8-10.8)
[2017-03-22] MEDS: DICYCLOMINE 10 MG CAP PO SCH ×4 (07:25→21:30)
[2017-03-22] MEDS: INSULIN ASPART [NOVOLOG] 3 ML PEN SC SCH ×4 (07:55→21:00)
[2017-03-22 07:57] LABS: CALCIUM 8.5 mg/dl (8.4-10.2); CREATININE 0.42 mg/dl (0.61-1.24); POTASSIUM 4.5 mmol/L (3.5-5.1)
[2017-03-22] MEDS: LACTOBACILLUS RHAMNOSUS CAP PO SCH ×2 (09:00→21:29)
[2017-03-22] MEDS: CHOLECALCIFEROL 400 UNITS TAB PO SCH (09:00)
[2017-03-22] MEDS: DOCUSATE SODIUM 100 MG CAP PO SCH ×2 (09:00→21:00)
[2017-03-22] MEDS: NYSTATIN SUSP 5 ML CUP PO SCH ×3 (09:00→21:28)
[2017-03-22] MEDS: BUSPIRONE 5 MG TAB PO SCH ×3 (09:00→21:29)
[2017-03-22] MEDS: FLUTICASONE 0.05% 16 GM NAS SPRAY NASAL SCH ×2 (09:00→21:28)
[2017-03-22] MEDS: COLLAGENASE 30 GM TUBE TOP SCH (09:00)
[2017-03-22] MEDS: CALCIUM/VITAMIN D (500/200) TAB PO SCH ×2 (09:00→21:30)
[2017-03-22] MEDS: ASCORBIC ACID 500 MG TAB PO SCH ×2 (09:00→21:29)
[2017-03-22] MEDS: SENNA/DOCUSATE NA (8.6MG/50MG) TAB PO SCH ×2 (09:00→21:00)
[2017-03-22] MEDS: MULTIVITAMINS THERAPEUTIC TAB PO SCH (09:00)
[2017-03-22] MEDS: ASPIRIN 81 MG TAB PO SCH (09:00)
[2017-03-22] MEDS: FAMOTIDINE 20 MG TAB PO SCH ×2 (09:00→21:30)
[2017-03-22] MEDS: ENOXAPARIN 40 MG/0.4 ML SYG SC SCH (10:19)
[2017-03-22] MEDS: SERTRALINE 50 MG TAB PO SCH (10:27)
[2017-03-22] MEDS: GUAIFENESIN/DM (SR) TAB PO SCH ×2 (10:27→21:29)
--- NOTE | 2017-03-22 11:33 | CONS ---
Date/Time of Note Date/Time of Note DATE: 03/22/17 TIME: 11:31 Assessment/Plan Assessment/Plan Additional Assessment/Plan Assessment recommendations; next 1. Patient admitted for exacerbation of fibrosis with slow clinical improvement. 2. History of aortic stenosis. 3. Compensated CHF. 4. Hypoxemia, patient currently on high flow FiO2 via nasal cannula with O2 saturation of around 91%. Continue current supportive care. Patient likely will transfer to acute pulmonary rehab sometime soon. Overall prognosis remains very poor. Consultation Date/Type/Reason Admit Date/Time March 15, 2017 at 12:55 Type of Consultation: Pulmonary/critical care 24 HR Interval Summary Free Text/Dictation Patient condition stable. Patient reports shortness of breath at night. Denies any wheezing, chest pain. Complains of mild chest congestion. General exam; elderly man, awake alert currently in no distress. Awake and alert. Exam/Review of Systems Vital Signs Vitals Vital Signs Date Time Temp Pulse Resp B/P Pulse Ox O2 Delivery O2 Flow Rate FiO2 03/22/17 11:21 97.8 89 18 116/79 95 03/22/17 05:22 100 Intake and Output 03/21/17 03/21/17 03/22/17 15:00 23:00 07:00 Intake Total 600 ml 1080 ml 600 ml Output Total 250 ml 450 ml 700 ml Balance 350 ml 630 ml -100 ml Exam HEENT examination; supple neck, no JVD. No lymphadenopathy. Midline trachea. No thyromegaly. Patient upper jaw is edentulous and he wears dentures. Patient does have multiple carious teeth and lower jaw. Pupils are midsize and reactive to light. Chest examined; diffuse bilateral crackles in lower lobes. Upper lobes are fairly clear. S1-S2 audible, no murmurs. Regular rhythm. Abdomen examination; soft, nontender. No organomegaly. Bowel sounds audible. Extremity examination; no peripheral edema. Patient has a multiple ecchymosis involving all 4 extremities. 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 Results Result Diagram: 03/22/17 0607 03/22/17 0607 Results 24 hrs Laboratory Tests Test 03/21/17 17:21 03/21/17 21:23 03/22/17 06:07 03/22/17 08:30 Bedside Glucose 132 157 103 White Blood Count 15.9 #H Red Blood Count 4.13 L Hemoglobin 13.1 L Hematocrit 39.5 L Mean Corpuscular Volume 95.6 Mean Corpuscular Hemoglobin 31.7 Mean Corpuscular Hemoglobin Concent 33.2 Red Cell Distribution Width 13.2 Platelet Count 172 Mean Platelet Volume 10.2 Neutrophils % 90.8 H Lymphocytes % 4.2 L Monocytes % 2.8 Eosinophils % 0.0 Basophils % 0.1 Nucleated Red Blood Cells % 0.0 Neutrophils # 14.4 H Lymphocytes # 0.7 L Monocytes # 0.4 Eosinophils # 0.0 Basophils # 0.0 Nucleated Red Blood Cells # 0.0 Sodium Level 137 Potassium Level 4.5 Chloride Level 97 Carbon Dioxide Level 36 H Anion Gap 9 Blood Urea Nitrogen 24 H Creatinine 0.42 L Glucose Level 101 Calcium Level 8.5 Medications Medications Current Medications Ondansetron HCl (Zofran Inj) 4 mg Q6H PRN IV NAUSEA AND/OR VOMITING; Start at 13:30 Acetaminophen (Tylenol Liquid) 650 mg Q6H PRN PO PAIN LEVEL 1-3 OR FEVER Last administered on 03/17/17 20:33; Admin Dose 650 MG; Start 03/15/17 at 13:30 Morphine Sulfate (morphine) 2 mg Q4H PRN IV PAIN LEVEL 7-10; Start 03/15/17 at 13:30 Enoxaparin Sodium (Lovenox) 40 mg DAILY SC Last administered on 03/22/17 10:19 ; Admin Dose 40 MG; Start 03/16/17 at 09:00 Miscellaneous Information 1 ea NOTE XX ; Start 03/15/17 at 16:00 Glucose (Glutose) 15 gm Q15M PRN PO DECREASED GLUCOSE; Start 03/15/17 at 16:00 Glucose (Glutose) 22.5 gm Q15M PRN PO DECREASED GLUCOSE; Start 03/15/17 at 16: 00 Dextrose (D50w Syringe) 25 ml Q15M PRN IV DECREASED GLUCOSE; Start 03/15/17 at 16:00 Dextrose (D50w Syringe) 50 ml Q15M PRN IV DECREASED GLUCOSE; Start 03/15/17 at 16:00 Glucagon (Glucagen) 1 mg Q15M PRN IM DECREASED GLUCOSE; Start 03/15/17 at 16:00 Glucose (Glutose) 15 gm Q15M PRN BUCCAL DECREASED GLUCOSE; Start 03/15/17 at 16 :00 Miscellaneous Information (Pending Santyl Order For Wound Care) This patient meade... PRN PRN XX WOUND CARE; Start 03/15/17 at 19:30 Ascorbic Acid (Vitamin C) 500 mg BID PO Last administered on 03/22/17 09:00; Admin Dose 500 MG; Start 03/16/17 at 21:00 Aspirin (Aspirin) 81 mg DAILY PO Last administered on 03/22/17 09:00; Admin Dose 81 MG; Start 03/17/17 at 09:00 Atorvastatin Calcium (Lipitor) 10 mg HS PO Last administered on 03/21/17 21:25 ; Admin Dose 10 MG; Start 03/16/17 at 21:00 Bisacodyl (Dulcolax Supp) 10 mg DAILY PRN [place] CONSTIPATION; Start 03/16/17 at 15 :30 Buspirone HCl (Buspar) 7.5 mg TID PO Last administered on 03/22/17 09:00; Admin Dose 7.5 MG; Start 03/16/17 at 21:00 Calcium Carbonate (Tums) 1,000 mg Q4H PRN PO indigestion; Start 03/16/17 at 15: 30 Calcium/Vitamin D (Oyster Shell/ Vit-D (500/200)) 1 tab BID PO Last administered on 03/22/17 09:00; Admin Dose 1 TAB; Start 03/16/17 at 21:00 Clonidine (Catapres) 0.1 mg Q6H PRN PO ELEVATED SYSTOLIC BP; Start 03/16/17 at 15:30 Docusate Sodium (Colace) 200 mg BID PO Last administered on 03/17/17 08:30; Admin Dose 200 MG; Start 03/16/17 at 21:00 Fluticasone Propionate (Flonase 0.05% Nasal) 2 spray BID NASAL Last administered on 03/22/17 09:00; Admin Dose 2 SPRAY; Start 03/16/17 at 21:00 Guaifenesin/ Dextromethorphan (Mucinex Dm) 1 tab BID PO Last administered on 10:27; Admin Dose 1 TAB; Start 03/16/17 at 21:00 Lactobacillus Acidophilus/ Rhamnosus (Culturelle) 1 cap BID PO Last administered on 03/22/17 09:00; Admin Dose 1 CAP; Start 03/16/17 at 21:00 Multivitamins Therapeutic (Theragran) 1 tab DAILY PO Last administered on 09:00; Admin Dose 1 TAB; Start 03/17/17 at 09:00 Nystatin (Nystatin Susp) 5 ml TID PO Last administered on 03/22/17 09:00; Admin Dose 5 ML; Start 03/16/17 at 21:00 Senna/Docusate Sodium (Senokot-S) 1 tab BID PO Last administered on 03/21/17 21 :24; Admin Dose 1 TAB; Start 03/16/17 at 21:00 Sertraline HCl (Zoloft) 25 mg DAILY PO Last administered on 03/22/17 10:27; Admin Dose 25 MG; Start 03/17/17 at 09:00 Cholecalciferol (Vitamin D) 1,200 units DAILY PO Last administered on 03/22/17 09:00; Admin Dose 1,200 UNITS; Start 03/17/17 at 09:00 Famotidine (Pepcid) 20 mg Q12 PO Last administered on 03/22/17 09:00; Admin Dose 20 MG; Start 03/17/17 at 21:00 Acetaminophen/ Hydrocodone Bitart ([place] (5/325)) 1 tab Q4H PRN PO PAIN LEVEL 4 -6 Last administered on 03/21/17 21:25; Admin Dose 1 TAB; Start 03/17/17 at 17: 30 Methylprednisolone Sodium Succinate (Solu-Medrol) 40 mg Q6 IV Last administered on 03/22/17 05:49; Admin Dose 40 MG; Start 03/18/17 at 18:00 Collagenase (Santyl) 1 applic DAILY TOP Last administered on 03/22/17 09:00; Admin Dose 1 APPLIC; Start 03/19/17 at 11:00 Alprazolam (Xanax) 0.25 mg Q8 PO Last administered on 03/22/17 05:51; Admin Dose 0.25 MG; Start 03/21/17 at 11:30 POLO HOOKS Mar 22, 2017 11:33
[2017-03-22] MEDS: ALBUTEROL/IPRATROPIUM (NEB) 3 ML AMP NEB PRN ×3 (12:11→22:11)
[2017-03-22] MEDS ORDERED: ALPRAZOLAM 0.25 MG TAB PO ONE (16:00)
--- NOTE | 2017-03-22 17:30 | PN ---
Date/Time of Note Date/Time of Note DATE: 03/22/17 TIME: 17:22 Assessment/Plan VTE Prophylaxis VTE Prophylaxis Intervention: SCD's Lines/Catheters [facility]from [facility] Lock Urinary Cath still in place: No Assessment/Plan Chief Complaint/Hosp Course Patient is continued on high flow oxygen with oxygen saturation being in the 90s. ASSESSMENT AND PLAN: - Hypoxemic respiratory insufficiency secondary to acute exacerbation of idiopathic pulmonary fibrosis. Dr. Santamaria is following in pulmonology consultation. Continue Vapotherm via nasal cannula. Continue steroids. - Severe aortic stenosis per echocardiogram. Dr. Pereira is following patient in cardiology consultation. - Gastroesophageal reflux disease. Continue Protonix. - Anxiety. Continue Xanax p.r.n. Further recommendations based on clinical course. Plan of care discussed with Dr. Cobian. Problems: Exam/Review of Systems Vital Signs Vitals Vital Signs Date Time Temp Pulse Resp B/P Pulse Ox O2 Delivery O2 Flow Rate FiO2 03/22/17 16:21 123 03/22/17 15:32 98.3 20 111/78 92 03/22/17 15:03 100 Intake and Output 03/21/17 03/21/17 03/22/17 15:00 23:00 07:00 Intake Total 600 ml 1080 ml 600 ml Output Total 250 ml 450 ml 700 ml Balance 350 ml 630 ml -100 ml Exam Constitutional: alert, oriented Head: atraumatic, normocephalic Neck: supple Respiratory: diminished breath sounds Cardiovascular: nl pulses Gastrointestinal: non-tender, soft Musculoskeletal: nl extremities to inspection Extremities: normal pulses Results Result Diagram: 03/22/17 0607 03/22/17 0607 Results 24 hrs Laboratory Tests Test 03/21/17 21:23 03/22/17 06:07 03/22/17 08:30 03/22/17 12:40 Bedside Glucose 157 103 166 White Blood Count 15.9 #H Red Blood Count 4.13 L Hemoglobin 13.1 L Hematocrit 39.5 L Mean Corpuscular Volume 95.6 Mean Corpuscular Hemoglobin 31.7 Mean Corpuscular Hemoglobin Concent 33.2 Red Cell Distribution Width 13.2 Platelet Count 172 Mean Platelet Volume 10.2 Neutrophils % 90.8 H Lymphocytes % 4.2 L Monocytes % 2.8 Eosinophils % 0.0 Basophils % 0.1 Nucleated Red Blood Cells % 0.0 Neutrophils # 14.4 H Lymphocytes # 0.7 L Monocytes # 0.4 Eosinophils # 0.0 Basophils # 0.0 Nucleated Red Blood Cells # 0.0 Sodium Level 137 Potassium Level 4.5 Chloride Level 97 Carbon Dioxide Level 36 H Anion Gap 9 Blood Urea Nitrogen 24 H Creatinine 0.42 L Glucose Level 101 Calcium Level 8.5 Medications Medications Current Medications Ondansetron HCl (Zofran Inj) 4 mg Q6H PRN IV NAUSEA AND/OR VOMITING; Start at 13:30 Acetaminophen (Tylenol Liquid) 650 mg Q6H PRN PO PAIN LEVEL 1-3 OR FEVER Last administered on 03/17/17 20:33; Admin Dose 650 MG; Start 03/15/17 at 13:30 Morphine Sulfate (morphine) 2 mg Q4H PRN IV PAIN LEVEL 7-10; Start 03/15/17 at 13:30 Enoxaparin Sodium (Lovenox) 40 mg DAILY SC Last administered on 03/22/17 10:19 ; Admin Dose 40 MG; Start 03/16/17 at 09:00 Miscellaneous Information 1 ea NOTE XX ; Start 03/15/17 at 16:00 Glucose (Glutose) 15 gm Q15M PRN PO DECREASED GLUCOSE; Start 03/15/17 at 16:00 Glucose (Glutose) 22.5 gm Q15M PRN PO DECREASED GLUCOSE; Start 03/15/17 at 16: 00 Dextrose (D50w Syringe) 25 ml Q15M PRN IV DECREASED GLUCOSE; Start 03/15/17 at 16:00 Dextrose (D50w Syringe) 50 ml Q15M PRN IV DECREASED GLUCOSE; Start 03/15/17 at 16:00 Glucagon (Glucagen) 1 mg Q15M PRN IM DECREASED GLUCOSE; Start 03/15/17 at 16:00 Glucose (Glutose) 15 gm Q15M PRN BUCCAL DECREASED GLUCOSE; Start 03/15/17 at 16 :00 Miscellaneous Information [facility] This patient meade... PRN PRN XX WOUND CARE; Start 03/15/17 at 19:30 Ascorbic Acid (Vitamin C) 500 mg BID PO Last administered on 03/22/17 09:00; Admin Dose 500 MG; Start 03/16/17 at 21:00 Aspirin (Aspirin) 81 mg DAILY PO Last administered on 03/22/17 09:00; Admin Dose 81 MG; Start 03/17/17 at 09:00 Atorvastatin Calcium (Lipitor) 10 mg HS PO Last administered on 03/21/17 21:25 ; Admin Dose 10 MG; Start 03/16/17 at 21:00 Bisacodyl (Dulcolax Supp) 10 mg DAILY PRN [place] CONSTIPATION; Start 03/16/17 at 15 :30 Buspirone HCl (Buspar) 7.5 mg TID PO Last administered on 03/22/17 13:20; Admin Dose 7.5 MG; Start 03/16/17 at 21:00 Calcium Carbonate (Tums) 1,000 mg Q4H PRN PO indigestion; Start 03/16/17 at 15: 30 Calcium/Vitamin D (Oyster Shell/ Vit-D (500/200)) 1 tab BID PO Last administered on 03/22/17 09:00; Admin Dose 1 TAB; Start 03/16/17 at 21:00 Clonidine (Catapres) 0.1 mg Q6H PRN PO ELEVATED SYSTOLIC BP; Start 03/16/17 at 15:30 Docusate Sodium (Colace) 200 mg BID PO Last administered on 03/17/17 08:30; Admin Dose 200 MG; Start 03/16/17 at 21:00 Fluticasone Propionate (Flonase 0.05% Nasal) 2 spray BID NASAL Last administered on 03/22/17 09:00; Admin Dose 2 SPRAY; Start 03/16/17 at 21:00 Guaifenesin/ Dextromethorphan (Mucinex Dm) 1 tab BID PO Last administered on 10:27; Admin Dose 1 TAB; Start 03/16/17 at 21:00 Lactobacillus Acidophilus/ Rhamnosus (Culturelle) 1 cap BID PO Last administered on 03/22/17 09:00; Admin Dose 1 CAP; Start 03/16/17 at 21:00 Multivitamins Therapeutic (Theragran) 1 tab DAILY PO Last administered on 09:00; Admin Dose 1 TAB; Start 03/17/17 at 09:00 Nystatin (Nystatin Susp) 5 ml TID PO Last administered on 03/22/17 13:20; Admin Dose 5 ML; Start 03/16/17 at 21:00 Senna/Docusate Sodium (Senokot-S) 1 tab BID PO Last administered on 03/21/17 21 :24; Admin Dose 1 TAB; Start 03/16/17 at 21:00 Sertraline HCl (Zoloft) 25 mg DAILY PO Last administered on 03/22/17 10:27; Admin Dose 25 MG; Start 03/17/17 at 09:00 Cholecalciferol (Vitamin D) 1,200 units DAILY PO Last administered on 03/22/17 09:00; Admin Dose 1,200 UNITS; Start 03/17/17 at 09:00 Famotidine (Pepcid) 20 mg Q12 PO Last administered on 03/22/17 09:00; Admin Dose 20 MG; Start 03/17/17 at 21:00 Acetaminophen/ Hydrocodone Bitart ([place] (5/325)) 1 tab Q4H PRN PO PAIN LEVEL 4 -6 Last administered on 03/21/17 21:25; Admin Dose 1 TAB; Start 03/17/17 at 17: 30 Methylprednisolone Sodium Succinate (Solu-Medrol) 40 mg Q6 IV Last administered on 03/22/17 12:43; Admin Dose 40 MG; Start 03/18/17 at 18:00 Collagenase (Santyl) 1 applic DAILY TOP Last administered on 03/22/17 09:00; Admin Dose 1 APPLIC; Start 03/19/17 at 11:00 Alprazolam (Xanax) 0.5 mg Q8 PO ; Start 03/22/17 at 22:00 CHRISTIANA HARDIN Mar 22, 2017 17:30
--- NOTE | 2017-03-22 18:06 | PN ---
DATE: 03/22/2017 CARDIOLOGY FOLLOWUP SUBJECTIVE: Discussed with the staff and the patient's daughter. Rhythm strip was reviewed. The p atient remains in sinus rhythm, sinus tachycardia. No chest pain or pressure. No palpitation. Guerrero s have increasing shortness of breath, though. MEDICATIONS: Reviewed as per medication reconciliation, personally reviewed. PHYSICAL EXAMINATION: VITAL SIGNS: Temperature 98.3, heart rate of 120, blood pressure 111/78, respiration rate of 28, sa turating 92%. HEENT: Normocephalic, atraumatic. Appears in mild to moderate respiratory distress. Tachypneic. Pupils equal and round. CARDIOVASCULAR: Tachycardic, systolic ejection murmur radiating to carotids, grade III/. PULMONARY: Anteriorly with no wheezes, mild rhonchi. GASTROINTESTINAL: Soft, nontender. EXTREMITIES: No significant lower extremity edema. NEUROLOGIC: Awake, alert, oriented x3. PSYCHIATRIC: Calm and pleasant. There are multiple ecchymoses. LABORATORY: WBC of 15.9, hemoglobin 13.1, platelets of 172. Sodium 137, potassium 4.5, BUN of 24, creatinine 0.42, glucose 101. ASSESSMENT AND PLAN: 1. Aortic stenosis appeared to be severe based on echo. 2. Congestive heart failure secondary to above, currently appeared to be euvolemic. 3. Severe hypoxemia and hypercapnic respiratory failure. 4. Pulmonary fibrosis. 5. Hypertension, under good control. 6. Abnormal EKG due to above. RECOMMENDATIONS: Follow up with the pulmonary recommendations regarding the pulmonary care. Diures is will be given as needed. Solu-Medrol will be adjusted as per pulmonary. Blood pressure currentl y remains stable off of any medication. We will continue to monitor. Statin will be continued as t olerated. Aspirin will be continued on monitor closely. Dictated By: JIAN RESTREPO MD AV/NTS Conf#: [id number] DID#: [id number] CC: DE BENSON MD;*EndCC*
[2017-03-22] MEDS: ATORVASTATIN 10 MG TAB PO SCH (21:28)
[2017-03-22] MEDS: HYDROCODONE/APAP (5/325) TAB PO PRN (21:30)
[2017-03-22] MEDS: ALPRAZOLAM 0.5 MG TAB PO SCH (22:00)
[2017-03-23] VITALS (13 sets, daily range): BP systolic 110–133; BP diastolic 70–90; PULSE 66–124; RESP 18–20
[2017-03-23] MEDS: METHYLPREDNISOLONE 40 MG INJ IV SCH ×4 (00:58→17:52)
[2017-03-23] MEDS: ALPRAZOLAM 0.5 MG TAB PO SCH ×3 (05:45→22:00)
[2017-03-23 07:35] LABS: ADD SCAN DIFF NO
[2017-03-23 07:36] LABS: ABNORMAL IP MESSAGE 1; HEMATOCRIT 40.1 % (42.0-52.0); HEMOGLOBIN 12.9 g/dl (14.0-18.0); LYMPHOCYTES # 0.6 10^3/ul (0.8-2.9); LYMPHOCYTES % 3.8 % (15.0-51.0); MEAN CORPUSCULAR HEMOGLOBIN 31.4 pg (29.0-33.0); MEAN CORPUSCULAR HGB CONC 32.2 g/dl (32.0-37.0); MEAN CORPUSCULAR VOLUME 97.6 fl (82.0-101.0); MEAN PLATELET VOLUME 10.6 fl (7.4-10.4); MONOCYTE # 0.4 10^3/ul (0.3-0.9); MONOCYTES % 2.7 % (0.0-11.0); NEUTROPHIL # 13.8 10^3/ul (1.6-7.5); NEUTROPHILS % 91.7 % (39.0-77.0); PLATELET COUNT 163 10^3/UL (140-415); RED BLOOD COUNT 4.11 10^6/ul (4.70-6.10); RED CELL DISTRIBUTION WIDTH 13.6 % (11.5-14.5)
[2017-03-23] MEDS: INSULIN ASPART [NOVOLOG] 3 ML PEN SC SCH ×4 (07:55→21:00)
[2017-03-23 08:07] LABS: CALCIUM 8.3 mg/dl (8.4-10.2); CREATININE 0.46 mg/dl (0.61-1.24); POTASSIUM 4.8 mmol/L (3.5-5.1)
[2017-03-23] MEDS: DICYCLOMINE 10 MG CAP PO SCH ×4 (08:10→21:03)
[2017-03-23] MEDS: DOCUSATE SODIUM 100 MG CAP PO SCH ×2 (09:00→21:02)
[2017-03-23] MEDS: FLUTICASONE 0.05% 16 GM NAS SPRAY NASAL SCH ×2 (09:00→21:15)
[2017-03-23] MEDS: SENNA/DOCUSATE NA (8.6MG/50MG) TAB PO SCH ×2 (09:00→21:02)
[2017-03-23] MEDS: ALBUTEROL/IPRATROPIUM (NEB) 3 ML AMP NEB PRN ×4 (09:48→19:28)
[2017-03-23] MEDS: ASCORBIC ACID 500 MG TAB PO SCH ×2 (09:55→21:03)
[2017-03-23] MEDS: NYSTATIN SUSP 5 ML CUP PO SCH ×3 (09:55→21:00)
[2017-03-23] MEDS: LACTOBACILLUS RHAMNOSUS CAP PO SCH ×2 (09:56→21:02)
[2017-03-23] MEDS: FAMOTIDINE 20 MG TAB PO SCH ×2 (09:56→21:02)
[2017-03-23] MEDS: ASPIRIN 81 MG TAB PO SCH (09:56)
[2017-03-23] MEDS: CHOLECALCIFEROL 400 UNITS TAB PO SCH (09:56)
[2017-03-23] MEDS: BUSPIRONE 5 MG TAB PO SCH ×3 (09:56→20:59)
[2017-03-23] MEDS: MULTIVITAMINS THERAPEUTIC TAB PO SCH (09:56)
[2017-03-23] MEDS: GUAIFENESIN/DM (SR) TAB PO SCH ×2 (09:57→21:02)
[2017-03-23] MEDS: SERTRALINE 50 MG TAB PO SCH (10:00)
[2017-03-23] MEDS: CALCIUM/VITAMIN D (500/200) TAB PO SCH ×2 (10:03→21:03)
[2017-03-23] MEDS: ENOXAPARIN 40 MG/0.4 ML SYG SC SCH (10:08)
[2017-03-23] MEDS: COLLAGENASE 30 GM TUBE TOP SCH (10:11)
--- NOTE | 2017-03-23 13:00 | CONS ---
Date/Time of Note Date/Time of Note DATE: 03/23/17 TIME: 12:57 Consult Date/Type/Reason Admit Date/Time March 15, 2017 at 12:55 Type of Consultation: Pulmonary/critical care Subjective Patient continues high flow oxygen remains awake and alert dyspnea on minimal exertion. Objective Vital Signs Date Time Temp Pulse Resp B/P Pulse Ox O2 Delivery O2 Flow Rate FiO2 03/23/17 12:00 115 03/23/17 11:34 98.4 18 117/80 92 03/23/17 09:49 100 Intake and Output 03/22/17 03/22/17 03/23/17 15:00 23:00 07:00 Intake Total 850 ml 700 ml Output Total 800 ml 1000 ml Balance 50 ml -300 ml Exam GENERAL: Elderly-appearing gentleman is comfortable at rest VITAL SIGNS: per chart NECK: Supple. No JVD or lymphadenopathy. CARDIAC EXAM: S1, S2. No added sounds or murmurs. CHEST: Diminished air entry bilaterally bibasilar rales ABDOMEN: Soft, nontender. No guarding or rebound. EXTREMITIES: No cyanosis, clubbing or edema. NEUROLOGIC: Generalized weakness. No focal deficits. Results/Medications Result Diagram: 03/23/1761303/23/1714 Results 24 hrs Laboratory Tests Test 03/22/17 17:44 03/22/17 21:12 03/23/17 06:14 03/23/17 08:28 Bedside Glucose 94 112 130 White Blood Count 15.0 H Red Blood Count 4.11 L Hemoglobin 12.9 L Hematocrit 40.1 L Mean Corpuscular Volume 97.6 Mean Corpuscular Hemoglobin 31.4 Mean Corpuscular Hemoglobin Concent 32.2 Red Cell Distribution Width 13.6 Platelet Count 163 Mean Platelet Volume 10.6 H Neutrophils % 91.7 H Lymphocytes % 3.8 L Monocytes % 2.7 Eosinophils % 0.0 Basophils % 0.0 Nucleated Red Blood Cells % 0.0 Neutrophils # 13.8 H Lymphocytes # 0.6 L Monocytes # 0.4 Eosinophils # 0.0 Basophils # 0.0 Nucleated Red Blood Cells # 0.0 Sodium Level 136 Potassium Level 4.8 Chloride Level 94 L Carbon Dioxide Level 39 H Anion Gap 7 L Blood Urea Nitrogen 21 H Creatinine 0.46 L Glucose Level 96 Calcium Level 8.3 L Medications Current Medications Ondansetron HCl (Zofran Inj) 4 mg Q6H PRN IV NAUSEA AND/OR VOMITING; Start at 13:30 Acetaminophen (Tylenol Liquid) 650 mg Q6H PRN PO PAIN LEVEL 1-3 OR FEVER Last administered on 03/17/17 20:33; Admin Dose 650 MG; Start 03/15/17 at 13:30 Morphine Sulfate (morphine) 2 mg Q4H PRN IV PAIN LEVEL 7-10; Start 03/15/17 at 13:30 Enoxaparin Sodium (Lovenox) 40 mg DAILY SC Last administered on 03/23/17 10:08 ; Admin Dose 40 MG; Start 03/16/17 at 09:00 Miscellaneous Information 1 ea NOTE XX ; Start 03/15/17 at 16:00 Glucose (Glutose) 15 gm Q15M PRN PO DECREASED GLUCOSE; Start 03/15/17 at 16:00 Glucose (Glutose) 22.5 gm Q15M PRN PO DECREASED GLUCOSE; Start 03/15/17 at 16: 00 Dextrose (D50w Syringe) 25 ml Q15M PRN IV DECREASED GLUCOSE; Start 03/15/17 at 16:00 Dextrose (D50w Syringe) 50 ml Q15M PRN IV DECREASED GLUCOSE; Start 03/15/17 at 16:00 Glucagon (Glucagen) 1 mg Q15M PRN IM DECREASED GLUCOSE; Start 03/15/17 at 16:00 Glucose (Glutose) 15 gm Q15M PRN BUCCAL DECREASED GLUCOSE; Start 03/15/17 at 16 :00 Miscellaneous Information (Pending [facility] Order For Wound Care) This patient meade... PRN PRN XX WOUND CARE; Start 03/15/17 at 19:30 Ascorbic Acid (Vitamin C) 500 mg BID PO Last administered on 03/23/17 09:55; Admin Dose 500 MG; Start 03/16/17 at 21:00 Aspirin (Aspirin) 81 mg DAILY PO Last administered on 03/23/17 09:56; Admin Dose 81 MG; Start 03/17/17 at 09:00 Atorvastatin Calcium (Lipitor) 10 mg HS PO Last administered on 03/22/17 21:28 ; Admin Dose 10 MG; Start 03/16/17 at 21:00 Bisacodyl (Dulcolax Supp) 10 mg DAILY PRN [place] CONSTIPATION; Start 03/16/17 at 15 :30 Buspirone HCl (Buspar) 7.5 mg TID PO Last administered on 03/23/17 09:56; Admin Dose 7.5 MG; Start 03/16/17 at 21:00 Calcium Carbonate (Tums) 1,000 mg Q4H PRN PO indigestion; Start 03/16/17 at 15: 30 Calcium/Vitamin D (Oyster Shell/ Vit-D (500/200)) 1 tab BID PO Last administered on 03/23/17 10:03; Admin Dose 1 TAB; Start 03/16/17 at 21:00 Clonidine (Catapres) 0.1 mg Q6H PRN PO ELEVATED SYSTOLIC BP; Start 03/16/17 at 15:30 Docusate Sodium (Colace) 200 mg BID PO Last administered on 03/17/17 08:30; Admin Dose 200 MG; Start 03/16/17 at 21:00 Fluticasone Propionate (Flonase 0.05% Nasal) 2 spray BID NASAL Last administered on 03/22/17 21:28; Admin Dose 2 SPRAY; Start 03/16/17 at 21:00 Guaifenesin/ Dextromethorphan (Mucinex Dm) 1 tab BID PO Last administered on 09:57; Admin Dose 1 TAB; Start 03/16/17 at 21:00 Lactobacillus Acidophilus/ Rhamnosus (Culturelle) 1 cap BID PO Last administered on 03/23/17 09:56; Admin Dose 1 CAP; Start 03/16/17 at 21:00 Multivitamins Therapeutic (Theragran) 1 tab DAILY PO Last administered on 09:56; Admin Dose 1 TAB; Start 03/17/17 at 09:00 Nystatin (Nystatin Susp) 5 ml TID PO Last administered on 03/23/17 09:55; Admin Dose 5 ML; Start 03/16/17 at 21:00 Senna/Docusate Sodium (Senokot-S) 1 tab BID PO Last administered on 03/21/17 21 :24; Admin Dose 1 TAB; Start 03/16/17 at 21:00 Sertraline HCl (Zoloft) 25 mg DAILY PO Last administered on 03/23/17 10:00; Admin Dose 25 MG; Start 03/17/17 at 09:00 Cholecalciferol (Vitamin D) 1,200 units DAILY PO Last administered on 03/23/17 09:56; Admin Dose 1,200 UNITS; Start 03/17/17 at 09:00 Famotidine (Pepcid) 20 mg Q12 PO Last administered on 03/23/17 09:56; Admin Dose 20 MG; Start 03/17/17 at 21:00 Acetaminophen/ Hydrocodone Bitart ([place] (5/325)) 1 tab Q4H PRN PO PAIN LEVEL 4 -6 Last administered on 03/22/17 21:30; Admin Dose 1 TAB; Start 03/17/17 at 17: 30 Methylprednisolone Sodium Succinate (Solu-Medrol) 40 mg Q6 IV Last administered on 03/23/17 05:43; Admin Dose 40 MG; Start 03/18/17 at 18:00 Collagenase (Santyl) 1 applic DAILY TOP Last administered on 03/23/17 10:11; Admin Dose 1 APPLIC; Start 03/19/17 at 11:00 Alprazolam (Xanax) 0.5 mg Q8 PO ; Start 03/22/17 at 22:00 Assessment/Plan Chief Complaint/Hosp Course Assessment 1. Acute on chronic hypoxemic respiratory failure likely secondary to exacerbation of underlying idiopathic pulmonary fibrosis 2. History of gastroesophageal reflux disease 3. Severe aortic stenosis Plan 1. Continue steroids 2. Diuretics as tolerated 3. Supplemental O2 4. Aspiration precautions Prognosis remains guarded. Discussed placement with family this morning. Problems: LIZ FISHER MD, [facility] Mar 23, 2017 12:59
[2017-03-23] MEDS ORDERED: MAGNESIUM HYDROXIDE 30ML CUP PO PRN ×2 (19:00→20:00)
--- NOTE | 2017-03-23 19:44 | PN ---
Date/Time of Note Date/Time of Note DATE: 03/23/17 TIME: 19:41 Assessment/Plan VTE Prophylaxis VTE Prophylaxis Intervention: SCD's Lines/Catheters IV [facility] Type (from [facility] Saline Lock Urinary Cath still in place: No Assessment/Plan Chief Complaint/Hosp Course Patient's continues on high flow oxygen 100% with oxygen saturation being about 90, get anxious at times. ASSESSMENT AND PLAN: - Hypoxemic respiratory insufficiency secondary to acute exacerbation of idiopathic pulmonary fibrosis. Dr. Santamaria is following in pulmonology consultation. Continue Vapotherm via nasal cannula. Continue steroids. - Severe aortic stenosis per echocardiogram. Dr. Pereira is following patient in cardiology consultation. - Gastroesophageal reflux disease. Continue Protonix. - Anxiety. Continue Xanax p.r.n. Plan of care discussed with patient is patient's daughters at the bedside. Plan is to transfer to [facility] when bed is available. Further recommendations based on clinical course. Plan of care discussed with Dr. Cobian. Problems: Exam/Review of Systems Vital Signs Vitals Vital Signs Date Time Temp Pulse Resp B/P Pulse Ox O2 Delivery O2 Flow Rate FiO2 03/23/17 19:29 89 100 03/23/17 19:29 115 26 03/23/17 15:24 98.3 133/83 Intake and Output 03/22/17 03/22/17 03/23/17 15:00 23:00 07:00 Intake Total 850 ml 700 ml Output Total 800 ml 1000 ml Balance 50 ml -300 ml Exam Constitutional: alert, oriented Head: atraumatic, normocephalic Neck: supple Respiratory: diminished breath sounds Cardiovascular: nl pulses Gastrointestinal: non-tender, soft Musculoskeletal: nl extremities to inspection Extremities: normal pulses Results Result Diagram: 03/23/1714 03/23/1714 Results 24 hrs Laboratory Tests Test 03/22/17 21:12 03/23/17 06:14 03/23/17 08:28 03/23/17 13:23 Bedside Glucose 112 130 90 White Blood Count 15.0 H Red Blood Count 4.11 L Hemoglobin 12.9 L Hematocrit 40.1 L Mean Corpuscular Volume 97.6 Mean Corpuscular Hemoglobin 31.4 Mean Corpuscular Hemoglobin Concent 32.2 Red Cell Distribution Width 13.6 Platelet Count 163 Mean Platelet Volume 10.6 H Neutrophils % 91.7 H Lymphocytes % 3.8 L Monocytes % 2.7 Eosinophils % 0.0 Basophils % 0.0 Nucleated Red Blood Cells % 0.0 Neutrophils # 13.8 H Lymphocytes # 0.6 L Monocytes # 0.4 Eosinophils # 0.0 Basophils # 0.0 Nucleated Red Blood Cells # 0.0 Sodium Level 136 Potassium Level 4.8 Chloride Level 94 L Carbon Dioxide Level 39 H Anion Gap 7 L Blood Urea Nitrogen 21 H Creatinine 0.46 L Glucose Level 96 Calcium Level 8.3 L Test 03/23/17 17:50 Bedside Glucose 97 Medications Medications Current Medications Ondansetron HCl (Zofran Inj) 4 mg Q6H PRN IV NAUSEA AND/OR VOMITING; Start at 13:30 Acetaminophen (Tylenol Liquid) 650 mg Q6H PRN PO PAIN LEVEL 1-3 OR FEVER Last administered on 03/17/17 20:33; Admin Dose 650 MG; Start 03/15/17 at 13:30 Morphine Sulfate (morphine) 2 mg Q4H PRN IV PAIN LEVEL 7-10; Start 03/15/17 at 13:30 Enoxaparin Sodium (Lovenox) 40 mg DAILY SC Last administered on 03/23/17 10:08 ; Admin Dose 40 MG; Start 03/16/17 at 09:00 Miscellaneous Information 1 ea NOTE XX ; Start 03/15/17 at 16:00 Glucose (Glutose) 15 gm Q15M PRN PO DECREASED GLUCOSE; Start 03/15/17 at 16:00 Glucose (Glutose) 22.5 gm Q15M PRN PO DECREASED GLUCOSE; Start 03/15/17 at 16: 00 Dextrose (D50w Syringe) 25 ml Q15M PRN IV DECREASED GLUCOSE; Start 03/15/17 at 16:00 Dextrose (D50w Syringe) 50 ml Q15M PRN IV DECREASED GLUCOSE; Start 03/15/17 at 16:00 Glucagon (Glucagen) 1 mg Q15M PRN IM DECREASED GLUCOSE; Start 03/15/17 at 16:00 Glucose (Glutose) 15 gm Q15M PRN BUCCAL DECREASED GLUCOSE; Start 03/15/17 at 16 :00 Miscellaneous Information (Pending [facility] Order For Wound Care) This patient meade... PRN PRN XX WOUND CARE; Start 03/15/17 at 19:30 Ascorbic Acid (Vitamin C) 500 mg BID PO Last administered on 03/23/17 09:55; Admin Dose 500 MG; Start 03/16/17 at 21:00 Aspirin (Aspirin) 81 mg DAILY PO Last administered on 03/23/17 09:56; Admin Dose 81 MG; Start 03/17/17 at 09:00 Atorvastatin Calcium (Lipitor) 10 mg HS PO Last administered on 03/22/17 21:28 ; Admin Dose 10 MG; Start 03/16/17 at 21:00 Bisacodyl (Dulcolax Supp) 10 mg DAILY PRN [place] CONSTIPATION; Start 03/16/17 at 15 :30 Buspirone HCl (Buspar) 7.5 mg TID PO Last administered on 03/23/17 13:22; Admin Dose 7.5 MG; Start 03/16/17 at 21:00 Calcium Carbonate (Tums) 1,000 mg Q4H PRN PO indigestion; Start 03/16/17 at 15: 30 Calcium/Vitamin D ([place]/ Vit-D (500/200)) 1 tab BID PO Last administered on 03/23/17 10:03; Admin Dose 1 TAB; Start 03/16/17 at 21:00 Clonidine (Catapres) 0.1 mg Q6H PRN PO ELEVATED SYSTOLIC BP; Start 03/16/17 at 15:30 Docusate Sodium (Colace) 200 mg BID PO Last administered on 03/17/17 08:30; Admin Dose 200 MG; Start 03/16/17 at 21:00 Fluticasone Propionate (Flonase 0.05% Nasal) 2 spray BID NASAL Last administered on 03/22/17 21:28; Admin Dose 2 SPRAY; Start 03/16/17 at 21:00 Guaifenesin/ Dextromethorphan (Mucinex Dm) 1 tab BID PO Last administered on 09:57; Admin Dose 1 TAB; Start 03/16/17 at 21:00 Lactobacillus Acidophilus/ Rhamnosus (Culturelle) 1 cap BID PO Last administered on 03/23/17 09:56; Admin Dose 1 CAP; Start 03/16/17 at 21:00 Multivitamins Therapeutic (Theragran) 1 tab DAILY PO Last administered on 09:56; Admin Dose 1 TAB; Start 03/17/17 at 09:00 Nystatin (Nystatin Susp) 5 ml TID PO Last administered on 03/23/17 13:22; Admin Dose 5 ML; Start 03/16/17 at 21:00 Senna/Docusate Sodium (Senokot-S) 1 tab BID PO Last administered on 03/21/17 21 :24; Admin Dose 1 TAB; Start 03/16/17 at 21:00 Sertraline HCl (Zoloft) 25 mg DAILY PO Last administered on 03/23/17 10:00; Admin Dose 25 MG; Start 03/17/17 at 09:00 Cholecalciferol (Vitamin D) 1,200 units DAILY PO Last administered on 03/23/17 09:56; Admin Dose 1,200 UNITS; Start 03/17/17 at 09:00 Famotidine (Pepcid) 20 mg Q12 PO Last administered on 03/23/17 09:56; Admin Dose 20 MG; Start 03/17/17 at 21:00 Acetaminophen/ Hydrocodone Bitart ([place] (5/325)) 1 tab Q4H PRN PO PAIN LEVEL 4 -6 Last administered on 03/22/17 21:30; Admin Dose 1 TAB; Start 03/17/17 at 17: 30 Methylprednisolone Sodium Succinate (Solu-Medrol) 40 mg Q6 IV Last administered on 03/23/17 17:52; Admin Dose 40 MG; Start 03/18/17 at 18:00 Collagenase (Santyl) 1 applic DAILY TOP Last administered on 03/23/17 10:11; Admin Dose 1 APPLIC; Start 03/19/17 at 11:00 Alprazolam (Xanax) 0.5 mg Q8 PO Last administered on 03/23/17 14:25; Admin Dose 0.5 MG; Start 03/22/17 at 22:00 Magnesium Hydroxide (Milk Of Mag) 30 ml DAILY PRN PO CONSTIPATION; Start at 19:00 CHRISTIANA HARDIN Mar 23, 2017 19:44
[2017-03-23] MEDS: ATORVASTATIN 10 MG TAB PO SCH (21:02)
[2017-03-23] MEDS: HYDROCODONE/APAP (5/325) TAB PO PRN (21:05)
[2017-03-24] VITALS (11 sets, daily range): BP systolic 101–135; BP diastolic 68–88; PULSE 79–120; RESP 16–24
[2017-03-24] MEDS: METHYLPREDNISOLONE 40 MG INJ IV SCH ×2 (00:36→05:37)
[2017-03-24] MEDS: ALPRAZOLAM 0.5 MG TAB PO SCH ×3 (06:00→13:13)
[2017-03-24] MEDS: INSULIN ASPART [NOVOLOG] 3 ML PEN SC SCH ×3 (07:55→17:55)
--- NOTE | 2017-03-24 07:58 | PN ---
DATE: 03/23/2017 CARDIOLOGY FOLLOWUP SUBJECTIVE: Discussed with the staff and the patient's family members at the bedside. The patient remains severely dyspneic, complaining of shortness of breath. No chest pain or pressure. No palpi tation, no syncope ____. Rhythm strip has remained in sinus rhythm, sinus tachycardia. MEDICATIONS: Reviewed. PHYSICAL EXAMINATION: VITAL SIGNS: Temperature 98.4, heart rate of 111, blood pressure 117/80, respiration rate of 36, sa turating 88% to 92% on oxygen. HEENT: Normocephalic, atraumatic. Appears to be in mild to moderate respiratory distress. CARDIOVASCULAR: Regular rate and rhythm. Systolic ejection murmur. PULMONARY: No wheezes heard anteriorly. Mild rhonchi, diffuse. GASTROINTESTINAL: Soft, nontender. EXTREMITIES: No significant lower extremity edema. NEUROLOGIC: Awake and alert. PSYCHIATRIC: Calm and very pleasant. DERMATOLOGIC: With multiple ecchymoses. No active bleeding. LABORATORY: WBC of 15, hemoglobin 12.9, platelet 163. Sodium 136, potassium 4.8, BUN of 21, creati nine 0.46, glucose of 96. ASSESSMENT AND PLAN: 1. Severe hypoxemic respiratory failure. 2. Severe aortic stenosis. 3. History of positive heart failure possibly. Currently appears to be stable. The patient does n ot appear to be fluid overloaded. 4. Pulmonary fibrosis. 5. Hypertension, currently under control on no medications. Abnormal EKG as above. RECOMMENDATIONS: We will continue with the pulmonary care. Will monitor from the cardiac standpoin t. teletypesetter monitor will be continued. Aspirin will be continued. Oxygen supplement will be cont inued. Statin will be continued. Blood pressure has remained stable off any medication. We will c ontramonitaue to monitor his blood pressure at this point only. Dictated By: JIAN RESTREPO MD AV/AMY Conf#: [id number] DID#: [id number] CC: * Dr. Bermeo; CHRISTIANA HARDIN CHIEF ENGINEER'S HELPER;*[facility]*
[2017-03-24] MEDS: BUSPIRONE 5 MG TAB PO SCH ×2 (08:30→13:13)
[2017-03-24] MEDS: DICYCLOMINE 10 MG CAP PO SCH ×3 (08:30→17:56)
[2017-03-24] MEDS: NYSTATIN SUSP 5 ML CUP PO SCH ×2 (08:32→12:00)
[2017-03-24] MEDS: SERTRALINE 50 MG TAB PO SCH (08:32)
[2017-03-24] MEDS: LACTOBACILLUS RHAMNOSUS CAP PO SCH (08:32)
[2017-03-24] MEDS: CALCIUM/VITAMIN D (500/200) TAB PO SCH (08:32)
[2017-03-24] MEDS: DOCUSATE SODIUM 100 MG CAP PO SCH (08:33)
[2017-03-24] MEDS: COLLAGENASE 30 GM TUBE TOP SCH (08:33)
[2017-03-24] MEDS: FAMOTIDINE 20 MG TAB PO SCH (08:33)
[2017-03-24] MEDS: GUAIFENESIN/DM (SR) TAB PO SCH (08:33)
[2017-03-24] MEDS: FLUTICASONE 0.05% 16 GM NAS SPRAY NASAL SCH (08:33)
[2017-03-24] MEDS: SENNA/DOCUSATE NA (8.6MG/50MG) TAB PO SCH (08:33)
[2017-03-24] MEDS: CHOLECALCIFEROL 400 UNITS TAB PO SCH (08:33)
[2017-03-24] MEDS: ASCORBIC ACID 500 MG TAB PO SCH (08:33)
[2017-03-24] MEDS: ASPIRIN 81 MG TAB PO SCH (08:33)
[2017-03-24] MEDS: MULTIVITAMINS THERAPEUTIC TAB PO SCH (08:33)
[2017-03-24] MEDS: ENOXAPARIN 40 MG/0.4 ML SYG SC SCH (08:45)
--- NOTE | 2017-03-24 09:01 | PN ---
DATE: 03/24/2017 CARDIOLOGY FOLLOWUP SUBJECTIVE: Discussed with the staff. Rhythm strip was reviewed. The patient remains in sinus rhy thm, sinus tachycardia. No chest pain or pressure. Still complains of shortness of breath. No ort hopnea or PND, but complains of cough, shortness of breath and difficulty taking a breath. MEDICATIONS: Reviewed as per medication reconciliation, personally reviewed. PHYSICAL EXAMINATION: VITAL SIGNS: Temperature 98.1, heart rate of 85, blood pressure 115/77, respiratory rate of 19, sat urating 96%. HEENT: Normocephalic, atraumatic. Appears in mild to moderate respiratory distress. CARDIOVASCULAR: Tachycardic, systolic ejection murmur radiating to carotids. PULMONARY: Anteriorly with no wheezes heard. Mild rhonchi, diffuse. GASTROINTESTINAL: Soft, nontender. EXTREMITIES: No significant lower extremity edema. NEUROLOGIC: Awake, alert, oriented x3. PSYCHIATRIC: Calm and very pleasant. DERMATOLOGIC: With multiple ecchymoses, with no active bleeding. LABORATORY DATA: Glucose this morning is 161. ASSESSMENT AND PLAN: 1. Hypoxemic respiratory failure. 2. Severe aortic stenosis. 3. History of possible congestive heart failure secondary to above, currently appears to be euvolem ic and stable. 4. History of pulmonary fibrosis. 5. Hypertension, currently stable, on no medication. 6. Abnormal EKG secondary to above. RECOMMENDATIONS: Pulmonary care will be continued. We will follow regularly and diuresis will be g iven as needed basis. Respiratory care including steroid management as per pulmonary. Monitor on t elemetry meanwhile. Dictated By: JIAN RESTREPO MD AV/AMY Conf#: [id number] DID#: [id number] CC: DE BENSON MD; CHRISTIANA HARDIN NP;*EndCC*
[2017-03-24] MEDS: ALBUTEROL/IPRATROPIUM (NEB) 3 ML AMP NEB PRN ×2 (10:05→15:53)
[2017-03-24 10:21] LABS: ADD SCAN DIFF NO
[2017-03-24 10:30] LABS: ABNORMAL IP MESSAGE 1; BASOPHILS % 0.1 % (0.0-2.0); HEMOGLOBIN 13.3 g/dl (14.0-18.0); LYMPHOCYTES # 0.2 10^3/ul (0.8-2.9); LYMPHOCYTES % 1.5 % (15.0-51.0); MEAN CORPUSCULAR HEMOGLOBIN 31.4 pg (29.0-33.0); MEAN CORPUSCULAR HGB CONC 32.4 g/dl (32.0-37.0); MEAN CORPUSCULAR VOLUME 96.7 fl (82.0-101.0); MEAN PLATELET VOLUME 10.5 fl (7.4-10.4); MONOCYTE # 0.3 10^3/ul (0.3-0.9); MONOCYTES % 1.9 % (0.0-11.0); NEUTROPHIL # 14.6 10^3/ul (1.6-7.5); NEUTROPHILS % 95.1 % (39.0-77.0); PLATELET COUNT 156 10^3/UL (140-415); RED BLOOD COUNT 4.24 10^6/ul (4.70-6.10); RED CELL DISTRIBUTION WIDTH 13.5 % (11.5-14.5); WHITE BLOOD COUNT 15.3 10^3/ul (4.8-10.8)
[2017-03-24 10:44] LABS: CALCIUM 8.6 mg/dl (8.4-10.2); CREATININE 0.4 mg/dl (0.61-1.24); POTASSIUM 4.6 mmol/L (3.5-5.1)
--- NOTE | 2017-03-24 11:28 | CONS ---
Date/Time of Note Date/Time of Note DATE: 03/24/17 TIME: 11:27 Consult Date/Type/Reason Admit Date/Time March 15, 2017 at 12:55 Type of Consultation: Pulmonary/critical care Subjective Patient comfortable this morning no new events Objective Vital Signs Date Time Temp Pulse Resp B/P Pulse Ox O2 Delivery O2 Flow Rate FiO2 03/24/17 11:02 98.2 110 20 135/88 92 03/24/17 10:05 100 Intake and Output 03/23/17 03/23/17 03/24/17 14:59 22:59 06:59 Intake Total 720 ml 480 ml Output Total 600 ml 1250 ml Balance 120 ml -770 ml Exam GENERAL: Elderly gentleman on high flow oxygen VITAL SIGNS: per chart NECK: Supple. No JVD or lymphadenopathy. CARDIAC EXAM: S1, S2. No added sounds or murmurs. CHEST: Diminished air entry bilaterally with rales ABDOMEN: Soft, nontender. No guarding or rebound. EXTREMITIES: No cyanosis, clubbing or edema. NEUROLOGIC: Generalized weakness. No focal deficits. Results/Medications Result Diagram: 03/24/17 0950 03/24/17 0950 Results 24 hrs Laboratory Tests Test 03/23/17 13:23 03/23/17 17:50 03/23/17 21:29 03/24/17 08:04 Bedside Glucose 90 97 121 113 Test 03/24/17 09:50 White Blood Count 15.3 H Red Blood Count 4.24 L Hemoglobin 13.3 L Hematocrit 41.0 L Mean Corpuscular Volume 96.7 Mean Corpuscular Hemoglobin 31.4 Mean Corpuscular Hemoglobin Concent 32.4 Red Cell Distribution Width 13.5 Platelet Count 156 Mean Platelet Volume 10.5 H Neutrophils % 95.1 H Lymphocytes % 1.5 L Monocytes % 1.9 Eosinophils % 0.0 Basophils % 0.1 Nucleated Red Blood Cells % 0.0 Neutrophils # 14.6 H Lymphocytes # 0.2 L Monocytes # 0.3 Eosinophils # 0.0 Basophils # 0.0 Nucleated Red Blood Cells # 0.0 Sodium Level 134 L Potassium Level 4.6 Chloride Level 94 L Carbon Dioxide Level 36 H Anion Gap 9 Blood Urea Nitrogen 20 Creatinine 0.40 L Glucose Level 184 Calcium Level 8.6 Medications Current Medications Ondansetron HCl (Zofran Inj) 4 mg Q6H PRN IV NAUSEA AND/OR VOMITING; Start at 13:30 Acetaminophen (Tylenol Liquid) 650 mg Q6H PRN PO PAIN LEVEL 1-3 OR FEVER Last administered on 03/17/17 20:33; Admin Dose 650 MG; Start 03/15/17 at 13:30 Morphine Sulfate (morphine) 2 mg Q4H PRN IV PAIN LEVEL 7-10; Start 03/15/17 at 13:30 Enoxaparin Sodium (Lovenox) 40 mg DAILY SC Last administered on 03/24/17 08:45 ; Admin Dose 40 MG; Start 03/16/17 at 09:00 Miscellaneous Information 1 ea NOTE XX ; Start 03/15/17 at 16:00 Glucose (Glutose) 15 gm Q15M PRN PO DECREASED GLUCOSE; Start 03/15/17 at 16:00 Glucose (Glutose) 22.5 gm Q15M PRN PO DECREASED GLUCOSE; Start 03/15/17 at 16: 00 Dextrose (D50w Syringe) 25 ml Q15M PRN IV DECREASED GLUCOSE; Start 03/15/17 at 16:00 Dextrose (D50w Syringe) 50 ml Q15M PRN IV DECREASED GLUCOSE; Start 03/15/17 at 16:00 Glucagon (Glucagen) 1 mg Q15M PRN IM DECREASED GLUCOSE; Start 03/15/17 at 16:00 Glucose (Glutose) 15 gm Q15M PRN BUCCAL DECREASED GLUCOSE; Start 03/15/17 at 16 :00 Miscellaneous Information (Pending [facility] Order For Wound Care) This patient meade... PRN PRN XX WOUND CARE; Start 03/15/17 at 19:30 Ascorbic Acid (Vitamin C) 500 mg BID PO Last administered on 03/24/17 08:33; Admin Dose 500 MG; Start 03/16/17 at 21:00 Aspirin (Aspirin) 81 mg DAILY PO Last administered on 03/24/17 08:33; Admin Dose 81 MG; Start 03/17/17 at 09:00 Atorvastatin Calcium (Lipitor) 10 mg HS PO Last administered on 03/23/17 21:02 ; Admin Dose 10 MG; Start 03/16/17 at 21:00 Bisacodyl (Dulcolax Supp) 10 mg DAILY PRN [place] CONSTIPATION; Start 03/16/17 at 15 :30 Buspirone HCl (Buspar) 7.5 mg TID PO Last administered on 03/24/17 08:30; Admin Dose 7.5 MG; Start 03/16/17 at 21:00 Calcium Carbonate (Tums) 1,000 mg Q4H PRN PO indigestion; Start 03/16/17 at 15: 30 Calcium/Vitamin D (Oyster Shell/ Vit-D (500/200)) 1 tab BID PO Last administered on 03/24/17 08:32; Admin Dose 1 TAB; Start 03/16/17 at 21:00 Clonidine (Catapres) 0.1 mg Q6H PRN PO ELEVATED SYSTOLIC BP; Start 03/16/17 at 15:30 Docusate Sodium (Colace) 200 mg BID PO Last administered on 03/23/17 21:02; Admin Dose 200 MG; Start 03/16/17 at 21:00 Fluticasone Propionate (Flonase 0.05% Nasal) 2 spray BID NASAL Last administered on 03/24/17 08:33; Admin Dose 2 SPRAY; Start 03/16/17 at 21:00 Guaifenesin/ Dextromethorphan (Mucinex Dm) 1 tab BID PO Last administered on 08:33; Admin Dose 1 TAB; Start 03/16/17 at 21:00 Lactobacillus Acidophilus/ Rhamnosus (Culturelle) 1 cap BID PO Last administered on 03/24/17 08:32; Admin Dose 1 CAP; Start 03/16/17 at 21:00 Multivitamins Therapeutic (Theragran) 1 tab DAILY PO Last administered on 08:33; Admin Dose 1 TAB; Start 03/17/17 at 09:00 Nystatin (Nystatin Susp) 5 ml TID PO Last administered on 03/24/17 08:32; Admin Dose 5 ML; Start 03/16/17 at 21:00 Senna/Docusate Sodium (Senokot-S) 1 tab BID PO Last administered on 03/23/17 21 :02; Admin Dose 1 TAB; Start 03/16/17 at 21:00 Sertraline HCl (Zoloft) 25 mg DAILY PO Last administered on 03/24/17 08:32; Admin Dose 25 MG; Start 03/17/17 at 09:00 Cholecalciferol (Vitamin D) 1,200 units DAILY PO Last administered on 03/24/17 08:33; Admin Dose 1,200 UNITS; Start 03/17/17 at 09:00 Famotidine (Pepcid) 20 mg Q12 PO Last administered on 03/24/17 08:33; Admin Dose 20 MG; Start 03/17/17 at 21:00 Acetaminophen/ Hydrocodone Bitart (Braymer (5/325)) 1 tab Q4H PRN PO PAIN LEVEL 4 -6 Last administered on 03/23/17 21:05; Admin Dose 1 TAB; Start 03/17/17 at 17: 30 Methylprednisolone Sodium Succinate (Solu-Medrol) 40 mg Q6 IV Last administered on 03/24/17 05:37; Admin Dose 40 MG; Start 03/18/17 at 18:00 Collagenase (Santyl) 1 applic DAILY TOP Last administered on 03/24/17 08:33; Admin Dose 1 APPLIC; Start 03/19/17 at 11:00 Alprazolam (Xanax) 0.5 mg Q8 PO Last administered on 03/24/17 08:31; Admin Dose 0.5 MG; Start 03/22/17 at 22:00 Magnesium Hydroxide (Milk Of Mag) 30 ml DAILY PRN PO CONSTIPATION; Start at 19:00 Magnesium Hydroxide (Milk Of Mag) 30 ml DAILY PRN PO CONSTIPATION; Start at 20:00 Assessment/Plan Chief Complaint/Hosp Course Assessment 1. Acute on chronic hypoxemic respiratory failure likely secondary to exacerbation of underlying idiopathic pulmonary fibrosis, possible intrapulmonary shunt 2. History of gastroesophageal reflux disease 3. Severe aortic stenosis Plan 1. Continue steroids 2. Diuretics as tolerated 3. Supplemental O2, decrease FiO2 as tolerated aim to keep O2 sat above 88%. 4. Aspiration precautions Prognosis remains guarded. Discussed placement with family this morning. Problems: LIZ FISHER MD, [facility] Mar 24, 2017 11:28
[2017-03-24] MEDS ORDERED: METHYLPREDNISOLONE 40 MG INJ IV SCH (21:00)
--- NOTE | 2017-03-29 01:27 | DS ---
DATE OF ADMISSION: 03/15/2017 DATE OF DISCHARGE: 03/24/2017 FINAL DIAGNOSES: 1. Hypoxemic respiratory insufficiency, secondary to acute exacerbation of idiopathic pulmonary fib rosis. 2. Severe aortic stenosis. 3. Gastroesophageal reflux disease. 4. Anxiety. 5. Hypertension. BRIEF HISTORY: The patient is a 76-year-old gentleman with history of pulmonary fibrosis. The mona ent was recuperating at senior care facility and was brought to the emergency room for increased shortness of breath. The patient was on nasal cannula at senior care facility. Patient also h ad a history of vocal cord paralysis. The patient was placed on BiPAP by paramedics and upon evalua tion in the emergency room, patient was started on broad-spectrum antibiotics for possible underlyin g pneumonia. The patient was evaluated and followed by Dr. Tineo and Dr. Santamaria in pulmonology cons ultation. Patient was also followed by Dr. Pereira in cardiology consultation. The patient underwen t a 2D echo which revealed normal left ventricular systolic function with ejection fraction of 65%. The patient was also noted to have severe aortic stenosis. The patient was started on BiPAP and th en subsequently switched to Vapotherm 100% flow oxygen. The patient was also started on steroids. The patient's condition improved. The patient was monitored in the intensive care unit and then was transferred to telemetry and was closely monitored on telemetry floor. The patient was also evalua marco a by Dr. Franco in ENT consultation and was treated for cerumen impaction and was also treated for a nasal obstruction. The patient has also given Xanax p.r.n. for anxiety. Chest x-ray was closely monitored. Patient's antibiotics were discontinued. The patient's condition was stabilized and the patient was discharged to [facility] for further management and care. CONDITION ON DISCHARGE: Hemodynamically stable. ACTIVITY: As patient tolerates. DIET: Regular diet. DISCHARGE MEDICATIONS: 1. Solu-Medrol 40 mg q.12h.IV. 2. Milk of magnesia p.r.n. for constipation. 3. Xanax 0.5 mg q.6h p.o. 4. Santyl topical. 5. Pepcid. 6. for pain. 7. Aspirin. 8. Multivitamins. 9. Zoloft. 10. Vitamin D. 11. Vitamin C. 12. Lipitor. 13. BuSpar. 14. Colace. 15. Flonase. 16. Mucinex. 17. Lactobacillus. 18. Nystatin suspension. 19. Senokot. 20. Bentyl. 21. Dulcolax p.r.n. 22. Insulin per moderate algorithm sliding scale with hypoglycemia protocol. 23. Tylenol p.r.n. for fever and pain. Interdisciplinary plan of care was established for this patient. Plan of care was discussed with Dr Petey Benson. Dictated By: CHRISTIANA HARDIN MASK DESIGN ENGINEER for DE BENSON MD SR/NTS Conf#: [id number] DID#: [id number]
== END 2017-03-24 20:50 | disposition other institution (70) | DRG 196 ==
LOC: E/R 11:11 → ICU 12:55 → TEL 18:11
PROVIDERS: ADMIT Internal Medicine; ATTEND Internal Medicine
DX: J84.112 Idiopathic pulmonary fibrosis (principal); J96.21 Acute and chronic respiratory failure with hypoxia; J18.9 Pneumonia, unspecified organism; L89.153 Pressure ulcer of sacral region, stage 3; I11.0 Hypertensive heart disease with heart failure; I35.0 Nonrheumatic aortic (valve) stenosis; I50.9 Heart failure, unspecified; J96.22 Acute and chronic respiratory failure with hypercapnia; F41.9 Anxiety disorder, unspecified; K21.9 Gastro-esophageal reflux disease without esophagitis; F32.9 Major depressive disorder, single episode, unspecified; R51 Headache; J34.89 Other specified disorders of nose and nasal sinuses; J34.2 Deviated nasal septum; J31.0 Chronic rhinitis; H61.23 Impacted cerumen, bilateral
CPT/HCPCS: 36415; 36600; 71010; 80048; 80053; 82803; 82962; 83605; 83880; 84484; 85025; 85610; 85730; 86850; 86900; 86901; 87040; 87070; 87081; 93005; 93306; 94640; 94660; 94664; 96365; 96375; J1650; J1815; J1956; J2060; J2270; J2543; J2920; J2930; J3370